=== PATIENT | male | born 1955 | race Caucasian/White ===

== ENCOUNTER 2017-12-14 16:43 | Emergency (ER) | payer MEDICARE, OTHER ==
[2017-12-14] MEDS ORDERED: traMADol TAB* 50 MG PO ONE (20:03)
[2017-12-14 21:14] VITALS: BP 145/85
--- NOTE | 2017-12-15 14:32 | ED ---
Uche Julien Sixian, scribed for Elkin Vogt MD on 12/14/17 at 1940 . Skin Complaint - HPI Summary HPI Summary: This patient is a 62 year old M presenting to ED with a chief complaint of open sores on buttocks since 1 week ago. The patient rates the pain 4/10 in severity. . Patient reports spending a moderate amount of time sitting in a chair. Pt found to have sores on his buttock by his PCP. Pt sent to the ED by his PCP for possible I&D. Pt denies ant F/C. - History of Current Complaint Chief Complaint: EDRashSkinAbscess Time Seen by Provider: 12/14/17 19:18 Stated Complaint: INFECTION ON BUTTOCKS Hx Obtained From: Patient Onset/Duration: Started Days Ago, Still Present Timing: Constant, Lasting Days Current Severity: Moderate Pain Intensity: 4 Pain Scale Used: 0-10 Numeric Skin Location: Other: - Buttocks Aggravating Symptom(s): Nothing Alleviating Symptom(s): Nothing - Additional Pertinent History Primary Care Physician: PUNEET - Allergy/Home Medications Allergies/Adverse Reactions: Allergies Allergy/AdvReac Type Severity Reaction Status Date / Time amlodipine Allergy Swelling Verified 12/14/17 16:49 blue dye Allergy Unknown Verified 12/14/17 16:49 Reaction Details meperidine Allergy GI Upset Verified 12/14/17 16:49 pregabalin [From Lyrica] Allergy Swelling Verified 12/14/17 16:49 spironolactone Allergy Swelling Verified 12/14/17 16:49 [From Aldactone] PMH/Surg Hx/FS Hx/Imm Hx Endocrine/Hematology History: Reports: Hx Anticoagulant Therapy - coumadin, Hx Anemia Denies: Hx Diabetes, Hx Thyroid Disease Cardiovascular History: Reports: Hx Auto Implanted Cardiovert Defib, Hx Cardiac Arrest - 01/24/14, Hx Congenital Heart Disease, Hx Congestive Heart Failure, Hx Coronary Artery Disease - HISTORY OF STENTS AND BYPASS SURGERY, Hx Hypercholesterolemia, Hx Hypertension - ON MEDICATION FOR, Hx Pacemaker/ICD - [employer]- DR. HUDSON FOLLOWS, Hx Peripheral Vascular Disease, Hx Valvular Heart Disease - AORTIC VALVE REPLACEMENT/AORTIC DISSECTION-SINCE SURGERY 2003, Other Cardiovascular Problems/Disorders - ATRIAL FIBRILLATION Respiratory History: Reports: Hx Pulmonary Embolism, Hx Seasonal Allergies, Hx Sleep Apnea, Other Respiratory Problems/Disorders - S/P TOBACCO USE Denies: Hx Asthma, Hx Chronic Obstructive Pulmonary Disease (COPD) GI History: Reports: Hx Gastroesophageal Reflux Disease - PER DR. REYNA'S NOTE - ON MEDICATION FOR, Other GI Disorders - ISCHEMIC COLITIS Denies: Hx Ulcer History: Reports: Other Problems/Disorders - ACUTE KIDNEY INJURY-2015 R/T MEDICATION Denies: Hx Renal Disease Musculoskeletal History: Reports: Hx Arthritis - NECK, UPPER BACK, Hx Back Problems - Degenerative disk disease Sensory History: Reports: Hx Contacts or Glasses - GLASSES AT TIMES Denies: Hx Hearing Aid Opthamlomology History: Reports: Hx Contacts or Glasses - GLASSES AT TIMES Neurological History: Reports: Other Neuro Impairments/Disorders - PERIPHERAL NEUROPATHY-EXTREMITIES Denies: Hx Dementia, Hx Seizures Psychiatric History: Denies: Hx Substance Abuse - Surgical History Surgery Procedure, Year, and Place: aortic dissection, right wrist surgery, tonsillectomy, cardiac stents CABG three vessel-[place] Coarctation of the aortaaortic valve replacement 2003 -[place] TOE AMPUTATED ON BOTH RIGHT & LEFT 2013 [facility] Hx Anesthesia Reactions: No - Immunization History Date of Influenza Vaccine: 07/2017 Infectious Disease History: Yes Infectious Disease History: Denies: Hx Hepatitis, Hx Human Immunodeficiency Virus (HIV), Traveled Outside the [place] in Last 30 Days - Family History Known Family History: Negative: Hypertension, Diabetes - Social History Alcohol Use: Occasionally Alcohol Amount: 1 BEER DAILY Substance Use Type: Reports: None Smoking Status (MU): Former Smoker Type: Cigarettes Amount Used/How Often: 2 PACKS A WEEK SINCE AGE 15 Length of Time of Smoking/Using Tobacco: 30 YRS Have You Smoked in the Last Year: No Review of Systems Negative: Fever Positive: Other - Sores on buttocks All Other Systems Reviewed And Are Negative: Yes Physical Exam - Summary Physical Exam Summary: Appearance: Well-appearing, no distress, Well-nourished Skin: Warm, color reflects adequate perfusion. Right buttocks 5x2 cm area of erythema, stage 1 ulcer. Nontender. No warmth. No drainage. Left buttocks 1.5x1 cm area of erythema. Superficial. Skin breakdown. Nontender. No warmth. No drainage. Head: Normal Head/Face inspection Eyes: Conjunctiva clear ENT: Normal inspection Neck: Supple, no nodes, no JVD. Respiratory: Lungs clear, Normal breath sounds, no respiratory distress Cardio: RRR, No murmur, pulses normal, brisk capillary refill Abdomen: soft, nontender, no guarding, no rebound Bowel sounds: present Musculoskeletal: Strength Intact/ ROM intact. No calf tenderness. No edema. Neuro: Alert, muscle tone normal, facial symmetry, speech normal, sensory/motor intact Psychological: Normal Triage Information Reviewed: Yes Vital Signs On Initial Exam: Initial Vitals Temp Pulse Resp BP Pulse Ox 96.9 F 70 14 127/53 98 12/14/17 16:49 18 16:49 12/14/17 16:49 12/14/17 16:49 12/14/17 16:49 Vital Signs Reviewed: Yes Diagnostics - Vital Signs Vital Signs Temp Pulse Resp BP Pulse Ox 12/14/17 16:49 96.9 F 70 14 127/53 98 - Laboratory Lab Statement: Any lab studies that have been ordered have been reviewed, and results considered in the medical decision making process. Course/Dx - Course Course Of Treatment: pt with stage 1 decubitus buttock ulcers. Plan for pain control with placement of wound dressing. Pt will f/u with his PCP for further monitoring - Differential Diagnoses - Skin Complaint Differential Diagnoses: Abscess, Cellulitis, Contact Dermatitis, Erythema Multiforme, Urticaria - Diagnoses Provider Diagnoses: Decubitus ulcer of buttock, stage 1 Discharge - Discharge Plan Condition: Improved Disposition: HOME Prescriptions: traMADol TAB* [Ultram*] 50 mg PO Q6HR PRN 3 Days #10 tab MDD 200mg PRN Reason: Pain Referrals: Bruce Reyna MD [Primary Care Provider] - Additional Instructions: RETURN TO THE EMERGENCY DEPARTMENT FOR CHANGING OR WORSENING SYMPTOMS. The documentation as recorded by the Uche dumont Sixian accurately reflects the service I personally performed and the decisions made by , Elkin Vogt MD.
== END 2017-12-14 21:10 | disposition home or self-care (01) ==
LOC: ED 16:43
DX: L89.311 Pressure ulcer of right buttock, stage 1 (principal); Z79.01 Long term (current) use of anticoagulants; I48.91 Unspecified atrial fibrillation; Z95.2 Presence of prosthetic heart valve; I50.9 Heart failure, unspecified; I25.10 Atherosclerotic heart disease of native coronary artery without angina pectoris; Z87.891 Personal history of nicotine dependence
CPT/HCPCS: 99282; A9270-GY

== ENCOUNTER 2018-01-23 16:46 | Emergency (ER) | payer MEDICARE, OTHER ==
--- NOTE | 2018-01-23 19:02 | ED ---
Adult Trauma - HPI Summary HPI Summary: Patient advised by PCP to come to the ED today S/P mechanical fall yesterday. Patient states he slipped out of a chair yesterday. Patient states he does not know why he is here, has no complaints. Denies head injury, LOC, vision change, [place], N/V, fever, cough, sore throat, CP, SOB, abdomen pain, musculoskeletal pain , change in urine or BM. Medical history of CAD, HLD, HTN, anemia, anoxic brain injury, CABG, ND, cardiac stents, A. fib. Positive anti-coag. M - History of Current Complaint Chief Complaint: EDGeneral Stated Complaint: GENERAL ILLNESS Time Seen by Provider: 01/23/18 17:59 Hx Obtained From: Patient Mechanism of Injury: Fall Ambulatory at the Scene: Yes Loss of Consciousness: no loss of consciousness Current Severity: None Pain Intensity: 0 Pain Scale Used: 0-10 Numeric Associated Signs & Symptoms: Positive: Negative - Additional Pertinent History Primary Care Physician: PUNEET - Allergy/Home Medications Allergies/Adverse Reactions: Allergies Allergy/AdvReac Type Severity Reaction Status Date / Time amlodipine Allergy Swelling Verified 12/14/17 16:49 blue dye Allergy Unknown Verified 12/14/17 16:49 Reaction Details meperidine Allergy GI Upset Verified 12/14/17 16:49 pregabalin [From Lyrica] Allergy Swelling Verified 12/14/17 16:49 spironolactone Allergy Swelling Verified 12/14/17 16:49 [From Aldactone] PMH/Surg Hx/FS Hx/Imm Hx Endocrine/Hematology History: Reports: Hx Anticoagulant Therapy - coumadin, Hx Anemia Denies: Hx Diabetes, Hx Thyroid Disease Cardiovascular History: Reports: Hx Auto Implanted Cardiovert Defib, Hx Cardiac Arrest - 01/24/14, Hx Congenital Heart Disease, Hx Congestive Heart Failure, Hx Coronary Artery Disease - HISTORY OF STENTS AND BYPASS SURGERY, Hx Hypercholesterolemia, Hx Hypertension - ON MEDICATION FOR, Hx Pacemaker/ICD - [employer]- DR. HUDSON FOLLOWS, Hx Peripheral Vascular Disease, Hx Valvular Heart Disease - AORTIC VALVE REPLACEMENT/AORTIC DISSECTION-SINCE SURGERY 2003, Other Cardiovascular Problems/Disorders - ATRIAL FIBRILLATION Respiratory History: Reports: Hx Pulmonary Embolism, Hx Seasonal Allergies, Hx Sleep Apnea, Other Respiratory Problems/Disorders - S/P TOBACCO USE Denies: Hx Asthma, Hx Chronic Obstructive Pulmonary Disease (COPD) GI History: Reports: Hx Gastroesophageal Reflux Disease - PER DR. REYNA'S NOTE - ON MEDICATION FOR, Other GI Disorders - ISCHEMIC COLITIS Denies: Hx Ulcer History: Reports: Other Problems/Disorders - ACUTE KIDNEY INJURY-2014 R/T MEDICATION Denies: Hx Renal Disease Musculoskeletal History: Reports: Hx Arthritis - NECK, UPPER BACK, Hx Back Problems - Degenerative disk disease Sensory History: Reports: Hx Contacts or Glasses - GLASSES AT TIMES Denies: Hx Hearing Aid Opthamlomology History: Reports: Hx Contacts or Glasses - GLASSES AT TIMES Neurological History: Reports: Other Neuro Impairments/Disorders - PERIPHERAL NEUROPATHY-EXTREMITIES Denies: Hx Dementia, Hx Seizures Psychiatric History: Denies: Hx Substance Abuse - Surgical History Surgery Procedure, Year, and Place: aortic dissection, right wrist surgery, tonsillectomy, cardiac stents CABG three vessel-[place] Coarctation of the aortaaortic valve replacement 2003 -[place] TOE AMPUTATED ON BOTH RIGHT & LEFT 2013 [facility] Hx Anesthesia Reactions: No - Immunization History Date of Influenza Vaccine: 07/2017 Infectious Disease History: No Infectious Disease History: Denies: Hx Hepatitis, Hx Human Immunodeficiency Virus (HIV), Traveled Outside the in Last 30 Days - Family History Known Family History: Negative: Hypertension, Diabetes - Social History Alcohol Use: Occasionally Alcohol Amount: 1 BEER DAILY Substance Use Type: Reports: None Smoking Status (MU): Former Smoker Type: Cigarettes Amount Used/How Often: 2 PACKS A WEEK SINCE AGE 15 Length of Time of Smoking/Using Tobacco: 30 YRS Have You Smoked in the Last Year: No Review of Systems Constitutional: Negative Eyes: Negative ENT: Negative Cardiovascular: Negative Respiratory: Negative Gastrointestinal: Negative Genitourinary: Negative Musculoskeletal: Negative Skin: Negative Neurological: Negative Psychological: Normal All Other Systems Reviewed And Are Negative: Yes Physical Exam - Summary Physical Exam Summary: Patient flexes and extends all joints of bilateral upper extremities and lower extremities without any indication of pain. No indication of pain with palpation of head, face, neck, back, chest wall, abdomen, hips. Patient ambulatory. Neuro exam normal. Vital signs stable. Lung sounds CTAB. Triage Information Reviewed: Yes Vital Signs On Initial Exam: Initial Vitals Temp Pulse Resp BP Pulse Ox 97.9 F 60 17 137/68 100 01/23/18 16:49 01/23/18 16:49 01/23/18 16:49 01/23/18 16:49 01/23/18 16:49 Vital Signs Reviewed: Yes Appearance: Positive: Well-Appearing Skin: Positive: Warm Head/Face: Positive: Normal Head/Face Inspection Eyes: Positive: Normal ENT: Positive: Normal ENT inspection Neck: Positive: Supple Respiratory/Lung Sounds: Positive: Clear to Auscultation Cardiovascular: Positive: Normal Abdomen Description: Positive: Nontender Musculoskeletal: Positive: Normal Neurological: Positive: Normal Psychiatric: Positive: Normal AVPU Assessment: Alert - [place] Coma Scale Best Eye Response: 4 - Spontaneous Best Motor Response: 6 - Obeys Commands Best Verbal Response: 5 - Oriented Coma Scale Total: 15 Diagnostics - Vital Signs Vital Signs Temp Pulse Resp BP Pulse Ox 01/23/18 16:49 97.9 F 60 17 137/68 100 - Laboratory Lab Statement: Any lab studies that have been ordered have been reviewed, and results considered in the medical decision making process. Adult Trauma Course/Dx - Diagnoses Provider Diagnoses: Fall Discharge - Sign-Out/Discharge Documenting (check all that apply): Discharge/Admit/Transfer - Discharge Plan Condition: Stable Disposition: HOME Patient Education Materials: Fall Prevention (ED) Referrals: Bruce Reyna MD [Primary Care Provider] - - Billing Disposition and Condition Condition: STABLE Disposition: HOME
[2018-01-23 20:04] VITALS: BP 154/96
== END 2018-01-23 20:03 | disposition home or self-care (01) ==
LOC: ED 16:46
DX: Z04.3 Encounter for examination and observation following other accident (principal); Z87.891 Personal history of nicotine dependence; Z88.8 Allergy status to other drugs, medicaments and biological substances
CPT/HCPCS: 99281

== ENCOUNTER 2019-05-10 21:04 | Inpatient (IN) | payer MEDICARE, OTHER ==
--- NOTE | 2019-05-10 21:56 | ED ---
GI/ HPI - HPI Summary HPI Summary: 63 year old male present with diarrhea today. per the alf he had diarrhea. He denies abdominal pain. He admits to some shortness breath. He states that he feels very swollen and his abdomen feels distended. He denies any bowel pain. No nausea and vomiting. denies any fever. Never been this before. Is on warfarin. Denies any chest pain. No urinary symptoms. No recent antibiotics. - History of Current Complaint Chief Complaint: EDNauseaVomitDiarrh Time Seen by Provider: 05/10/19 21:26 Stated Complaint: DIARRHEA PER EMS Pain Intensity: 0 - Additional Pertinent History Primary Care Physician: [id number] - Allergy/Home Medications Allergies/Adverse Reactions: Allergies Allergy/AdvReac Type Severity Reaction Status Date / Time amlodipine Allergy Swelling Verified 12/14/17 16:49 blue dye Allergy Unknown Verified 12/14/17 16:49 Reaction Details meperidine Allergy GI Upset Verified 12/14/17 16:49 pregabalin [From Lyrica] Allergy Swelling Verified 12/14/17 16:49 spironolactone Allergy Swelling Verified 12/14/17 16:49 [From Aldactone] Home Medications: Home Medications Entresto 24 mg-26 mg Tablet 1 tab PO BID 05/10/19 [History Confirmed 05/10/19] Myrbetriq 25 mg PO DAILY 05/10/19 [History Confirmed 05/10/19] PMH/Surg Hx/FS Hx/Imm Hx Endocrine/Hematology History: Reports: Hx Anticoagulant Therapy - coumadin, Hx Anemia Denies: Hx Diabetes, Hx Thyroid Disease Cardiovascular History: Reports: Hx Auto Implanted Cardiovert Defib, Hx Cardiac Arrest - 01/24/14, Hx Congenital Heart Disease, Hx Congestive Heart Failure, Hx Coronary Artery Disease - HISTORY OF STENTS AND BYPASS SURGERY, Hx Hypercholesterolemia, Hx Hypertension - ON MEDICATION FOR, Hx Pacemaker/ICD - [employer]- DR. HUDSON FOLLOWS, Hx Peripheral Vascular Disease, Hx Valvular Heart Disease - AORTIC VALVE REPLACEMENT/AORTIC DISSECTION-SINCE SURGERY 2003, Other Cardiovascular Problems/Disorders - ATRIAL FIBRILLATION Respiratory History: Reports: Hx Pulmonary Embolism, Hx Seasonal Allergies, Hx Sleep Apnea, Other Respiratory Problems/Disorders - S/P TOBACCO USE Denies: Hx Asthma, Hx Chronic Obstructive Pulmonary Disease (COPD) GI History: Reports: Hx Gastroesophageal Reflux Disease - PER DR. REYNA'S NOTE - ON MEDICATION FOR, Other GI Disorders - ISCHEMIC COLITIS Denies: Hx Ulcer History: Reports: Other Problems/Disorders - ACUTE KIDNEY INJURY-2015 R/T MEDICATION Denies: Hx Renal Disease Musculoskeletal History: Reports: Hx Arthritis - NECK, UPPER BACK, Hx Back Problems - Degenerative disk disease Sensory History: Reports: Hx Contacts or Glasses - GLASSES AT TIMES Denies: Hx Hearing Aid Opthamlomology History: Reports: Hx Contacts or Glasses - GLASSES AT TIMES Neurological History: Reports: Other Neuro Impairments/Disorders - PERIPHERAL NEUROPATHY-EXTREMITIES Denies: Hx Dementia, Hx Seizures Psychiatric History: Denies: Hx Substance Abuse - Surgical History Surgery Procedure, Year, and Place: aortic dissection, right wrist surgery, tonsillectomy, cardiac stents CABG three vessel-[place] Coarctation of the aortaaortic valve replacement 2003 -[place] TOE AMPUTATED ON BOTH RIGHT & LEFT 2013 [facility] Hx Anesthesia Reactions: No - Immunization History Date of Influenza Vaccine: 07/2017 Infectious Disease History: No Infectious Disease History: Denies: Hx Hepatitis, Hx Human Immunodeficiency Virus (HIV), Traveled Outside the in Last 30 Days - Family History Known Family History: Negative: Hypertension, Diabetes - Social History Alcohol Use: None Alcohol Amount: 1 BEER DAILY Substance Use Type: Reports: None Smoking Status (MU): Former Smoker Type: Cigarettes Amount Used/How Often: 2 PACKS A WEEK SINCE AGE 15 Length of Time of Smoking/Using Tobacco: 30 YRS Have You Smoked in the Last Year: No Review of Systems Negative: Fever Negative: Chest Pain Positive: Shortness Of Breath Positive: Diarrhea. Negative: Abdominal Pain, Vomiting, Nausea All Other Systems Reviewed And Are Negative: Yes Physical Exam Triage Information Reviewed: Yes Vital Signs On Initial Exam: Initial Vitals Temp Pulse Resp BP Pulse Ox 97.6 F 70 20 149/62 94 05/10/19 21:05 05/10/19 21:05 05/10/19 21:05 05/10/19 21:05 05/10/19 21:05 Vital Signs Reviewed: Yes Appearance: Positive: Well-Appearing Skin: Positive: Warm, Dry Head/Face: Positive: Normal Head/Face Inspection Eyes: Positive: Normal, Conjunctiva Clear ENT: Positive: Pharynx normal Respiratory/Lung Sounds: Positive: Clear to Auscultation, Breath Sounds Present Cardiovascular: Positive: Normal, RRR Abdomen Description: Positive: Nontender, Soft Bowel Sounds: Positive: Present Neurological: Positive: Normal Psychiatric: Positive: Normal Diagnostics - Vital Signs Vital Signs Temp Pulse Resp BP Pulse Ox 05/10/19 21:05 97.6 F 70 20 149/62 94 - Laboratory Result Diagrams: 05/10/19 21:53 05/10/19 21:53 Lab Statement: Any lab studies that have been ordered have been reviewed, and results considered in the medical decision making process. - Radiology chest Radiology Interpretation Completed By: ED Physician Summary of Radiographic Findings: chf - CT abd CT Interpretation Completed By: Radiologist Summary of CT Findings: 1. Findings of acute cholecystitis. No further imaging necessary. 2. Tiny pleural effusions. 3. Left adrenal myelolipoma. - EKG No standard instances Cardiac Rate: NL EKG Rhythm: Sinus Rhythm EKG Comparison: No Significant Change Summary of EKG Findings: sinus rhythm Re-Evaluation - Re-Evaluation First Eval Comment: still nontender abd Second Eval Re-Evaluation Time: 01:36 Comment: reexam states no abd tenderness. on exam nontender abd GIGU Course/Dx - Course Course Of Treatment: 63 year old male present with diarrhea today. per the alf he had diarrhea. He denies abdominal pain. He admits to some shortness breath. He states that he feels very swollen and his abdomen feels distended. He denies any bowel pain. No nausea and vomiting. denies any fever. Never been this before. Is on warfarin. Denies any chest pain. No urinary symptoms. No recent antibiotics. On exam nontender abdomen. Lungs clear auscultation. Rectal shows brown stool that was negative for occult blood. White blood count normal. hemoglobin is 11 which is lower than previous two months ago. chest xray shows chf. bnp elevated. gave lasix and feeling better. with elevated crp will get CT. CT shows cholecystitis. discussed with dr hilliard and said to give dose of zosyn as does not have pain in RUQ, no wbc and lfts normal so unclear if this is true cholecystitis at this time. discussed case with dr mckee who agrees to admit for potential GI bleed, chf and further work up for gallbladder. - Diagnoses Differential Diagnoses - Male: Colitis, Diverticulosis, Other - gi bleed Provider Diagnoses: Anemia, CHF (congestive heart failure), Diarrhea, Cholelithiasis Discharge - Sign-Out/Discharge Documenting (check all that apply): Patient Departure - Discharge Plan Condition: Stable Disposition: ADMITTED TO [facility] Referrals: Bruce Reyna MD [Primary Care Provider] - - Billing Disposition and Condition Condition: STABLE Disposition: Admitted to [facility]
[2019-05-10 22:01] LABS: ABS Basophils 0.1 10^3/ul (0-0.2); ABS Lymphocytes 0.4 10^3/ul (1.0-4.8); ABS Monocytes 0.6 10^3/ul (0-0.8); Eosinophil % 0.5 %; Hematocrit 34 % (42-52); Hemoglobin 11.3 g/dL (14.0-18.0); Lymphocyte % 5.5 %; Mean Corpuscular HGB Conc 34 g/dL (31-36); Mean Corpuscular Hemoglobin 29 pg (27-31); Mean Corpuscular Volume 86 fL (80-94); Platelet Count 229 10^3/uL (150-450); Red Blood Count 3.89 10^6 /uL (4.18-5.48); Red Cell Distribution Width 14 % (10-15); White Blood Count 8.1 10^3/uL (3.5-10.8)
[2019-05-10 22:09] LABS: Activated Partial Thrombo Time 46.1 seconds (26.0-38.0); INR 2.63 (0.82-1.09)
[2019-05-10 22:19] LABS: Albumin 3.8 g/dL (3.2-5.2); Albumin/Globulin Ratio 1.4 (1-3); BUN/Creatinine Ratio 18.8 (8-20); C Reactive Protein 196.7 mg/L (<8.01); Calcium 8.7 mg/dL (8.6-10.3); EGFR African American 52.8 (>60); EGFR Non-African American 43.6 (>60); Globulin 2.8 g/dL (2-4); Potassium 4.4 mmol/L (3.5-5.0); Total Bilirubin 0.8 mg/dL (0.2-1.0); Total Protein 6.6 g/dL (6.4-8.9)
[2019-05-10 22:21] LABS: Troponin I 0.03 ng/mL (<0.04)
[2019-05-10] MEDS ORDERED: Furosemide IV* 10 MG/ML 2 ML VIAL (20 MG) IV SLOW PU ONE (22:51)
[2019-05-10] MEDS ORDERED: Iodixanol* (CONTRAST) 320 MG/ML 100 ML SDV IV ONE (23:13)
[2019-05-11] MEDS ORDERED: Piperacillin/Tazobac ADVAN(*) 3.375 GM in NS 0.9% 100 ML* 100 ML IVPB ONE ×2 (01:37→12:01)
[2019-05-11 02:17] LABS: Urine Appearance Clear; Urine Bilirubin Negative (Negative); Urine Blood Negative (Negative); Urine Color Straw; Urine Glucose Negative (Negative); Urine Ketones Negative (Negative); Urine Nitrite Negative (Negative); Urine Protein Negative (Negative); Urine Urobilinogen Negative (Negative)
[2019-05-11 04:23] LABS: ABS Basophils 0.1 10^3/ul (0-0.2); ABS Eosinophils 0.1 10^3/ul (0-0.6); ABS Lymphocytes 0.6 10^3/ul (1.0-4.8); ABS Monocytes 0.4 10^3/ul (0-0.8); ABS Neutrophils 5.2 10^3/ul (1.5-7.7); Hematocrit 31 % (42-52); Hemoglobin 10.5 g/dL (14.0-18.0); Lymphocyte % 10.3 %; Mean Corpuscular HGB Conc 34 g/dL (31-36); Mean Corpuscular Hemoglobin 29 pg (27-31); Mean Corpuscular Volume 86 fL (80-94); Mean Platelet Volume 7.1 fL (7.4-10.4); Platelet Count 211 10^3/uL (150-450); Red Blood Count 3.59 10^6 /uL (4.18-5.48); Red Cell Distribution Width 14 % (10-15); White Blood Count 6.3 10^3/uL (3.5-10.8)
[2019-05-11] MEDS ORDERED: Phytonadione SUBCUT/IM Adult* 10 MG/ML AMP (IM or SQ not preferred route) IM ONE (04:53)
--- NOTE | 2019-05-11 07:12 | HP ---
CC: Dr. Bruce Reyna * ADMISSION HISTORY AND PHYSICAL: DATE OF ADMISSION: 05/11/19 PRIMARY CARE PHYSICIAN: Bruce Reyna MD CHIEF COMPLAINT: Black tarry stools and diarrhea. HISTORY OF PRESENT ILLNESS: This is a 63-year-old male with past medical history of aortic valve replacement; AFib, on Coumadin; coronary disease, status post coronary artery bypass graft; descending thoracic aortic dissection with medical management, here after the staff and the snf noticed that the patient was having some diarrhea and there was some concern that the diarrhea looked a little bloody. The patient otherwise offers no nausea, vomiting. No abdominal pain, no fever, or chills. However, the hemoglobin had dropped 2 g when compared to his old labs from two months ago. The patient is being admitted for monitoring of his hemoglobin. The patient otherwise denies any chest pain. He does have some chronic shortness of breath. 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 Ever's valve; history of degenerative disk disease; history of ischemic colitis; history of stable adrenal mass, consistent with an adenoma; history of acoustic neuroma, the patient unclear of which side; history of disease, and history of anemia with previous history of GI bleed without any obvious source of the bleeding. The patient has some anoxic encephalopathy with loss of coordination of both his upper and lower extremities and loss of sensation in the lower extremity bilaterally and asymmetric loss of sensation mostly on the right upper extremity, but a bit to a smaller degree on the left upper extremity as well. PAST SURGICAL HISTORY: Repair of coarctation of aorta in 1970 and then stenting in July 2004; history of right wrist surgery for osteomyelitis; aortic valve replacement in [address] Ever's valve with complication of descending aortic dissection; history of coronary bypass grafting with triple vessel graft; status post right toe amputation; status post amputation of the left toe as well twice; and history of tracheostomy during the cardiac arrest with encephalopathy. HOME MEDICATIONS: The patient is on: 1. Myrbetriq 25 mg oral daily. 2. Entresto 1 tablet p.o. b.i.d. 3. Robitussin 5 mL p.o. b.i.d. p.r.n. cough. 4. Lasix 20 mg p.o. daily. 5. Ipratropium bromide 2 sprays both nares t.i.d. 6. Ferrous gluconate 324 mg p.o. q.a.m. 7. Coumadin 7.5 mg on Sunday, Sunday, , Sunday, and 5 mg on Sunday, Sunday, Sunday. 8. Coreg 25 mg p.o. b.i.d. 9. Sertraline 100 mg p.o. q.a.m. 10. Protonix 40 mg q.p.m. 11. Calmoseptine topical ointment daily. 12. Magnesium oxide 250 mg oral daily. 13. Eplerenone 25 mg q.a.m. 14. Plavix 75 mg oral daily. 15. Atorvastatin 40 mg oral daily. 16. Lac-Hydrin 12% topical q.a.m. ALLERGIES: The patient has allergies to AMLODIPINE, BLUE DYE, MEPERIDINE, LYRICA, and SPIRONOLACTONE. FAMILY HISTORY: No family history of any coronary artery disease or strokes. Mother had a history of breast cancer. SOCIAL HISTORY: He currently lives at [facility], usually uses a walker or sometimes a wheelchair to ambulation. The patient is a former smoker. Denies any alcohol use or any drug use. He is a full code and his son Heriberto Wilkins is his healthcare proxy, phone number is [phone] REVIEW OF SYSTEMS: A 14-point review of systems did not reveal any new information other than what is stated in the HPI. PHYSICAL EXAMINATION GENERAL: The patient is awake, alert, and oriented x3. He does not appear to be in any acute respiratory distress. VITAL SIGNS: In the ER, BP was noted to be 138/67, heart rate 54, respiration rate 20, temperature documented at 97.6, and O2 saturation of 96% on room air. HEAD AND NECK: Atraumatic, normocephalic. Bilateral pupils are reactive. Oral mucosa was moist. Neck: Supple. No jugular venous distention. LUNGS: Clear to auscultation bilaterally. HEART: S1, S2. There was consistent clicking sound from his mechanical aortic valve. ABDOMEN: Obese, distended with positive bowel sounds. No real tenderness appreciated. EXTREMITIES: The patient had trace bipedal edema slightly worse on the right lower extremity. DIAGNOSTIC STUDIES/LAB DATA: CBC shows hemoglobin of 11.3, hematocrit 34, platelet count of 229, WBC of 8.1. Coagulation profile shows therapeutic INR of 2.6. Comprehensive metabolic panel shows elevated BUN at 30 and creatinine elevated at 1.3. BNP was elevated at 130 and C-reactive protein was also elevated at 196. Portable chest x-ray shows pulmonary vascular congestion. CT abdomen and pelvis is read as acute cholecystitis, no further imaging necessary and tiny pleural effusion and left adrenal myelolipoma. IMPRESSION: This is a 63-year-old gentleman here with diarrhea, who noted to have possible gastrointestinal bleeding. Incidentally, also CT scan was suggestive of acute cholecystitis; however, the patient does not have an obvious symptom of cholecystitis. 1. Anemia with a drop in hemoglobin, consistent with possible gastrointestinal bleed. We will type and cross [address] on hold. Given his extensive cardiac history, we will consult GI to evaluate the patient and we will keep the patient n.p.o. in the meantime and start the patient on IV Protonix b.i.d. as well and monitor him closely on the telemetry unit. 2. Elevated BUN and creatinine possibility due to upper gastrointestinal bleed. We will monitor for now as the patient does have a history of congestive heart failure. We will not give any IV fluids at this point. 3. History of atrial fibrillation, on Coumadin. We will hold Coumadin due to gastrointestinal bleed. Reversal would be based on GI recommendation. We will give supplementation of 10 mg of IM vitamin and consider FFP if the hemoglobin drops further. 4. History of coronary artery disease, status post coronary artery bypass grafting. We will hold the Plavix that the patient was on and restart rest of his BP medication. 5. Possible cholecystitis. We will get right upper quadrant ultrasound and get input from GI and can consider a surgical evaluation if it is present. 6. History of aortic valve replacement. 7. History of hypertension. 8. History of anoxic brain injury. 9. History of peripheral neuropathy. 10. History of chronic aortic distention. 11. DVT prophylaxis. We will hold any DVT prophylaxis at this point due to the patient's possible GI bleed. 12. Code status. The patient is currently full code. [id number]/[facility] #: [id number] MTDD
[2019-05-11 07:53] LABS: BUN/Creatinine Ratio 19.4 (8-20); Calcium 8.6 mg/dL (8.6-10.3); EGFR African American 62.1 (>60); EGFR Non-African American 51.3 (>60); Potassium 3.9 mmol/L (3.5-5.0)
[2019-05-11] MEDS ORDERED: Epleronone (NF) 25 MG TAB PO SCH (09:00)
[2019-05-11 09:10] LABS: Albumin 3.5 g/dL (3.2-5.2); Albumin/Globulin Ratio 1.4 (1-3); Globulin 2.5 g/dL (2-4); Indirect Bilirubin 0.4 mg/dL (0.3-1.0); Total Bilirubin 0.7 mg/dL (0.2-1.0)
--- NOTE | 2019-05-11 10:05 | PN ---
Subjective Date of Service: 05/11/19 Interval History: Pt c/o feeling tired, denies diarrhea, abd pain. NPO for testing Objective Active Medications: Ammonium Lactate (Lac-Hydrin 12 %) 1 applic TOPICAL QAM [facility] Atorvastatin Calcium (Lipitor*) 40 mg PO DAILY [facility] Carvedilol (Coreg Tab*) 25 mg PO BID [facility] Eplerenone (Inspra (Nf)) 25 mg PO QAM [facility]; Protocol Ipratropium Tie Siding (Ipratropium Tie Siding) 2 spray BOTH NARES TID [facility] Entresto 24 Mg-26 Mg (Tablet) 1 tab PO BID [facility] Pantoprazole Sodium (Protonix Iv*) 40 mg IV Q12HR [facility] Sertraline HCl (Zoloft*) 100 mg PO QAM [facility] Vital Signs - 8 hr 05/11/19 05/11/19 05/11/19 02:06 02:08 02:38 Temperature Pulse Rate 64 63 64 Respiratory Rate Blood Pressure 150/69 152/60 (mmHg) O2 Sat by Pulse 93 93 94 Oximetry 05/11/19 05/11/19 05/11/19 03:00 03:08 03:38 Temperature Pulse Rate 69 64 Respiratory Rate Blood Pressure 150/60 138/67 (mmHg) O2 Sat by Pulse 96 93 Oximetry 05/11/19 05/11/19 05/11/19 04:48 05:10 07:15 Temperature 98.1 F 97.6 F 99.1 F Pulse Rate 61 65 64 Respiratory 16 17 16 Rate Blood Pressure 133/54 148/52 128/51 (mmHg) O2 Sat by Pulse 99 95 98 Oximetry Oxygen Devices in Use Now: None Appearance: 63 yo m in nAD, AAOx3 Eyes: No Scleral Icterus, PERRLA Ears/Nose/Mouth/Throat: NL Teeth, Lips, Gums, Mucous Membranes Moist Neck: NL Appearance and Movements; NL JVP, Trachea Midline Respiratory: Symmetrical Chest Expansion and Respiratory Effort, Clear to Auscultation Cardiovascular: RRR, - - sharp metallic click of prosthetic valve heard Abdominal: NL Sounds; No Tenderness; No Distention Lymphatic: No Cervical Adenopathy Extremities: No Edema, No Clubbing, Cyanosis Skin: No Rash or Ulcers, No Nodules or Sclerosis Neurological: Alert and Oriented x 3, NL Muscle Strength and Tone Result Diagrams: 05/11/19 09:57 05/11/19 04:14 Microbiology and Other Data: Microbiology 05/11/19 05:25 Nasal Screen MRSA (PCR) - Final Nasal Mrsa Not Detected 05/10/19 21:31 Stool Occult Blood (DINESH) - Final Stool Assess/Plan/Problems-Billing Assessment: 63 year old man with h/o: HTN, HLD, CAD/OH/CABG, mechanical AVR, AICD placement, cardiac arrest with anoxic brain injury 2013, aortic coarctation s/p repair (1970), chronic aortic dissection s/p stent, recurrent ischemic colitis, osteomyelitis (s/p toe amputation), osteoarthritis, peripheral neuropathy, CORNELIUS on CPAP, & adrenal myolipoma presented with tarry black diarrhea - Patient Problems (1) Diarrhea Comment: no resolved So far no evidence of GI blee: stool heme -, Hb relatively stable will not reverse coumadin tx, recheck INR and Hb Awaiting GI consult (2) Gallbladder anomaly Comment: noted as :cholecystitis and stone at GB neck Pt's abd is nontender, LFT's : mild elevation of Alk phos-now back to norm will get confirmatory US, maybe the stone has migrated. Got zosyn in ED, so far no indication for antibiotic tx clinically, will monitor (3) TREMAINE (acute kidney injury) Comment: prerenal-resolving (4) CAD (coronary artery disease) Comment: holding Plavix due to eval for GI bleed (5) Hypertension Comment: controlled on Entresto, Coreg, Inspra. Lasix on hold (6) CORNELIUS on CPAP (7) DVT prophylaxis Comment: Coumadin Status and Disposition: OBV
[2019-05-11 10:09] LABS: ABS Eosinophils 0.1 10^3/ul (0-0.6); ABS Lymphocytes 0.5 10^3/ul (1.0-4.8); ABS Monocytes 0.4 10^3/ul (0-0.8); ABS Neutrophils 4.4 10^3/ul (1.5-7.7); Eosinophil % 1.5 %; Hematocrit 31 % (42-52); Hemoglobin 10.5 g/dL (14.0-18.0); Lymphocyte % 8.7 %; Mean Corpuscular HGB Conc 34 g/dL (31-36); Mean Corpuscular Hemoglobin 29 pg (27-31); Mean Corpuscular Volume 85 fL (80-94); Nucleated Red Blood Cells % 0.1; Platelet Count 199 10^3/uL (150-450); Red Blood Count 3.58 10^6 /uL (4.18-5.48); Red Cell Distribution Width 14 % (10-15); White Blood Count 5.5 10^3/uL (3.5-10.8)
[2019-05-11 10:10] LABS: Hematocrit 31 % (42-52); Hemoglobin 10.5 g/dL (14.0-18.0)
[2019-05-11] MEDS ORDERED: Acetaminophen SUPP* 650 MG SUPP PR PRN (10:47)
[2019-05-11] MEDS ORDERED: Midazolam* 1 MG/ML 10 ML VIAL (10 MG) ONE (10:56)
[2019-05-11] MEDS ORDERED: fentaNYL* 50 MCG/ML 2 ML VIAL (100 MCG VIAL) ONE (10:56)
[2019-05-11] MEDS ORDERED: Piperacillin/Tazobactam VIAL*) 3.375 GM VIAL (COMPD & OVERRIDE) IVPB ONE (12:28)
[2019-05-11] MEDS: IPRATROPIUM BR (NF)0.03% NASAL 1 SPRAY BTL BOTH NARES SCH ×2 (12:39→12:45)
[2019-05-11] MEDS ORDERED: Zosyn per Pharmacy* NOTE FOLLOW UP SCH (13:00)
[2019-05-11 13:51] LABS: ABS Eosinophils 0.1 10^3/ul (0-0.6); ABS Lymphocytes 0.5 10^3/ul (1.0-4.8); ABS Monocytes 0.4 10^3/ul (0-0.8); ABS Neutrophils 4.2 10^3/ul (1.5-7.7); Hematocrit 31 % (42-52); Hemoglobin 10.7 g/dL (14.0-18.0); Lymphocyte % 8.9 %; Mean Corpuscular HGB Conc 34 g/dL (31-36); Mean Corpuscular Hemoglobin 29 pg (27-31); Mean Corpuscular Volume 86 fL (80-94); Mean Platelet Volume 7.1 fL (7.4-10.4); Platelet Count 202 10^3/uL (150-450); Red Blood Count 3.64 10^6 /uL (4.18-5.48); Red Cell Distribution Width 15 % (10-15); White Blood Count 5.2 10^3/uL (3.5-10.8)
--- NOTE | 2019-05-11 14:02 | PRO ---
DATE: 05/11/19 - ROOM #[id number] REFERRING PHYSICIAN: Bruce Reyna* PROCEDURE: Upper gastrointestinal endoscopy through distal duodenum. INDICATION: This 63-year-old man, disabled from anoxic encephalopathy after a cardiac arrest with a 2014 [place], was admitted with anemia after being seen in the emergency room concerned about diarrhea that was dark. The onset and volume of the diarrhea is not clear. There was concern as his hemoglobin had dropped somewhat. He takes iron everyday (though is not aware of that from his encephalopathy) and a PPI listed as being in the evening. He had a gastroscopy by Dr. Zuñiga in March 2014 that was normal with a little bit of retained food. He had had black stool at that time, was concerned about anemia. He was heme positive then, though was heme negative through the emergency room yesterday with this admission. He was on multiple antiplatelet agents in 2013, also with Coumadin and remained with that treatment now. He has a prosthetic aortic valve, therefore has been on Zosyn. It is also of note that his gallbladder is abnormal on CT scan with a large stone. He also had a gastroscopy to place a PEG tube presumably during a long rehab stay in [place] after his cardiac arrest. Informed consent was obtained from the patient - that has been his usual custom. ENDOSCOPIST: Dr. Valdez. MEDICATION: Midazolam 3, fentanyl 12.5. FINDINGS: He is a chronically ill-appearing man answering slowly and with somewhat of a spacey orientation and voice. He was positioned left side down and moderate sedation induced with sequential doses of medication. ESOPHAGOGASTRODUODENOSCOPY: Larynx - symmetric, limited views. Esophagus - easily entered. The mucosa is normal in the upper, mid, and lower esophagus with the EG junction a little bit loose and with a somewhat irregular contour to the Z-line, though no mass or erosions whatsoever. There was no hiatal hernia. Stomach - a moderate amount of granular debris. It is not truly suggestive of a phytobezoar but just a great deal of granular debris, some of which may be pill debris. In general, the cardia, fundus, body, and antrum appear normal and the rugal folds appear normal. The antrum has quite vigorous peristalsis noted. Stomach capacity does appear large as the pylorus is reached with just 10 cm of scope external. Entering the bulb is a little bit difficult. Duodenum - the pylorus, bulb, and second through fourth portions appear normal. No blood was seen and no AVMs. IMPRESSION: 1. Gastric retention - mild with no history of recurring vomiting. 2. Anemia - no source seen. 3. Gallbladder abnormality on CT - the patient was nontender and soft preprocedure and will be placed back on a diet, and his symptoms and CRP can be monitored. [id number]/[facility] #: [id number] MTDD
[2019-05-11] MEDS: Sertraline* 100 MG TAB PO SCH (14:03)
[2019-05-11] MEDS: Ammonium Lactate 12% 1 APPLIC TUBE TOPICAL SCH (14:03)
[2019-05-11] MEDS: Atorvastatin* 40 MG TAB PO SCH (14:04)
[2019-05-11] MEDS: Pantoprazole IV* 40 MG IV SCH ×2 (14:04→21:01)
[2019-05-11] MEDS: Carvedilol TAB* 25 MG PO SCH ×2 (14:04→21:01)
--- NOTE | 2019-05-11 16:12 | CONS ---
GASTROENTEROLOGY CONSULT: DATE OF CONSULT: 05/11/19 CONSULTING PHYSICIANS: Dr. Scarlett Nayak, Dr. Bruce Reyna, Dr. Kevin Goodman. REASON FOR CONSULTATION: Dark stool perceived as diarrhea at his assisted living facility and on ER investigation, hemoglobin down to 11.3 from his baseline in a low 13s and then settling out at 10.5 on serial determinations. Stool, however, heme negative and he is on chronic oral iron of uncertain duration. HISTORY: This 63-year-old man, long-term resident of an assisted living facility after he had anoxic encephalopathy following a cardiac arrest from an NH in 2013, has been maintained on chronic warfarin for at least 20 years. Review of the record shows a remarkably tight control of his INR over the last 6 years, generally between 2 and 3.5 with an excursion to 3.98 in June 2013 , 4.08 in August 2015, and 5.14 in October 2015. Nonetheless, no episodes of bleeding attributed to warfarin revealed by a moderate chart review. The stools were said to be looser than usual yesterday and dark and he was sent in for evaluation. There was a question of blood being seen, though his stool is heme negative in the ER. He was admitted with a drop in hemoglobin. Upper endoscopy was requested. His BUN was slightly higher than normal at 30 but with baseline in a low 20s. Incidentally in the ER, a CT scan showed a 3.7 cm calcified gallstone with some stranding around the gallbladder and an ultrasound today corroborated that with thickening of the gallbladder wall. Nonetheless, the patient has been afebrile and denies any abdominal pain. He told me preprocedure that he could eat, although he was not necessarily hungry. PAST MEDICAL HISTORY: 1. Repair of coarctation of the aorta at age 15. 2. Repair of aortic thoracic aneurysm and coronary bypass x2 vessels along with prosthetic St. Ever's aortic valve and on warfarin ever since. 3. History of myocardial infarction in 2014 cared for at [facility] with prolonged rehabilitation course including gastrostomy tube. 4. Chronic anemia, he is on oral iron. Decision making not apparent. The MCV was in the high 70s, reflecting probable iron deficiency in fall 2013 and fall 2014. Platelet count has always been normal under 250, generally above 150. Creatinine has been edging into the mid 1 range at 1.5. Erythropoietin 34 in May 2014 and 69 in October 2014. Iron panels generally showing deficiency right up through November 2017 and then most recently on 03/20/19 at 19%. Ferritin has been in the low normal range generally, 82, 75 and 127, the last 3 determinations of May 2016 and August 2017. B12 last normal in November 2014 at 1160. LDH was normal at 162 in May 2014. 5. Recurrent ischemic colitis, diagnosis for an inflammatory process of the right colon, seen by Dr. Taylor and Dr. Zuñiga in 2008 or 2009. 6. Chronic pain, felt to be neuropathic. 7. Sleep apnea. 8. Cardiac output dysfunction and ventricular arrhythmias - followed by Dr. Goodman. To note, his BNP has been grossly elevated from 450 to 1300 on 5 determinations in 2012 and 2013 and then yesterday. 9. Gastroparesis - upper endoscopy in [address] Zuñiga showed some gastric retention, but no other abnormality. There was no blood. It was part of an anemia workup. At that time, he was on Plavix, aspirin and warfarin. He was heme positive at that time, though had been heme negative in June 2013, 10 months before. MEDICATIONS: Outpatient medications include: 1. Myrbetriq. 2. Pantoprazole 40 in the evening. 3. Magnesium oxide 250. 4. Plavix 75. 5. Warfarin, dose varies. 6. Ferrous gluconate 324. 7. Other cardiac meds. ALLERGIES: AMLODIPINE, SPIRONOLACTONE, PREGABALIN, and BLUE DYE (type not specified). 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 He was listed as . Today, he told me he had no relatives in the area, though the accuracy of that statement is unknown. Demographics show Yue Wilkins, his daughter registered at the hospital. REVIEW OF SYSTEMS: He denies any pain at this time. There is no history listed of recent syncope, seizure, cough, hemoptysis, jaundice, hepatitis. Ultrasound of right upper quadrant at this admission is the only one listed in a detailed review of radiology reports going back to 1999. There were no hepatobiliary abnormalities listed in January 2013 CT. He had bilateral inguinal hernias and a left adrenal adenoma. PHYSICAL EXAM: He is a chronically ill-appearing man, speaking slowly and with some uncertainty, though answering all questions. He has greasy skin and somewhat unkempt hair. He moves slowly. His hands show spasticity. HEENT exam is otherwise unremarkable. There is no obvious adenopathy. His lungs are clear. Heart sounds are regular and with prosthetic click. The abdomen is obese moderately so with an umbilical hernia. There is a left upper quadrant small wound consistent with a gastrostomy tube. There is no tenderness anywhere. The upper quadrants are particularly benign. Rectal is normal with average tone and gummy dark olive stools submitted for Hemoccult. Extremities show some surgical deformities on the toes. DIAGNOSTIC STUDIES/LAB DATA: Hemoglobin 10.5, hematocrit 31, MCV 85. INR 3.00 (vitamin K was administered). Creatinine 1.39, BUN 27. Electrolytes normal. Albumin 3.5, bilirubin 0.7, lipase 45. Last TSH in July 2014 at 2.94. IMPRESSION: This 63-year-old man disabled from intermediate sequelae of anoxic encephalopathy has been on warfarin for many years because of the prosthetic aortic valve and multiple thoracic vascular abnormalities that have been surgically repaired. He apparently has some degree of chronic aortic dissection. He did have a couple of episodes about 10 years ago what was felt to be right colonic ischemia, that apparently has settled down and he has never had surgery on that and this has not recurred in at least 6 to 7 years. He has had an anemia that has been somewhat puzzling as most of his stool Hemoccults have been negative. One was positive in 2013. Upper endoscopy then was unremarkable. It seems to have been difficult to get his iron level up. He is now prescribed a full dose oral replacement. The duration of that is unclear. It does not appear, as though he has ever had parenteral iron that might be indicated. None of that is directly related to the perception of loose stool. He has not had that in the last few hours here in the hospital. Not knowing the details of his diet or his usual bowel pattern makes things difficult to determine. On top of this, he has radiographic signs of gallbladder disease that one would not expect have been linked to anemia or loose stool. Given the difficulties in contemplating fully working him up and clearing him cardiac kwon for potential surgery, it actually seems reasonable right now to give him a trial of feeding. Given the anemia and the hemoglobin drop even though he is heme negative, upper endoscopy is planned. [id number]/[facility] #: [id number] [facility]
[2019-05-11 16:18] LABS: ABS Eosinophils 0.1 10^3/ul (0-0.6); ABS Lymphocytes 0.6 10^3/ul (1.0-4.8); ABS Monocytes 0.4 10^3/ul (0-0.8); ABS Neutrophils 4.1 10^3/ul (1.5-7.7); Hematocrit 31 % (42-52); Hemoglobin 10.4 g/dL (14.0-18.0); Lymphocyte % 10.8 %; Mean Corpuscular HGB Conc 34 g/dL (31-36); Mean Corpuscular Hemoglobin 29 pg (27-31); Mean Corpuscular Volume 86 fL (80-94); Nucleated Red Blood Cells % 0.1; Platelet Count 205 10^3/uL (150-450); Red Blood Count 3.56 10^6 /uL (4.18-5.48); Red Cell Distribution Width 14 % (10-15); White Blood Count 5.2 10^3/uL (3.5-10.8)
[2019-05-11] MEDS: ZOSYN 3.375 GM Q8H per EXTENDED INFUSION IVPB SCH ×2 (17:15)
[2019-05-11] MEDS ORDERED: Warfarin TAB(*) 7.5 MG PO SCH (18:00)
[2019-05-11 20:10] LABS: ABS Eosinophils 0.1 10^3/ul (0-0.6); ABS Lymphocytes 0.5 10^3/ul (1.0-4.8); ABS Monocytes 0.4 10^3/ul (0-0.8); ABS Neutrophils 4.3 10^3/ul (1.5-7.7); Eosinophil % 2.3 %; Hematocrit 30 % (42-52); Hemoglobin 10.5 g/dL (14.0-18.0); Lymphocyte % 9.6 %; Mean Corpuscular HGB Conc 35 g/dL (31-36); Mean Corpuscular Hemoglobin 30 pg (27-31); Mean Corpuscular Volume 85 fL (80-94); Mean Platelet Volume 7.1 fL (7.4-10.4); Platelet Count 220 10^3/uL (150-450); Red Blood Count 3.54 10^6 /uL (4.18-5.48); Red Cell Distribution Width 14 % (10-15); White Blood Count 5.3 10^3/uL (3.5-10.8)
[2019-05-12] MEDS: ZOSYN 3.375 GM Q8H per EXTENDED INFUSION IVPB SCH ×6 (01:45→17:27)
[2019-05-12 05:18] LABS: Hematocrit 30 % (42-52); Hemoglobin 10.3 g/dL (14.0-18.0); Mean Corpuscular HGB Conc 34 g/dL (31-36); Mean Corpuscular Hemoglobin 29 pg (27-31); Mean Corpuscular Volume 86 fL (80-94); Mean Platelet Volume 6.9 fL (7.4-10.4); Platelet Count 219 10^3/uL (150-450); Red Blood Count 3.51 10^6 /uL (4.18-5.48); Red Cell Distribution Width 14 % (10-15); White Blood Count 4.6 10^3/uL (3.5-10.8)
[2019-05-12 05:24] LABS: INR 2.69 (0.82-1.09)
[2019-05-12 05:31] LABS: Albumin 3.1 g/dL (3.2-5.2); Albumin/Globulin Ratio 1.1 (1-3); BUN/Creatinine Ratio 19.5 (8-20); C Reactive Protein 136.32 mg/L (<8.01); Calcium 8.4 mg/dL (8.6-10.3); EGFR African American 65.3 (>60); Globulin 2.7 g/dL (2-4); Potassium 3.9 mmol/L (3.5-5.0); Total Bilirubin 0.5 mg/dL (0.2-1.0); Total Protein 5.8 g/dL (6.4-8.9)
[2019-05-12 07:18] LABS: BUN/Creatinine Ratio 18.9 (8-20); Calcium 8.4 mg/dL (8.6-10.3); EGFR African American 65.9 (>60); EGFR Non-African American 54.4 (>60); Potassium 3.9 mmol/L (3.5-5.0)
[2019-05-12] MEDS: IPRATROPIUM BR (NF)0.03% NASAL 1 SPRAY BTL BOTH NARES SCH ×4 (08:06→19:57)
[2019-05-12] MEDS: Ammonium Lactate 12% 1 APPLIC TUBE TOPICAL SCH (09:14)
[2019-05-12] MEDS: Pantoprazole IV* 40 MG IV SCH ×2 (09:15→19:57)
[2019-05-12] MEDS: Carvedilol TAB* 25 MG PO SCH ×2 (09:29→19:57)
--- NOTE | 2019-05-12 10:48 | ECHO ---
*[facility]* [place] [address] Fax #: [phone] Transthoracic Echocardiogram Patient: Gabe Wilkins : 1955 Study Date: 05/12/2019 Age: 63 Gender: M HR: 55 bpm Height: 72 in /182.9 cm BSA: 2.18 m^2 Weight: 211.6 lb /96.2 kg BMI: 28.8 kg/m^2 *Multifocal Button Grinder: Soo Ramirez [facility] *Referring Physician: * Scarlett Nayak *Reading Physician: * Clinton Salazar MD Indications: Cardiomyopathy. History: Atrial fibrillation. Coronary artery disease. Aortic stenosis. Aortic aneurysm. PMH: Cardiomyopathy. Myocardial infarction. Risk factors: Hypertension. Labs, prior tests, procedures, and surgery: Permanent pacemaker system implantation. Coronary artery bypass grafting. Aortic valve replacement with a [employer] mechanical valve. Conclusions Summary: - Left ventricle: Systolic function is moderately reduced. The estimated ejection fraction is 30-35%. Moderate diffuse hypokinesis with regional variations. - Right ventricle: Systolic function is normal. - Mitral valve: Mild focal calcification, with involvement of chords. The findings are consistent with mild stenosis. There is mild regurgitation. - Aortic valve: There is a mechanical prosthetic valve. Normal function There is no evidence of stenosis. The mean systolic gradient is 6.0 mm Hg. The valve area by the peak velocity method is 1.40 cm^2. - Tricuspid valve: There is mild regurgitation. - Pericardium, extracardiac: There is no significant pericardial effusion. - Pulmonary arteries: Systolic pressure is moderately to severely increased. The peak pressure during systole by Doppler is 53.0 mm Hg. - Compared to study of 03/2019, there is little change. Study data: Transthoracic echocardiogram. Procedure: Transthoracic echocardiography was performed. Image quality was fair. Complete 2D, spectral Doppler, and color flow Doppler. Location: Bedside. Patient status: Inpatient. Patient room number: 440. Rhythm: Bradycardia. Findings Left ventricle: The cavity size is mildly to moderately dilated. Wall thickness is mildly to moderately increased. Systolic function is moderately reduced. The estimated ejection fraction is 30-35%. Moderate diffuse hypokinesis with regional variations. Features are consistent with a pseudonormal left ventricular filling pattern, with concomitant abnormal relaxation and increased filling pressure (grade 2 diastolic dysfunction). Right ventricle: The cavity size is normal. Pacer wire noted in the right ventricle. Systolic function is normal. Left atrium: The atrium is moderately to severely dilated. Right atrium: The atrium is mildly dilated. Pacer wire noted in right atrium. Mitral valve: The Mitral valve annulus appears mildly calcified. The leaflets are mildly calcified. Mild focal calcification, with involvement of chords. The findings are consistent with mild stenosis. There is mild regurgitation. Aortic valve: There is a mechanical prosthetic valve. There is no evidence of stenosis. There is no significant regurgitation. Tricuspid valve: The leaflets are normal thickness. There is no evidence of stenosis. There is mild regurgitation. Pulmonic valve: The leaflets are normal thickness. There is no evidence of stenosis. There is trace regurgitation. Aorta: Aortic arch: The aortic arch is poorly visualized. The aortic root appears normal. Pericardium: There is no significant pericardial effusion. Pulmonary arteries: The main pulmonary artery is mildly dilated. Systolic pressure is moederately to severely increased. Systemic veins: Inferior vena cava: The vessel is dilated. There is (< 50%) respiratory change in the IVC dimension. Measurements Left ventricle Value Ref Aortic valve continued Value Ref HERNANDEZ, LAX (H) 6.0 cm 4.2 - 5.8 VTI, S 38.0 cm ----- ESD, LAX (H) 4.3 cm 2.5 - 4.0 Mean grad, S 6.0 mm Hg ----- FS, LAX 28 % 25 - 43 Peak grad, S 10.0 mm Hg ----- PW, ED, LAX (H) 1.7 cm 0.6 - 1.0 LVOT/AV, VTI ratio 0.4 ----- EF 53 % 52 - 72 JOE, VTI 1.40 cm^2 ----- E', lat josé miguel, TDI (L) 7.6 cm/sec >=10.0 JOE, Vmax 1.40 cm^2 - ---- E/e', lat josé miguel, 23 TDI Mitral valve Value Ref E', med josé miguel, TDI (L) 5.6 cm/sec >=7.0 Peak E 1.75 m/sec - ---- E/e', med josé miguel, 31 Peak A 0.69 m/sec ---- - TDI Decel time 243 ms ----- E', avg, TDI 6.6 cm/sec PHT 97 ms ---- - E/e', avg, TDI (H) 27 <=14 Mean grad, D 3.0 mm Hg - ---- Peak grad, D 12.0 mm Hg ----- LVOT Value Ref Peak E/A ratio 2.5 ----- Diam, S 2.00 cm MVA, PHT 2.3 cm^2 ----- Area 3.1 cm^2 Peak saji, S 0.7 m/sec Pulmonic valve Value Ref VTI, S 17.0 cm Peak v, S 1.34 m/sec ----- Peak grad, S 2 mm Hg Peak grad, S 7.0 mm Hg ----- Mean grad, S 1 mm Hg Tricuspid valve Value Ref Ventricular septum Value Ref TR peak v (H) 3.6 m/sec <=2.8 IVS, ED (H) 1.3 cm 0.6 - 1.0 Peak RV-RA grad, S 52 mm Hg ----- Right ventricle Value Ref Aortic root Value Ref HERNANDEZ, LAX 2.6 cm Root diam 2.9 cm <4.3 HERNANDEZ minor ax, A4C 3.2 cm 1.9 - 3.5 mid Ascending aorta Value Ref Pressure, S 60 mm Hg AAo AP diam, S 3.3 cm ----- Left atrium Value Ref Aortic arch Value Ref AP dim, ES (H) 4.70 cm 3.00 - Arch diam 2.7 cm ----- 4.00 ML dim, A4C 4.6 cm Decending aorta Value Ref SI dim, A4C 6.0 cm Kinsey peak saji 0.99 m/sec ----- Vol/bsa, ES, A/L (H) 48 ml/m^2 16 - 34 Pulmonary artery Value Ref Right atrium Value Ref Pressure, S 53.0 mm Hg ----- SI dim, ES 5.1 cm 3.4 - 5.3 ML dim, ES, A4C (H) 4.9 cm 2.6 - 4.4 Inferior vena cava Value Ref SI dim, ES, A4C 5.1 cm 3.4 - 5.3 Diam 2.4 cm ----- Aortic valve Value Ref José Miguel diam, ED 1.9 cm Peak v, S 1.6 m/sec Legend: (L) and (H) colten values outside specified reference range. Prepared and electronically signed by Clinton Salazar MD 05/12/2019 10:48
--- NOTE | 2019-05-12 12:05 | CONS ---
CC: Dr. Bruce Reyna * CONSULTATION REPORT: DATE OF CONSULT: 05/12/19 REFERRING PROVIDER: Dr. Scarlett Nayak. PRIMARY CARE PROVIDER: Dr. Bruce Reyna. REASON FOR CONSULTATION: Abnormal appearing gallbladder on both CT scan and ultrasound. HISTORY OF PRESENT ILLNESS: Mr. Gabe Wilkins is a 63-year-old gentleman with a significant past medical history of aortic valve replacement; AFib, on Coumadin; coronary artery disease, status post coronary artery bypass grafting; history of ascending thoracic aortic dissection with medical management, who lives at the [facility], who was admitted after his nursing staff noted some diarrhea with concern with some black stool and/or blood. He offered no complaints of nausea, vomiting, abdominal pain, fever, chills. He had been apparently eating well. He denied any chest pain. He had no back discomfort. He has a history of ischemic cardiomyopathy with ejection fraction of about 40% , sleep apnea, as well as an apparent heart attack and with cardiac arrest in 2013 complicated by anoxic encephalopathy. He is awake, alert, and able to answer simple questions and offers no complaints of abdominal discomfort, nausea, or vomiting. When here in the hospital, it is noted his hemoglobin has been noted to essentially be stable without evidence of lower GI bleeding. He has been hemodynamically stable. His laboratory workup includes a normal white blood cell count with a stable hemoglobin. Electrolytes were within normal limits. He had normal bilirubin as well as liver transaminases. He was noted to have an elevated C-reactive protein on admission of 196. He underwent a CT scan of the abdomen and pelvis. I did review these images. This does show a large gallstone in the neck of the gallbladder with a thickened gallbladder wall with some mild pericholecystic inflammation. There were several other incidental findings. These were felt consistent with cholecystitis. An ultrasound was then performed, which showed similar findings. There was no ductal dilation. He was seen by Dr. Valdez for evaluation of the possible GI bleeding, underwent an upper endoscopy yesterday. This showed a distended stomach with no evidence of findings to suggest a source of his anemia. PAST MEDICAL HISTORY: 1. Coarctation of the aorta. 2. Coronary artery disease with a history of ME and stenting. 3. Aortic valve replacement, [employer] valve. 4. Aortic dissection. 5. Coronary bypass grafting. 6. Amputation of the left toe. 7. History of tracheostomy. MEDICATIONS: Include: 1. Entresto. 2. Coumadin. 3. Robitussin. 4. Lasix. 5. Ipratropium. 6. Iron supplementation. 7. Coreg. 8. Sertraline. 9. Protonix. 10. Plavix. 11. Atorvastatin. ALLERGIES: AMLODIPINE, BLUE DYE, MEPERIDINE, LYRICA, and SPIRONOLACTONE. SOCIAL HISTORY: Currently lives at [facility]. He uses a walker or sometimes a wheelchair to move around. He is a former smoker. He has a son who is his healthcare proxy. He denies alcohol or drug use. REVIEW OF SYSTEMS: Difficult to obtain from the patient. The chart shows no other significant findings. PHYSICAL EXAM: Temperature 97.6, pulse 57, blood pressure 131/51. In general, he is a well-developed, elderly male, appears to be in no apparent distress. He is awake, alert, conversive, and actually quite pleasant. He answers questions appropriately, although there was a slight delay. His lungs were clear to auscultation with normal respiratory effort. Heart was regular rate and rhythm. His abdomen was soft and slightly distended. He was somewhat tympanitic throughout. There are no prior surgical incisions. He has a small reducible umbilical hernia. There is no tenderness in the upper abdomen on deeper palpation in the epigastric and right upper quadrant. I appreciate no organomegaly. IMPRESSION: 1. Large gallstone in the neck of the gallbladder with some thickening of the gallbladder wall on both CT scan and ultrasound. He was admitted with concern for lower GI bleeding and has no complaints of abdominal discomfort and has been eating well with a good appetite. He had a normal white blood cell count. He has had no fever. His liver transaminases and bilirubin are normal. Concern was an elevated CRP. He has been started on Zosyn on admission and the CRP is down slightly. Once again, he has no further abdominal pain. He underwent an upper endoscopy yesterday for evaluation of mild anemia. It should be noted that his MCV has been normal. This was unremarkable for any acute findings. 2. Multiple medical problems as outlined above. The patient is scheduled for a HIDA scan today. I discussed his care with Dr. Nayak. He has no symptoms of abdominal discomfort, and I would suspect that this significant thickening of the gallbladder wall is not particularly acute. It may be more of a chronic appearance especially secondary to having a very large gallstone in the gallbladder neck. I suspect that the HIDA scan will show non-filling of the gallbladder, and I think at this point, clinically a decision needs to made as to whether a cholecystectomy would be entertained. At this point, with his multiple medical issues and the fact he is on Coumadin as well as Plavix and is having no symptoms, no fever, normal white blood cell count, that if the HIDA scan does show findings consistent with acute cholecystitis that a course of antibiotic such as 7 to 10 days would be appropriate. Another option would be no antibiotics at all with careful observation. For now, we will await the HIDA scan results and will discuss with the primary service. Thank you very much for this consultation. [id number]/[facility] #: [id number] TAMY
[2019-05-12] MEDS: CMC:Epleronone (NF) 25 MG TAB PO SCH (15:14)
[2019-05-12] MEDS: Atorvastatin* 40 MG TAB PO SCH (15:14)
[2019-05-12] MEDS: Sertraline* 100 MG TAB PO SCH (15:15)
--- NOTE | 2019-05-12 16:22 | PN ---
Subjective Date of Service: 05/12/19 Interval History: Pt feels "fine". Remembers that he has gotten weaker recently but doesn't remember if and when he was walking Objective Active Medications: Acetaminophen (Tylenol Supp*) 650 mg ND Q6H PRN PRN Reason: pain mild Ammonium Lactate (Lac-Hydrin 12 %) 1 applic TOPICAL QAM [facility] Last Admin: 05/12/19 09:14 Dose: 1 applic Amoxicillin/Clavulanate Potassium (Augmentin Tab*) 500 mg PO BID [facility] Atorvastatin Calcium (Lipitor*) 40 mg PO DAILY [facility] Last Admin: 05/12/19 15:14 Dose: 40 mg Carvedilol (Coreg Tab*) 25 mg PO BID [facility] Last Admin: 05/12/19 09:29 Dose: Not Given Epleren[facility] ([facility]ra (Nf)) [facility] [place] [facility] Protocol Last Admin: 05/12/19 15:14 Dose: 25 mg Piperacillin Sod/Tazobactam (Sod 3.375 gm/ Sodium Chloride) 100 mls @ 25 mls/ hr IVPB Q8H [facility] Last Admin: 05/12/19 09:15 Dose: 25 mls/hr Ipratropium Carolina (Ipratropium Carolina) 2 spray BOTH NARES TID [facility] Last Admin: 05/12/19 13:10 Dose: Not Given Pantoprazole Sodium (Protonix Iv*) 40 mg IV Q12HR [facility] Last Admin: 05/12/19 09:15 Dose: 40 mg Sacubitril/Valsartan (Entresto /(Nf)) 1 tab PO BID [facility] Last Admin: 05/12/19 12:49 Dose: Not Given Sertraline HCl (Zoloft*) 100 mg PO [facility] Last Admin: 05/12/19 15:15 Dose: 100 mg Warfarin Sodium (Coumadin Tab(*)) 5 mg PO MoWeFr@1700 [facility]; Protocol Warfarin Sodium (Coumadin Tab(*)) 7.5 mg PO SuTuThSa@1700 [facility]; Protocol Last Admin: 05/11/19 18:11 Dose: 7.5 mg Oxygen Devices in Use Now: None Appearance: 63 yo F in nAD, aAOx3, poor historian Eyes: No Scleral Icterus, PERRLA Ears/Nose/Mouth/Throat: NL Teeth, Lips, Gums, Mucous Membranes Moist Neck: NL Appearance and Movements; NL JVP Respiratory: Symmetrical Chest Expansion and Respiratory Effort, Clear to Auscultation Cardiovascular: NL Sounds; No Murmurs; No JVD Abdominal: NL Sounds; No Tenderness; No Distention Lymphatic: No Cervical Adenopathy Extremities: No Clubbing, Cyanosis Skin: No Rash or Ulcers, No Nodules or Sclerosis Neurological: Alert and Oriented x 3, - - slow to respond, poor historian, CN2- 12 grossly intact, b/l UE weakness distally-chronic, b/l LE's at 4+/5 Result Diagrams: 05/12/19 05:00 05/12/19 06:40 Microbiology and Other Data: Microbiology 05/11/19 05:25 Nasal Screen MRSA (PCR) - Final Nasal Mrsa Not Detected 05/10/19 21:31 Stool Occult Blood (DINESH) - Final Stool Assess/Plan/Problems-Billing Assessment: 63 year old man with h/o: HTN, HLD, CAD/AK/CABG, mechanical AVR, AICD placement, cardiac arrest with anoxic brain injury 2013, aortic coarctation s/p repair (1970), chronic aortic dissection s/p stent, recurrent ischemic colitis, osteomyelitis (s/p toe amputation), osteoarthritis, peripheral neuropathy, CORNELIUS on CPAP, & adrenal myolipoma presented with tarry black diarrhea - Patient Problems (1) Diarrhea Comment: resolved So far no evidence of GI bleed: stool heme -, Hb relatively stable resumed coumadin tx appreciate GI consult: EGD unremarkable apart for gastric retention (2) Gallbladder anomaly Comment: noted as :cholecystitis and stone at GB neckon CT/US and HIDA. Pt's abd is nontender, LFT's : mild elevation of Alk phos-now back to norm Appreciate both GI and surgery consult-pt is entirely asymptomatic. will cont tx with augmentin x 10 days. (3) TREMAINE (acute kidney injury) Comment: prerenal-resolving (4) CAD (coronary artery disease) Comment: holding Plavix due to eval for GI bleed (5) Hypertension Comment: controlled on Entresto, Coreg, Inspra. Lasix on hold (6) CORNELIUS on CPAP (7) DVT prophylaxis Comment: Coumadin Status and Disposition: OBV, but pt's assisted living facility refuses to take pt back before PT/OT evaluation. will place on full admit and ask PT/.OT to see pt
[2019-05-12] MEDS ORDERED: Warfarin TAB(*) 5 MG PO SCH (17:00)
[2019-05-12] MEDS: Amoxicillin/Clavulanate TAB* 500 MG PO SCH (19:57)
[2019-05-13] MEDS: ZOSYN 3.375 GM Q8H per EXTENDED INFUSION IVPB SCH ×4 (01:05→08:50)
[2019-05-13] MEDS: Pantoprazole IV* 40 MG IV SCH (08:50)
[2019-05-13] MEDS: Ammonium Lactate 12% 1 APPLIC TUBE TOPICAL SCH (08:50)
[2019-05-13] MEDS: Sertraline* 100 MG TAB PO SCH (08:51)
[2019-05-13] MEDS: Amoxicillin/Clavulanate TAB* 500 MG PO SCH (08:51)
[2019-05-13] MEDS: Atorvastatin* 40 MG TAB PO SCH (08:51)
[2019-05-13] MEDS: IPRATROPIUM BR (NF)0.03% NASAL 1 SPRAY BTL BOTH NARES SCH ×3 (08:52→13:22)
[2019-05-13] MEDS: Carvedilol TAB* 25 MG PO SCH (08:52)
[2019-05-13] MEDS: CMC:Epleronone (NF) 25 MG TAB PO SCH (09:21)
[2019-05-13 12:12] VITALS: BP 131/50
--- NOTE | 2019-05-13 15:59 | DS ---
CC: Dr. Reyna; Dr. Valdez; Dr. Kunz * DISCHARGE SUMMARY: DATE OF ADMISSION: 05/11/19 DATE OF DISCHARGE: 05/13/19 The patient is being discharged back to assisted living facility at [facility]. PRIMARY CARE PROVIDER: Dr. Reyna. CONDITION ON DISCHARGE: Stable. DISPOSITION AT DISCHARGE: As mentioned above, to assisted facility. DISCHARGE DIAGNOSES: 1. Possibility of tarry diarrhea, which was reported by assisted living facility, but not documented during the patient's hospital stay with GI bleed ruled out. 2. Incidentally found large gallbladder stone with possibility of cholecystitis in a patient who is otherwise asymptomatic with no complaints of abdominal pain and tolerating a full diet without any problems. 3. Anemia, which is chronic. MEDICATIONS AT DISCHARGE: Include: 1. Lac-Hydrin 12% topical on an as needed basis. 2. Lipitor 40 mg daily. 3. Coreg 25 mg b.i.d. 4. Plavix 75 mg daily. 5. Entresto one tablet b.i.d. 6. Inspra 25 mg daily. 7. Ferrous gluconate 324 mg daily. 8. Lasix 20 mg daily. 9. Guaifenesin 600 mg b.i.d. p.r.n. 10. Atrovent nasal spray 2 sprays both nostrils daily. 11. Magnesium 250 mg daily. 12. Calmoseptine ointment topically daily. 13. Protonix 40 mg daily. 14. Sertraline 100 mg daily. 15. Coumadin 5 mg Mondays, Wednesdays, and Fridays and 7.5 mg on Sundays, Saturdays, and Tuesdays. 16. Augmentin 500 mg b.i.d. for a total of 10 days, then stop. LABORATORY DATA AND STUDIES PERFORMED DURING THE HOSPITAL STAY: Included: On , white blood cell count of 4.6, hemoglobin of 10.3, hematocrit of 30, and platelets of 219. INR last obtained on 05/12/19 was 2.69. On 05/12/19, sodium of 140, potassium 3.9, chloride 108, carbon dioxide 26, BUN 25, creatinine 1.32. Liver function test last obtained on 05/12/19 showed AST of 13, ALT of 13, alkaline phosphatase of 83. C-reactive protein was 136. Bilirubin was noted to be 0.5. Microbiology test showed negative MRSA nasal swab. Stool occult blood was negative x2. CONSULTATIONS DURING THE HOSPITAL STAY: Included Dr. Valdez from Gastroenterology. PROCEDURES PERFORMED: EGD obtained on 05/11/19, impression: "Gastric retention , mild with no history of recurrent vomiting. Anemia, no source seen. Gallbladder abnormality on CT. The patient was nontender and soft preprocedure and will be placed back on diet and his symptoms and CRP can be monitored." The patient also was consulted by Dr. Kunz from General Surgery. IMAGING STUDIES: On 05/10/19, chest x-ray, impression: "Low lung volumes with subsequent atelectasis. Cardiomegaly. Pulmonary vascular congestion and mild interstitial edema favored, although with low lung volumes for this patient limit assessment." Abdomen and pelvis CT obtained on 05/10/19, impression: "Findings of acute cholecystitis. No further imaging necessary. Tiny pleural effusions. Left adrenal myelolipoma." Gallbladder ultrasound obtained on 05/11/19, impression: "The constellation of findings are consistent with acute cholecystitis. A 3.7 cm stone at the gallbladder neck is nonmobile, unchanged from supine to decubitus positioning during ultrasound exam." HIDA exam obtained on 05/12/19, impression: "Cystic duct obstruction consistent with acute calculous cholecystitis based on correlation with prior CT and ultrasound exam." HOSPITALIZATION COURSE: Gabe Wilkins is a 63-year-old male with history of mechanical aortic valve and multiple other comorbid conditions to which please I refer you to the patient's history and physical. The patient was directed from [facility] with report of tarry black stools and diarrhea. When he presented to the emergency department, he was mildly anemic, which is slightly worse from prior. His stool was heme negative. He was also complaining of no abdominal pain, but despite that, a CT was obtained which showed possibility of acute cholecystitis. The patient was placed on antibiotics. He was seen by Dr. Valdez in consultation, who performed another stool guaiac which was also negative. Upper endoscopy failed to show any source of possibility of bleeding, which also was not documented with stool Hemoccult. The patient afterwards tolerated regular diet without any problems. The confounding factor was that incidentally the patient was found to have "acute cholecystitis" with large 3.7 cm stone at the gallbladder neck without any symptoms. The patient has no nausea or vomiting, tolerated regular diet without any problems. Due to that, subsequent ultrasound of the gallbladder as well as HIDA scan was obtained with unchanged results of acute cholecystitis. I obtained a consultation from Dr. Kunz, who recommended for the patient to be treated as outpatient with oral antibiotics. The patient is not a good candidate for elective surgery for gallbladder removal. Clinically, he does not meet criteria for acute cholecystitis with normal LFTs and no leukocytosis, no fever and no abdominal pain. He did have elevated C-reactive protein. At this point, we are unsure of the acuity of the problem noted on the CT of the gallbladder. Once again, the patient is not a good surgical candidate. At the end of the patient's admission, [facility] requested for the patient to be evaluated by Physical Therapy. Due to that, the patient had been with decreasing mobility in the past several days. Physical Therapy evaluated the patient and [facility] accepted the patient back. He is recommended to follow up with his primary care provider in approximately 4 to 7 days. PHYSICAL EXAMINATION AT THE TIME OF DISCHARGE: Blood pressure of 131/50, heart rate of 62 and regular, respiratory rate 16, oxygen saturation 99% on room air, temperature 97.3. General: The patient is a very pleasant 63-year-old male who is in no acute distress. The patient is alert, awake, and oriented x3, but rather poor historian and forgetful. HEENT: Head: Atraumatic, normocephalic. Eyes: Pupils are equal, reactive to light and accommodation. Oropharynx is clear. Mucosa moist. Neck: Supple. No JVD. No bruits bilaterally. Cardiovascular: Regular rate and rhythm. No murmur. Respiratory: Clear to auscultation bilaterally. Abdomen: Soft, nontender. Bowel sounds are present in all 4 quadrants. Extremities: There is no edema. Pulses are +2 bilaterally. No clubbing or cyanosis. On neuro evaluation, the patient has somewhat generalized weakness with problems with making a fist in bilateral upper extremities due to some distal contractions that are chronic. The patient also has bilateral lower extremity weakness at 4+/5 also chronic. Speech is clear. Cranial nerves II through XII grossly intact. Please note that this is a short summary of the patient's hospitalization. Please refer to further medical records for details. TIME SPENT: Approximately 45 minutes was spent on discharge of this patient. [id number]/[facility] #: [id number] TAMY
== END 2019-05-13 14:02 | DRG 445 ==
LOC: ED 21:04 → INTOOBSV 05-11 03:45 → MEDTELE 05-11 03:45 → OBSVTOIN 05-11 16:41
PROVIDERS: ADMIT Internal Medicine; ATTEND Internal Medicine
PROC: 0DJ08ZZ Inspection of Upper Intestinal Tract, Via Natural or Artificial Opening Endoscopic (ICD-10-PCS; principal; 2019-05-11)
PROC: 5A09357 Assistance with Respiratory Ventilation, Less than 24 Consecutive Hours, Continuous Positive Airway Pressure (ICD-10-PCS; 2019-05-12)
DX: K80.00 Calculus of gallbladder with acute cholecystitis without obstruction (principal); N17.9 Acute kidney failure, unspecified; I48.91 Unspecified atrial fibrillation; D64.9 Anemia, unspecified; I25.10 Atherosclerotic heart disease of native coronary artery without angina pectoris; I25.5 Ischemic cardiomyopathy; G47.33 Obstructive sleep apnea (adult) (pediatric); I25.2 Old myocardial infarction; E78.5 Hyperlipidemia, unspecified; I73.9 Peripheral vascular disease, unspecified; K21.9 Gastro-esophageal reflux disease without esophagitis; G62.9 Polyneuropathy, unspecified; I50.9 Heart failure, unspecified; E78.00 Pure hypercholesterolemia, unspecified; I11.0 Hypertensive heart disease with heart failure; M19.90 Unspecified osteoarthritis, unspecified site; D17.79 Benign lipomatous neoplasm of other sites; R19.7 Diarrhea, unspecified; G89.29 Other chronic pain; K31.89 Other diseases of stomach and duodenum; Z95.2 Presence of prosthetic heart valve; Z95.1 Presence of aortocoronary bypass graft; Z95.5 Presence of coronary angioplasty implant and graft; Z89.422 Acquired absence of other left toe(s); Z89.421 Acquired absence of other right toe(s); Z88.8 Allergy status to other drugs, medicaments and biological substances; Z88.5 Allergy status to narcotic agent; Z91.041 Radiographic dye allergy status; Z80.3 Family history of malignant neoplasm of breast; Z87.891 Personal history of nicotine dependence; Z95.810 Presence of automatic (implantable) cardiac defibrillator; Z86.711 Personal history of pulmonary embolism; Z79.02 Long term (current) use of antithrombotics/antiplatelets; Z79.01 Long term (current) use of anticoagulants
CPT/HCPCS: 36415; 71045; 74177; 76705; 78226; 80048; 80053; 80076; 81003; 82270; 82272; 83605; 83690; 83880; 84484; 85014; 85018; 85025; 85027; 85610; 85730; 86140; 86850; 86900; 86901; 86922; 87641; 93005; 93306; 94660; 99156; 99157; 99284; A9270-GY; A9537; G8978-GP-CK; G8979-GP-CI; G8987-GO-CK; G8988-GO-CI; J1940; J2250; J2543; J3010; J3430; Q9967

== ENCOUNTER 2019-08-20 15:24 | Emergency (ER) | payer MEDICARE, OTHER ==
--- NOTE | 2019-08-20 15:56 | ED ---
Complex/Multi-Sys Presentation - HPI Summary HPI Summary: Patient is a 63 y/o M presenting to the ED for a chief complaint of falling asleep while eating lunch at [facility] on 08/20/19. Patient is a resident at [facility] and was sent to the ED by his PCP. Patient denies nausea, vomiting, weakness, headache, vision changes, or myalgia. He is currently asymptomatic. Patients PCP is concerned for sepsis and stroke due to the patients increasing fatigue, falling asleep for the last several day, and inability to walk on his own. Patient states he is able to ambulate at baseline and typically uses a walker. PMHx is significant for hypertension. PSHx is significant for open heart surgery in 1970. Patient denies tobacco, alcohol, or drug use. Allergies noted. Medications reviewed. - History Of Current Complaint Chief Complaint: EDWeakness Time Seen by Provider: 08/20/19 15:53 Hx Obtained From: Patient Onset/Duration: Sudden Onset, Resolved Timing: Intermittent, Lasting: Severity Currently: Moderate Severity Initially: Moderate Associated Signs And Symptoms: Positive: Other - Positive fatigue; negative myalgia or vision changes. Negative: Weakness, Headache, Nausea, Vomiting - Allergies/Home Medications Allergies/Adverse Reactions: Allergies Allergy/AdvReac Type Severity Reaction Status Date / Time amlodipine Allergy Swelling Verified 12/14/17 16:49 blue dye Allergy Unknown Verified 12/14/17 16:49 Reaction Details meperidine Allergy GI Upset Verified 12/14/17 16:49 pregabalin [From Lyrica] Allergy Swelling Verified 12/14/17 16:49 spironolactone Allergy Swelling Verified 12/14/17 16:49 [From Aldactone] Home Medications: Home Medications Amoxicillin PO (*) [Amoxicillin 500 MG CAP*] 2,000 mg PO ONCE PRN 08/20/19 [ History Confirmed 08/20/19] Bismuth Subsalicylate [Kermit Bismuth] 30 ml PO Q4HR PRN 08/20/19 [History Confirmed 08/20/19] Dextromethorphan Polistirex [Delsym] 10 ml PO Q12HR PRN 08/20/19 [History Confirmed 08/20/19] Furosemide TAB* [Lasix TAB*] 40 mg PO TU 08/20/19 [History Confirmed 08/20/19] Menthol/Zinc Oxide [Calmoseptine] 1 oin TOPICAL DAILY 08/20/19 [History Confirmed 08/20/19] Mirabegron (NF) [Myrbetriq (NF)] 25 mg PO DAILY 08/20/19 [History Confirmed ] Sacubitril/Valsartan /(NF) [Entresto (NF)] 1 tab PO BID 08/20/19 [ History Confirmed 08/20/19] PMH/Surg Hx/FS Hx/Imm Hx Previously Healthy: Yes Endocrine/Hematology History: Reports: Hx Anticoagulant Therapy - coumadin, Hx Thyroid Disease, Hx Anemia Denies: Hx Blood Disorders, Hx Blood Transfusions, Hx Bone Marrow Disease, Hx Diabetes, Hx Systemic Lupus Erythematosus, Hx Sickle Cell Disease, Hx Unexplained Bleeding, Other Endocrine/Hematological Disorders Cardiovascular History: Reports: Hx Auto Implanted Cardiovert Defib, Hx Cardiac Arrest - 01/24/14, Hx Congenital Heart Disease, Hx Congestive Heart Failure, Hx Coronary Artery Disease - HISTORY OF STENTS AND BYPASS SURGERY, Hx Hypercholesterolemia, Hx Hypertension - ON MEDICATION FOR, Hx Pacemaker/ICD - [employer]- DR. HUDSON FOLLOWS, Hx Peripheral Vascular Disease, Hx Valvular Heart Disease - AORTIC VALVE REPLACEMENT/AORTIC DISSECTION-SINCE SURGERY 2003, Other Cardiovascular Problems/Disorders - ATRIAL FIBRILLATION Denies: Hx Aneurysm, Hx Angina, Hx Angioplasty, Hx Cardiomegaly, Hx Deep Vein Thrombosis, Hx Embolism, Hx Hypotension, Hx Rheumatic Fever, Hx Syncope Respiratory History: Reports: Hx Pulmonary Embolism, Hx Seasonal Allergies, Hx Sleep Apnea, Other Respiratory Problems/Disorders - S/P TOBACCO USE Denies: Hx Asthma, Hx Bronchopulmonary Dysplasia, Hx Chronic Bronchitis, Hx Chronic Obstructive Pulmonary Disease (COPD), Hx Cystic Fibrosis, Hx Lung Cancer , Hx Pleural Effusion GI History: Reports: Hx Gall Bladder Disease, Hx Gastroesophageal Reflux Disease - PER DR. REYNA'S NOTE- ON MEDICATION FOR, Hx Gastrointestinal Bleed, Other GI Disorders - ISCHEMIC COLITIS Denies: Hx Cirrhosis, Hx Crohn's Disease, Hx Diverticulosis, Hx Hiatal Hernia , Hx Irritable Bowel, Hx Jaundice, Hx Obstructive Bowel, Hx Ileostomy, Hx Pyloric Stenosis, Hx Ulcer History: Reports: Other Problems/Disorders - ACUTE KIDNEY INJURY-2014 R/T MEDICATION Denies: Hx Renal Disease Musculoskeletal History: Reports: Hx Arthritis - NECK, UPPER BACK, Hx Back Problems - Degenerative disk disease Denies: Hx Bursitis, Hx Congenital Bone Abnormalities, Hx Fibromyalgia, Hx Gout, Hx Orthopedic Injury, Hx Osteoporosis, Hx Scoliosis, Hx Tendonitis, Other Musculoskeletal History Sensory History: Reports: Hx Contacts or Glasses Denies: Hx Cataracts, Hx Eye Injury, Hx Eye Prosthesis, Hx Glaucoma, Hx Legally Blind, Hx Macular Degeneration, Hx Vision Problem, Hx Deafness, Hx Hearing Aid, Hx Hearing Problem, Other Sensory Impairments Opthamlomology History: Reports: Hx Contacts or Glasses Denies: Hx Cataracts, Hx Eye Injury, Hx Eye Prosthesis, Hx Glaucoma, Hx Legally Blind, Hx Macular Degeneration, Hx Vision Problem, Other Sensory Impairments Neurological History: Reports: Other Neuro Impairments/Disorders - 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 bra Denies: Hx Dementia, Hx Developmental Delay, Hx Headaches, Hx Migraine, Hx Nerve Disease, Hx Seizures, Hx Spinal Cord Injury, Hx Transient Ischemic Attacks (TIA) Psychiatric History: Denies: Hx Anxiety, Hx Attention Deficit Hyperactivity Disorder, Hx Autism, Hx Eating Disorder, Hx Oppositional [place] Disorder, Hx Depression, Hx Panic Disorder, Hx Post Traumatic Stress Disorder, Hx Inpatient Treatment, Hx Community Mental Health Tx, Hx Schizophrenia, Hx Bipolar Disorder, Hx Suicide Attempt, Hx of Violent Episodes Against Others, Hx Substance Abuse Comment Only: Other Psychiatric Issues/Disorders - anoxic brain injury - Cancer History Hx Hematologic Symptoms: No Hx Chemotherapy: No Hx Radiation Therapy: No Hx Palliative Cancer Treatment: No - Surgical History Surgical History: Yes Surgery Procedure, Year, and Place: aortic dissection, right wrist surgery, tonsillectomy, cardiac stents CABG three vessel-[facility] Coarctation of the aortaaortic valve replacement 2003 -[facility] TOE AMPUTATED ON BOTH RIGHT & LEFT 2013 [facility] Hx Anesthesia Reactions: No - Immunization History Date of Influenza Vaccine: 07/2017 Infectious Disease History: No Infectious Disease History: Denies: Hx Clostridium Difficile, Hx Hepatitis, Hx Human Immunodeficiency Virus (HIV), Hx of Known/Suspected MRSA, Hx Shingles, Hx Tuberculosis, History Other Infectious Disease, Traveled Outside the [place] in Last 30 Days - Family History Known Family History: Negative: Hypertension, Diabetes - Social History Occupation: Unemployed Lives: Assisted Living Alcohol Use: Daily Alcohol Amount: 1 BEER DAILY Hx Substance Use: No Substance Use Type: Reports: None Hx Tobacco Use: Yes Smoking Status (MU): Former Smoker Type: Cigarettes Amount Used/How Often: 2 PACKS A WEEK SINCE AGE 15 Length of Time of Smoking/Using Tobacco: 30 YRS Have You Smoked in the Last Year: No Review of Systems Positive: Fatigue Positive: Other - Negative vision changes Negative: Vomiting, Nausea Negative: Myalgia Negative: Headache, Weakness All Other Systems Reviewed And Are Negative: Yes Physical Exam - Summary Physical Exam Summary: Constitutional: Well-developed, Well-nourished, Alert. (-) Distressed Skin: Warm, Dry HENT: Normocephalic; Atraumatic Eyes: Conjunctiva normal Neck: Musculoskeletal ROM normal neck. (-) JVD, (-) Stridor, (-) Tracheal deviation Cardio: Rhythm regular, rate normal, Heart sounds normal; Intact distal pulses; Radial pulses are 2+ and symmetric. (-) Murmur Pulmonary/Chest wall: Effort normal. (-) Respiratory distress, (-) Wheezes, (-) Rales Abd: Soft, (-) tenderness, (-) Distension, (-) Guarding, (-) Rebound Musculoskeletal: (-) Edema. Walks with his typical gait. Lymph: (-) Cervical adenopathy Neuro: Alert, Oriented x3 Psych: Mood and affect Normal Triage Information Reviewed: Yes Vital Signs On Initial Exam: Initial Vitals Temp Pulse Resp BP Pulse Ox 98.1 F 66 18 147/86 98 08/20/19 15:30 08/20/19 15:30 08/20/19 15:30 08/20/19 15:30 08/20/19 15:30 Vital Signs Reviewed: Yes Procedures - Sedation Patient Received Moderate/Deep Sedation with Procedure: No Diagnostics - Vital Signs Vital Signs Temp Pulse Resp BP Pulse Ox 08/20/19 15:30 98.1 F 66 18 147/86 98 - Laboratory Result Diagrams: 08/20/19 16:16 08/20/19 16:16 Lab Statement: Any lab studies that have been ordered have been reviewed, and results considered in the medical decision making process. - EKG 16:11 Cardiac Rate: Bradycardia - 59 BPM EKG Rhythm: Sinus Rhythm ST Segment: Normal Ectopy: None Summary of EKG Findings: EKG at 16:11 shows 59 BPM with sinus bradycardia, PVC in lead I, first degree heart block, normal QTc, no STEMI. Reviewed and interpreted by Dr. Avery. Re-Evaluation - Re-Evaluation First Eval Re-Evaluation Time: 18:01 Change: Unchanged Comment: At 18:01, patient still feels asymptomatic and has been unable to provide a urine sample. Complex Multi-Symp Course/Dx Course Of Treatment: Patient is here with frequent falling asleep over the past couple of days per intermediate staff. Patient has a history of anoxic brain injury but does answer all questions appropriately. Patient has no complaints upon arrival here. Patient blood performed which is grossly unremarkable. Given patient's vague symptoms and no complaints, he was discharged. - Diagnoses Provider Diagnoses: Fatigue Discharge ED - Sign-Out/Discharge Documenting (check all that apply): Patient Departure - Discharge - Discharge Plan Condition: Stable Disposition: HOME Patient Education Materials: Fatigue (ED) Referrals: Bruce Reyna MD [Primary Care Provider] - Additional Instructions: FOLLOW UP WITH YOUR PRIMARY CARE PROVIDER IN 1-3 DAYS. RETURN TO THE EMERGENCY DEPARTMENT IF YOU HAVE WORSENING OR ANY OTHER CONCERNING SYMPTOMS. - Billing Disposition and Condition Condition: STABLE Disposition: Home - Attestation Statements Document Initiated by Serg: Yes Documenting Scribe: Soo Zepeda Provider For Whom Serg is Documenting (Include Credential): Mike Avery MD Scribe Attestation: ISoo, scribed for Mike Avery MD on 08/20/19 at 1826. Scribe Documentation Reviewed: Yes Provider Attestation: The documentation as recorded by the Soo dumont accurately reflects the service I personally performed and the decisions made by me, Mike Avery MD Status of Scribe Document: Viewed
[2019-08-20 16:28] LABS: ABS Eosinophils 0.1 10^3/ul (0-0.6); ABS Lymphocytes 0.9 10^3/ul (1.0-4.8); ABS Monocytes 0.3 10^3/ul (0-0.8); Eosinophil % 3.3 %; Hematocrit 39 % (42-52); Hemoglobin 13.5 g/dL (14.0-18.0); Lymphocyte % 25.4 %; Mean Corpuscular HGB Conc 35 g/dL (31-36); Mean Corpuscular Hemoglobin 29 pg (27-31); Mean Corpuscular Volume 84 fL (80-94); Platelet Count 245 10^3/uL (150-450); Red Blood Count 4.63 10^6 /uL (4.18-5.48); Red Cell Distribution Width 14 % (10-15); White Blood Count 3.4 10^3/uL (3.5-10.8)
[2019-08-20 17:05] LABS: Albumin 3.9 g/dL (3.2-5.2); Albumin/Globulin Ratio 1.5 (1-3); BUN/Creatinine Ratio 17.3 (8-20); Calcium 8.8 mg/dL (8.6-10.3); EGFR African American 81.3 (>60); EGFR Non-African American 67.2 (>60); Globulin 2.6 g/dL (2-4); Potassium 4.3 mmol/L (3.5-5.0); Total Bilirubin 0.6 mg/dL (0.2-1.0); Total Protein 6.5 g/dL (6.4-8.9); Troponin I 0.01 ng/mL (<0.03)
[2019-08-20 18:22] VITALS: BP 149/50
== END 2019-08-20 19:26 | disposition home or self-care (01) ==
LOC: ED 15:24
DX: R53.83 Other fatigue (principal); R00.1 Bradycardia, unspecified; I44.0 Atrioventricular block, first degree; Z79.01 Long term (current) use of anticoagulants; Z95.2 Presence of prosthetic heart valve; Z95.810 Presence of automatic (implantable) cardiac defibrillator; K21.9 Gastro-esophageal reflux disease without esophagitis; Z95.1 Presence of aortocoronary bypass graft; Z89.422 Acquired absence of other left toe(s); Z89.421 Acquired absence of other right toe(s); Z88.8 Allergy status to other drugs, medicaments and biological substances; Z87.891 Personal history of nicotine dependence
CPT/HCPCS: 36415; 80053; 83880; 84484; 85025; 93005; 99282

== ENCOUNTER 2020-03-12 09:23 | Inpatient (IN) ==
[2020-03-12] MEDS ORDERED: NS 0.9% 1000 ml BAG 1,000 ML IV ONE (09:31)
[2020-03-12 10:28] LABS: ABS Lymphocytes 0.4 10^3/ul (1.0-4.8); ABS Monocytes 0.4 10^3/ul (0-0.8); Hematocrit 32 % (42-52); Lymphocyte % 7.7 %; Mean Corpuscular HGB Conc 34 g/dL (31-36); Mean Corpuscular Hemoglobin 30 pg (27-31); Mean Corpuscular Volume 87 fL (80-94); Mean Platelet Volume 7.7 fL (7.4-10.4); Platelet Count 163 10^3/uL (150-450); Red Blood Count 3.69 10^6 /uL (4.18-5.48); Red Cell Distribution Width 15 % (10-15); White Blood Count 5.4 10^3/uL (3.5-10.8)
[2020-03-12 10:42] LABS: Albumin 3.9 g/dL (3.2-5.2); Albumin/Globulin Ratio 1.7 (1-3); BUN/Creatinine Ratio 24.2 (8-20); C Reactive Protein 146.64 mg/L (<8.01); Calcium 8.8 mg/dL (8.6-10.3); EGFR African American 52.2 (>60); EGFR Non-African American 43.2 (>60); Globulin 2.3 g/dL (2-4); Potassium 4.5 mmol/L (3.5-5.0); Total Bilirubin 1.1 mg/dL (0.2-1.0); Total Protein 6.2 g/dL (6.4-8.9)
[2020-03-12] MEDS ORDERED: Piperacillin/Tazobac ADVAN(*) 3.375 GM in NS 0.9% 100 ml BAG 100 ML IVPB ONE ×2 (10:52→14:05)
[2020-03-12] MEDS ORDERED: Vancomycin(*) 1,500 MG in NS 0.9% 250 ml 250 ML IVPB ONE (10:52)
[2020-03-12] MEDS ORDERED: Piperacillin/Tazobac (*) 3.375 GM BAG ONE (11:45)
[2020-03-12] MEDS ORDERED: Iodixanol (CONTRAST) 320 MG/ML 100 ML SDV IV ONE (12:30)
[2020-03-12] MEDS ORDERED: NS 0.9% 250 ml 250 ML ONE (12:41)
[2020-03-12] MEDS ORDERED: Bismuth Subsalicylate 30 ML/527 MG ML PO PRN (13:58)
[2020-03-12] MEDS ORDERED: Vancomycin(*) 1,000 MG in NS 0.9% 250 ml 250 ML IVPB ONE (14:04)
[2020-03-12] MEDS ORDERED: Al Hydrox/Mg Hydrox/Simet LIQ 30 ML UDC PO PRN (14:21)
[2020-03-12] MEDS ORDERED: Vancomycin per Pharmacy 1 EA NOTE FOLLOW UP SCH (15:00)
[2020-03-12] MEDS ORDERED: Zosyn per Pharmacy NOTE FOLLOW UP SCH (15:00)
[2020-03-12 15:42] LABS: INR 2.98 (0.82-1.09)
[2020-03-12] MEDS: IPRATROPIUM BR (NF)0.03% NASAL 1 SPRAY BTL BOTH NARES SCH ×2 (16:36→21:59)
[2020-03-12] MEDS: ZOSYN 3.375 GM Q8H per EXTENDED INFUSION IV SCH (18:04)
[2020-03-12] MEDS: SACUBITRIL PO SCH (20:16)
[2020-03-12] MEDS: VALSARTAN PO SCH (20:16)
[2020-03-13] MEDS: ZOSYN 3.375 GM Q8H per EXTENDED INFUSION IV SCH ×3 (01:00→16:13)
[2020-03-13] MEDS: Vancomycin(*) 1,000 MG in NS 0.9% 250 ml 250 ML IV SCH ×2 (04:28→13:03)
[2020-03-13 05:30] LABS: ABS Lymphocytes 0.6 10^3/ul (1.0-4.8); ABS Monocytes 0.4 10^3/ul (0-0.8); Eosinophil % 0.3 %; Hematocrit 27 % (42-52); Hemoglobin 9.4 g/dL (14.0-18.0); Lymphocyte % 19.7 %; Mean Corpuscular HGB Conc 35 g/dL (31-36); Mean Corpuscular Hemoglobin 30 pg (27-31); Mean Corpuscular Volume 87 fL (80-94); Nucleated Red Blood Cells % 0.1; Platelet Count 129 10^3/uL (150-450); Red Blood Count 3.17 10^6 /uL (4.18-5.48); Red Cell Distribution Width 15 % (10-15); White Blood Count 3.1 10^3/uL (3.5-10.8)
[2020-03-13 05:46] LABS: INR 3.4 (0.82-1.09)
[2020-03-13 05:49] LABS: BUN/Creatinine Ratio 28.1 (8-20); EGFR African American 58.5 (>60); EGFR Non-African American 48.3 (>60); Potassium 3.9 mmol/L (3.5-5.0)
[2020-03-13] MEDS: SACUBITRIL PO SCH ×2 (09:46→20:25)
[2020-03-13] MEDS: VALSARTAN PO SCH ×2 (09:46→20:25)
[2020-03-13] MEDS: MIRABEGRON 25 MG PO SCH (09:48)
[2020-03-13] MEDS: CMCS - Epleronone 25 mg TAB (NF) PO SCH (09:48)
[2020-03-13] MEDS: IPRATROPIUM BR (NF)0.03% NASAL 1 SPRAY BTL BOTH NARES SCH ×3 (09:48→21:01)
[2020-03-13] MEDS: Cefepime 1 GM in Dextrose(*) 1 GM/50 ML BAG IV SCH ×2 (11:31→20:25)
[2020-03-13] MEDS: WARFARIN 1 MG PO SCH (16:13)
[2020-03-14] MEDS: ZOSYN 3.375 GM Q8H per EXTENDED INFUSION IV SCH ×2 (00:56→09:23)
[2020-03-14] MEDS: Vancomycin(*) 1,000 MG in NS 0.9% 250 ml 250 ML IV SCH ×2 (02:13→15:44)
[2020-03-14 06:54] LABS: INR 3.44 (0.82-1.09)
[2020-03-14 07:05] LABS: EGFR African American 62.9 (>60)
[2020-03-14] MEDS: Cefepime 1 GM in Dextrose(*) 1 GM/50 ML BAG IV SCH (08:48)
[2020-03-14] MEDS: CMCS - Epleronone 25 mg TAB (NF) PO SCH (08:48)
[2020-03-14] MEDS: MIRABEGRON 25 MG PO SCH (08:48)
[2020-03-14] MEDS: SACUBITRIL PO SCH ×2 (08:49→20:17)
[2020-03-14] MEDS: VALSARTAN PO SCH ×2 (08:49→20:17)
[2020-03-14] MEDS: IPRATROPIUM BR (NF)0.03% NASAL 1 SPRAY BTL BOTH NARES SCH ×3 (09:04→20:18)
[2020-03-14] MEDS ORDERED: Vancomycin Trough Check NOTE FOLLOW UP ONE (13:30)
[2020-03-14] MEDS: WARFARIN 1 MG PO SCH (16:23)
[2020-03-15] MEDS: Vancomycin(*) 1,000 MG in NS 0.9% 250 ml 250 ML IV SCH ×2 (02:46→14:29)
[2020-03-15] MEDS: VALSARTAN PO SCH ×2 (08:29→20:06)
[2020-03-15] MEDS: SACUBITRIL PO SCH ×2 (08:29→20:06)
[2020-03-15] MEDS: CMCS - Epleronone 25 mg TAB (NF) PO SCH (08:29)
[2020-03-15 10:09] LABS: ABS Eosinophils 0.1 10^3/ul (0-0.6); ABS Lymphocytes 0.5 10^3/ul (1.0-4.8); ABS Monocytes 0.3 10^3/ul (0-0.8); Eosinophil % 1.6 %; Hematocrit 33 % (42-52); Hemoglobin 11.2 g/dL (14.0-18.0); Lymphocyte % 11.3 %; Mean Corpuscular HGB Conc 34 g/dL (31-36); Mean Corpuscular Hemoglobin 29 pg (27-31); Mean Corpuscular Volume 87 fL (80-94); Mean Platelet Volume 7.4 fL (7.4-10.4); Nucleated Red Blood Cells % 0.1; Platelet Count 191 10^3/uL (150-450); Red Blood Count 3.81 10^6 /uL (4.18-5.48); Red Cell Distribution Width 15 % (10-15); White Blood Count 4.5 10^3/uL (3.5-10.8)
[2020-03-15 10:20] LABS: INR 2.48 (0.82-1.09)
[2020-03-15 10:24] LABS: BUN/Creatinine Ratio 21.8 (8-20); C Reactive Protein 85.11 mg/L (<8.01); Calcium 8.6 mg/dL (8.6-10.3); Potassium 3.9 mmol/L (3.5-5.0)
[2020-03-15] MEDS: IPRATROPIUM BR (NF)0.03% NASAL 1 SPRAY BTL BOTH NARES SCH ×2 (12:55→17:18)
[2020-03-15] MEDS: MIRABEGRON 25 MG PO SCH (12:55)
[2020-03-15] MEDS ORDERED: Warfarin 5 mg TAB (*) PO SCH (17:00)
[2020-03-15] MEDS: PTO:IPRATROPIUM BR (NF)0.06% NASAL 1 SPRAY BTL BOTH NARES SCH ×2 (18:10→20:07)
[2020-03-16] MEDS: Vancomycin(*) 1,000 MG in NS 0.9% 250 ml 250 ML IV SCH ×2 (02:45→14:29)
[2020-03-16 06:51] LABS: INR 2.35 (0.82-1.09)
[2020-03-16] MEDS: SACUBITRIL PO SCH ×2 (08:19→22:03)
[2020-03-16] MEDS: VALSARTAN PO SCH ×2 (08:19→22:03)
[2020-03-16] MEDS: MIRABEGRON 25 MG PO SCH (08:22)
[2020-03-16] MEDS: PTO:IPRATROPIUM BR (NF)0.06% NASAL 1 SPRAY BTL BOTH NARES SCH ×3 (08:24→22:05)
[2020-03-16] MEDS: CMCS - Epleronone 25 mg TAB (NF) PO SCH (08:24)
[2020-03-16] MEDS ORDERED: Midazolam 5 mg/5 ml VIAL 1 mg/ml 5 ml VIAL (5 mg) ONE (12:35)
[2020-03-16] MEDS ORDERED: fentaNYL 100 mcg/2 ml 50 MCG/ML VIAL ONE (12:35)
[2020-03-16] MEDS ORDERED: Naloxone 0.4 mg VIAL 0.4 mg/ml 1 ml VIAL ONE (12:35)
[2020-03-16] MEDS ORDERED: Flumazenil 0.5 mg/5 ml 0.1 MG/ML 5 ml VIAL ONE (12:35)
[2020-03-16] MEDS ORDERED: Warfarin 5 mg TAB (*) PO ONE (17:00)
[2020-03-16] MEDS ORDERED: WARFARIN 2 MG PO ONE (17:00)
[2020-03-17] MEDS: Vancomycin(*) 1,000 MG in NS 0.9% 250 ml 250 ML IV SCH (02:05)
[2020-03-17] MEDS: SACUBITRIL PO SCH ×2 (08:36→21:55)
[2020-03-17] MEDS: CMCS - Epleronone 25 mg TAB (NF) PO SCH (08:36)
[2020-03-17] MEDS: PTO:IPRATROPIUM BR (NF)0.06% NASAL 1 SPRAY BTL BOTH NARES SCH ×3 (08:36→21:56)
[2020-03-17] MEDS: VALSARTAN PO SCH ×2 (08:36→21:55)
[2020-03-17] MEDS: MIRABEGRON 25 MG PO SCH (08:37)
[2020-03-17] MEDS: Enoxaparin 100 MG/ML SYR(*) SUBCUT SCH ×2 (08:50→21:57)
[2020-03-17] MEDS: NS 0.9% IVPB SCH ×4 (10:11→21:51)
[2020-03-17] MEDS: AMPICILLIN ADVAN IVPB SCH ×4 (10:11→21:51)
[2020-03-17] MEDS: WARFARIN 6 MG PO SCH (16:20)
[2020-03-17] MEDS: cefTRIAXone(*) 2 GM ADDV.VIAL 2 GM in NS 0.9% 100 ml BAG 100 ML IV SCH (17:20)
[2020-03-18] MEDS: AMPICILLIN ADVAN IVPB SCH ×6 (01:09→21:23)
[2020-03-18] MEDS: NS 0.9% IVPB SCH ×6 (01:09→21:23)
[2020-03-18] MEDS: cefTRIAXone(*) 2 GM ADDV.VIAL 2 GM in NS 0.9% 100 ml BAG 100 ML IV SCH ×2 (03:59→17:51)
[2020-03-18 04:25] LABS: Urine Appearance Cloudy; Urine Bilirubin Negative (Negative); Urine Blood Negative (Negative); Urine Color Yellow; Urine Glucose Negative (Negative); Urine Ketones Negative (Negative); Urine Nitrite Negative (Negative); Urine Protein Negative (Negative); Urine Specific Gravity 1.018 (1.010-1.030); Urine Urobilinogen Negative (Negative)
[2020-03-18 08:07] LABS: INR 2.81 (0.82-1.09)
[2020-03-18] MEDS: PTO:IPRATROPIUM BR (NF)0.06% NASAL 1 SPRAY BTL BOTH NARES SCH ×2 (09:17→12:33)
[2020-03-18] MEDS: CMCS - Epleronone 25 mg TAB (NF) PO SCH (09:18)
[2020-03-18] MEDS: VALSARTAN PO SCH ×2 (09:18→21:26)
[2020-03-18] MEDS: SACUBITRIL PO SCH ×2 (09:18→21:26)
[2020-03-18] MEDS: MIRABEGRON 25 MG PO SCH (09:27)
[2020-03-18] MEDS: WARFARIN 6 MG PO SCH (16:55)
[2020-03-18] MEDS: Nystatin TOP POWDER 15 GM BTL TOPICAL SCH (21:31)
[2020-03-19] MEDS: NS 0.9% IVPB SCH ×6 (00:56→21:11)
[2020-03-19] MEDS: AMPICILLIN ADVAN IVPB SCH ×6 (00:56→21:11)
[2020-03-19] MEDS: PTO:IPRATROPIUM BR (NF)0.06% NASAL 1 SPRAY BTL BOTH NARES SCH ×4 (01:08→21:06)
[2020-03-19] MEDS: cefTRIAXone(*) 2 GM ADDV.VIAL 2 GM in NS 0.9% 100 ml BAG 100 ML IV SCH ×2 (04:56→16:25)
[2020-03-19 07:25] LABS: INR 3.08 (0.82-1.09)
[2020-03-19] MEDS: VALSARTAN PO SCH ×2 (09:50→21:06)
[2020-03-19] MEDS: SACUBITRIL PO SCH ×2 (09:50→21:06)
[2020-03-19] MEDS: CMCS - Epleronone 25 mg TAB (NF) PO SCH (09:51)
[2020-03-19] MEDS: MIRABEGRON 25 MG PO SCH (09:53)
[2020-03-19] MEDS: Nystatin TOP POWDER 15 GM BTL TOPICAL SCH ×2 (09:54→21:07)
[2020-03-19] MEDS: WARFARIN 6 MG PO SCH (17:22)
[2020-03-20] MEDS: NS 0.9% IVPB SCH ×6 (00:12→20:46)
[2020-03-20] MEDS: AMPICILLIN ADVAN IVPB SCH ×6 (00:12→20:46)
[2020-03-20] MEDS: cefTRIAXone(*) 2 GM ADDV.VIAL 2 GM in NS 0.9% 100 ml BAG 100 ML IV SCH ×2 (03:52→15:58)
[2020-03-20] MEDS: Nystatin TOP POWDER 15 GM BTL TOPICAL SCH ×2 (08:09→20:45)
[2020-03-20] MEDS: CMCS - Epleronone 25 mg TAB (NF) PO SCH (08:21)
[2020-03-20] MEDS: PTO:IPRATROPIUM BR (NF)0.06% NASAL 1 SPRAY BTL BOTH NARES SCH ×3 (08:23→20:46)
[2020-03-20] MEDS: SACUBITRIL PO SCH ×2 (08:23→20:45)
[2020-03-20] MEDS: VALSARTAN PO SCH ×2 (08:23→20:45)
[2020-03-20] MEDS: MIRABEGRON 25 MG PO SCH (10:53)
[2020-03-21] MEDS: AMPICILLIN ADVAN IVPB SCH ×6 (00:44→21:40)
[2020-03-21] MEDS: NS 0.9% IVPB SCH ×6 (00:44→21:40)
[2020-03-21] MEDS: cefTRIAXone(*) 2 GM ADDV.VIAL 2 GM in NS 0.9% 100 ml BAG 100 ML IV SCH ×2 (03:41→15:31)
[2020-03-21 05:37] LABS: INR 4.18 (0.82-1.09)
[2020-03-21] MEDS: SACUBITRIL PO SCH ×2 (09:17→21:42)
[2020-03-21] MEDS: PTO:IPRATROPIUM BR (NF)0.06% NASAL 1 SPRAY BTL BOTH NARES SCH ×3 (09:17→21:41)
[2020-03-21] MEDS: VALSARTAN PO SCH ×2 (09:17→21:42)
[2020-03-21] MEDS: Nystatin TOP POWDER 15 GM BTL TOPICAL SCH ×2 (09:19→21:44)
[2020-03-21] MEDS: Mirabegron 25 mg TAB (NF) PO SCH (10:32)
[2020-03-21] MEDS: CMCS - Epleronone 25 mg TAB (NF) PO SCH (10:46)
[2020-03-22] MEDS: NS 0.9% IVPB SCH ×4 (01:37→12:54)
[2020-03-22] MEDS: AMPICILLIN ADVAN IVPB SCH ×4 (01:37→12:54)
[2020-03-22] MEDS: cefTRIAXone(*) 2 GM ADDV.VIAL 2 GM in NS 0.9% 100 ml BAG 100 ML IV SCH (04:21)
[2020-03-22 04:27] LABS: ABS Eosinophils 0.1 10^3/ul (0-0.6); ABS Lymphocytes 0.7 10^3/ul (1.0-4.8); ABS Monocytes 0.4 10^3/ul (0-0.8); Eosinophil % 1.9 %; Hematocrit 32 % (42-52); Hemoglobin 10.7 g/dL (14.0-18.0); Lymphocyte % 14.8 %; Mean Corpuscular HGB Conc 34 g/dL (31-36); Mean Corpuscular Hemoglobin 30 pg (27-31); Mean Corpuscular Volume 87 fL (80-94); Mean Platelet Volume 6.9 fL (7.4-10.4); Platelet Count 237 10^3/uL (150-450); Red Blood Count 3.63 10^6 /uL (4.18-5.48); Red Cell Distribution Width 15 % (10-15); White Blood Count 4.6 10^3/uL (3.5-10.8)
[2020-03-22 04:33] LABS: INR 3.04 (0.82-1.09)
[2020-03-22 04:42] LABS: Albumin 3.7 g/dL (3.2-5.2); Albumin/Globulin Ratio 1.5 (1-3); BUN/Creatinine Ratio 15.3 (8-20); C Reactive Protein 26.73 mg/L (<8.01); Calcium 8.8 mg/dL (8.6-10.3); EGFR African American 74.7 (>60); EGFR Non-African American 61.8 (>60); Globulin 2.4 g/dL (2-4); Potassium 3.9 mmol/L (3.5-5.0); Total Bilirubin 0.8 mg/dL (0.2-1.0); Total Protein 6.1 g/dL (6.4-8.9)
[2020-03-22 08:55] VITALS: BP 162/80
[2020-03-22] MEDS: Mirabegron 25 mg TAB (NF) PO SCH (08:55)
[2020-03-22] MEDS: CMCS - Epleronone 25 mg TAB (NF) PO SCH (08:55)
[2020-03-22] MEDS: SACUBITRIL PO SCH (08:56)
[2020-03-22] MEDS: VALSARTAN PO SCH (08:56)
[2020-03-22] MEDS: PTO:IPRATROPIUM BR (NF)0.06% NASAL 1 SPRAY BTL BOTH NARES SCH (08:57)
[2020-03-22] MEDS: Nystatin TOP POWDER 15 GM BTL TOPICAL SCH (09:14)
[2020-03-22] MEDS ORDERED: WARFARIN 4 MG PO SCH (17:00)
== END 2020-03-22 13:36 | DRG 862 ==
LOC: ED 09:23 → MED 09:23 → SSU 03-21 15:16
PROVIDERS: ADMIT Internal Medicine; ATTEND Internal Medicine

== ENCOUNTER 2022-01-05 12:35 | Inpatient (IN) ==
[2022-01-05 14:01] LABS: ABS Lymphocytes 0.5 10^3/ul (1.0-4.8); ABS Monocytes 0.8 10^3/ul (0-0.8); Hematocrit 31 % (42-52); Hemoglobin 10.7 g/dL (14.0-18.0); Lymphocyte % 2.8 %; Mean Corpuscular HGB Conc 34 g/dL (31-36); Mean Corpuscular Hemoglobin 30 pg (27-31); Mean Corpuscular Volume 88 fL (80-94); Mean Platelet Volume 7.5 fL (7.4-10.4); Platelet Count 171 10^3/uL (150-450); Red Blood Count 3.54 10^6 /uL (4.18-5.48); Red Cell Distribution Width 14 % (10-15); White Blood Count 16.3 10^3/uL (3.5-10.8)
[2022-01-05 14:07] LABS: Activated Partial Thrombo Time 34.7 seconds (26.0-38.0); INR 2.61 (0.86-1.15)
[2022-01-05 14:39] LABS: TSH Ultra Thyroid Stim Horm 1.31 mcIU/mL (0.34-5.60)
[2022-01-05 14:55] LABS: ALT 12 U/L (7-52); Albumin 3.7 g/dL (3.2-5.2); Albumin/Globulin Ratio 1.9 (1-3); Alkaline Phosphatase 63 U/L (35-149); Blood Urea Nitrogen 58 mg/dL (6-24); CO2 Carbon Dioxide 26 mmol/L (22-32); Chloride 102 mmol/L (101-111); Globulin 1.9 g/dL (2-4); Glucose 124 mg/dL (70-100); Magnesium 2.2 mg/dL (1.9-2.7); Sodium 137 mmol/L (135-145); Total Protein 5.6 g/dL (6.4-8.9); eGFR CKD-EPI 14.2 (>60)
[2022-01-05 15:07] LABS: Anion Gap 9 mmol/L (2-11)
[2022-01-05] MEDS ORDERED: NS 0.9% 1000 ml BAG 1,000 ML IV ONE (15:47)
[2022-01-05 16:20] LABS: Potassium Redraw 4.6 mmol/L (3.5-5.0)
[2022-01-05 17:49] LABS: Urine Appearance Turbid; Urine Bilirubin Negative (Negative); Urine Blood 3+ (Negative); Urine Color Amber; Urine Glucose 1+(50 mg/dL) (Negative); Urine Ketones Negative (Negative); Urine Nitrite Negative (Negative); Urine Protein 2+(100 mg/dL) (Negative); Urine Specific Gravity 1.017 (1.002-1.030); Urine Urobilinogen Negative (Negative)
[2022-01-05 18:00] LABS: Urine Bacteria 1+ (Absent); Urine Red Blood Cell 3+(>10/hpf) (Absent); Urine Squamous Epithelial Cell Present (Absent); Urine White Blood Cell 3+(>20/hpf) (Absent)
[2022-01-05] MEDS ORDERED: cefTRIAXone 1 gm/50 mL D5W 1 GM/50 ML BAG IV ONE (18:22)
[2022-01-05 19:47] LABS: Phosphorus 2.7 mg/dL (2.5-5.0)
[2022-01-05] MEDS ORDERED: NS 0.9% 1000 ml BAG 1,000 ML IV SCH (20:00)
[2022-01-05] MEDS: IPRATROPIUM BR (NF)0.06% NASAL 1 SPRAY BTL BOTH NARES SCH (21:00)
[2022-01-05] MEDS ORDERED: Warfarin per PHARMACY **NOTE FOLLOW UP SCH (21:00)
[2022-01-05 21:46] LABS: C Reactive Protein 226.09 mg/L (<8.01)
[2022-01-05 23:23] LABS: Albumin 3.4 g/dL (3.2-5.2); Albumin/Globulin Ratio 1.9 (1-3); Calcium 7.7 mg/dL (8.6-10.3); Globulin 1.8 g/dL (2-4); Potassium 4.2 mmol/L (3.5-5.0); Total Bilirubin 0.7 mg/dL (0.2-1.0); Total Protein 5.2 g/dL (6.4-8.9); eGFR CKD-EPI 11.6 (>60)
[2022-01-06 05:53] LABS: ABS Lymphocytes 0.6 10^3/ul (1.0-4.8); ABS Monocytes 0.5 10^3/ul (0-0.8); ABS Neutrophils 8.7 10^3/ul (1.5-7.7); Eosinophil % 0.4 %; Hematocrit 31 % (42-52); Hemoglobin 10.3 g/dL (14.0-18.0); Lymphocyte % 5.6 %; Mean Corpuscular HGB Conc 34 g/dL (31-36); Mean Corpuscular Hemoglobin 30 pg (27-31); Mean Corpuscular Volume 89 fL (80-94); Mean Platelet Volume 7.6 fL (7.4-10.4); Platelet Count 154 10^3/uL (150-450); Red Blood Count 3.42 10^6 /uL (4.18-5.48); Red Cell Distribution Width 15 % (10-15); White Blood Count 9.8 10^3/uL (3.5-10.8)
[2022-01-06 06:03] LABS: INR 2.35 (0.86-1.15)
[2022-01-06 06:21] LABS: Magnesium 2.2 mg/dL (1.9-2.7)
[2022-01-06 07:03] LABS: Albumin 3.3 g/dL (3.2-5.2); Albumin/Globulin Ratio 1.7 (1-3); Calcium 7.9 mg/dL (8.6-10.3); Globulin 1.9 g/dL (2-4); Potassium 3.9 mmol/L (3.5-5.0); Total Bilirubin 0.6 mg/dL (0.2-1.0); Total Protein 5.2 g/dL (6.4-8.9); eGFR CKD-EPI 11.2 (>60)
[2022-01-06] MEDS ORDERED: Perflutren Lipid Microsphere 3 ML VIAL ONE (13:36)
[2022-01-06] MEDS: Warfarin DAILY REMINDER **NOTE FOLLOW UP SCH (17:38)
[2022-01-06] MEDS: cefTRIAXone 1 gm/50 mL D5W 1 GM/50 ML BAG IV SCH (20:44)
[2022-01-06] MEDS: IPRATROPIUM BR (NF)0.06% NASAL 1 SPRAY BTL BOTH NARES SCH (20:46)
[2022-01-07 07:44] LABS: ABS Eosinophils 0.1 10^3/ul (0-0.6); ABS Lymphocytes 0.4 10^3/ul (1.0-4.8); ABS Monocytes 0.3 10^3/ul (0-0.8); ABS Neutrophils 2.7 10^3/ul (1.5-7.7); Eosinophil % 2.4 %; Hematocrit 31 % (42-52); Hemoglobin 10.7 g/dL (14.0-18.0); Lymphocyte % 11.9 %; Mean Corpuscular HGB Conc 34 g/dL (31-36); Mean Corpuscular Hemoglobin 30 pg (27-31); Mean Corpuscular Volume 89 fL (80-94); Mean Platelet Volume 7.3 fL (7.4-10.4); Platelet Count 177 10^3/uL (150-450); Red Blood Count 3.54 10^6 /uL (4.18-5.48); Red Cell Distribution Width 15 % (10-15); White Blood Count 3.5 10^3/uL (3.5-10.8)
[2022-01-07 08:01] LABS: INR 2.14 (0.86-1.15)
[2022-01-07 09:08] LABS: Albumin 3.5 g/dL (3.2-5.2); Magnesium 2.4 mg/dL (1.9-2.7)
[2022-01-07 09:14] LABS: Albumin/Globulin Ratio 1.7 (1-3); Calcium 8.5 mg/dL (8.6-10.3); Globulin 2.1 g/dL (2-4); Potassium 4.1 mmol/L (3.5-5.0); Total Bilirubin 0.5 mg/dL (0.2-1.0); Total Protein 5.6 g/dL (6.4-8.9); eGFR CKD-EPI 17.6 (>60)
[2022-01-07] MEDS: IPRATROPIUM BR (NF)0.06% NASAL 1 SPRAY BTL BOTH NARES SCH ×4 (09:44→20:32)
[2022-01-07] MEDS: Warfarin DAILY REMINDER **NOTE FOLLOW UP SCH (17:01)
[2022-01-07] MEDS: cefTRIAXone 1 gm/50 mL D5W 1 GM/50 ML BAG IV SCH (20:32)
[2022-01-08 06:11] LABS: ABS Lymphocytes 0.3 10^3/ul (1.0-4.8); ABS Monocytes 0.4 10^3/ul (0-0.8); Hematocrit 32 % (42-52); Hemoglobin 10.9 g/dL (14.0-18.0); Lymphocyte % 5.9 %; Mean Corpuscular HGB Conc 35 g/dL (31-36); Mean Corpuscular Hemoglobin 30 pg (27-31); Mean Corpuscular Volume 88 fL (80-94); Mean Platelet Volume 7.4 fL (7.4-10.4); Platelet Count 196 10^3/uL (150-450); Red Blood Count 3.58 10^6 /uL (4.18-5.48); Red Cell Distribution Width 15 % (10-15); White Blood Count 4.8 10^3/uL (3.5-10.8)
[2022-01-08 06:19] LABS: INR 2.25 (0.86-1.15)
[2022-01-08 06:36] LABS: Calcium 8.7 mg/dL (8.6-10.3); Potassium 4.2 mmol/L (3.5-5.0); eGFR CKD-EPI 32.5 (>60)
[2022-01-08] MEDS: IPRATROPIUM BR (NF)0.06% NASAL 1 SPRAY BTL BOTH NARES SCH ×3 (09:40→20:46)
[2022-01-08] MEDS: Warfarin DAILY REMINDER **NOTE FOLLOW UP SCH (16:31)
[2022-01-08] MEDS: cefTRIAXone 1 gm/50 mL D5W 1 GM/50 ML BAG IV SCH (20:36)
[2022-01-09 05:49] LABS: INR 2.24 (0.86-1.15)
[2022-01-09 06:27] LABS: Calcium 8.6 mg/dL (8.6-10.3); eGFR CKD-EPI 43.1 (>60)
[2022-01-09] MEDS: Warfarin DAILY REMINDER **NOTE FOLLOW UP SCH (17:34)
[2022-01-09] MEDS: IPRATROPIUM BR (NF)0.06% NASAL 1 SPRAY BTL BOTH NARES SCH (21:59)
[2022-01-09] MEDS: cefTRIAXone 1 gm/50 mL D5W 1 GM/50 ML BAG IV SCH (22:15)
[2022-01-10 07:11] LABS: Hematocrit 29 % (42-52); Hemoglobin 9.9 g/dL (14.0-18.0); Mean Platelet Volume 7.6 fL (7.4-10.4); Platelet Count 179 10^3/uL (150-450)
[2022-01-10 07:14] LABS: INR 2.29 (0.86-1.15)
[2022-01-10] MEDS: Warfarin DAILY REMINDER **NOTE FOLLOW UP SCH (17:23)
[2022-01-10] MEDS: cefTRIAXone 1 gm/50 mL D5W 1 GM/50 ML BAG IV SCH (20:32)
[2022-01-10] MEDS: IPRATROPIUM BR (NF)0.06% NASAL 1 SPRAY BTL BOTH NARES SCH ×2 (21:31→21:32)
[2022-01-11 06:25] LABS: Hematocrit 30 % (42-52); Hemoglobin 10.4 g/dL (14.0-18.0); Mean Platelet Volume 7.1 fL (7.4-10.4); Platelet Count 229 10^3/uL (150-450)
[2022-01-11 06:33] LABS: INR 2.53 (0.86-1.15)
[2022-01-11] MEDS ORDERED: CMC:Epleronone 25 mg TAB (NF) PO SCH (09:00)
[2022-01-11] MEDS ORDERED: SPIRIVA Respimat (tiotropium) 2.5 mcg/inh Inhaler INH ONE (09:38)
[2022-01-11] MEDS: IPRATROPIUM BR (NF)0.06% NASAL 1 SPRAY BTL BOTH NARES SCH (09:55)
[2022-01-11 10:54] VITALS: BP 172/58
[2022-01-11 12:10] LABS: Rapid COVID-19 Molecular Undetected (Undetected)
== END 2022-01-11 15:25 | DRG 689 ==
LOC: ED 12:35 → EDHOLD 21:20 → SUATTDRO 21:20 → MED 21:30
PROVIDERS: ADMIT Student in an Organized Health Care Education/Training Program; ATTEND Internal Medicine

== ENCOUNTER 2023-08-01 13:15 | Inpatient (IN) ==
[2023-08-01] MEDS ORDERED: Iodixanol (CONTRAST) 320 MG/ML 100 ML SDV IV ONE (13:28)
[2023-08-01 13:36] LABS: ABS Basophils 0.1 10^3/uL (0.0-0.1); ABS Lymphocytes 0.5 10^3/uL (1.0-4.8); ABS Neutrophils 10.5 10^3/uL (1.5-7.6); Eosinophil % 0.3 %; Hematocrit 25.8 % (38-53); Hemoglobin 8.9 g/dL (13.2-16.3); Lymphocyte % 4.3 %; Mean Corpuscular Hemoglobin 32.2 pg (27-33); Mean Corpuscular Hgb Conc 34.3 g/dL (31-36); Mean Corpuscular Volume 93.9 fL (80-97); Mean Platelet Volume 6.9 fL (7.5-11.2); Platelet Count 241 10^3/uL (150-450); Red Blood Count 2.75 10^6/uL (4.06-5.63); Red Cell Distribution Width 14.6 % (12-17); White Blood Count 12.1 10^3/uL (3.6-10.2)
[2023-08-01] MEDS ORDERED: Lactated Ringers 1000 ml BAG 1,000 ML IV ONE (13:39)
[2023-08-01 13:43] LABS: Activated Partial Thrombo Time 32.6 seconds (26.0-38.0); INR 1.76 (0.83-1.13)
[2023-08-01 13:49] LABS: Albumin 3.9 g/dL (3.2-5.2); Calcium 8.9 mg/dL (8.6-10.3); Direct Bilirubin 0.2 mg/dL (0.03-0.18); Indirect Bilirubin 0.8 mg/dL (0.3-1.0); Potassium 5.7 mmol/L (3.5-5.0)
[2023-08-01 13:55] LABS: Albumin/Globulin Ratio 1.2 (1-3); Creatinine, Serum 5.85 mg/dL (0.67-1.17); Globulin 3.2 g/dL (2-4); HDL Cholesterol 29.6 mg/dL; Total Protein 7.1 g/dL (6.4-8.9); eGFR CKD-EPI 9.8 (>60)
[2023-08-01] MEDS ORDERED: CALCIUM GLUCONATE 1GM/50ML NS 1 GM/50 ML BAG IV ONE (14:49)
[2023-08-01] MEDS ORDERED: Dextrose 50% Syringe 50 ml 25 GM/50 ML SYRINGE IV PUSH ONE (14:51)
[2023-08-01 15:29] LABS: High Sensitivity Troponin 1 Hr 22 pg/mL (<20)
[2023-08-01 17:06] LABS: PCO2 Arterial 46 mmHg (35-45); PO2 Arterial 77 mmHg (80-100)
[2023-08-01 17:41] LABS: ABS Lymphocytes 0.5 10^3/uL (1.0-4.8); ABS Monocytes 0.8 10^3/uL (0.0-1.1); ABS Neutrophils 8.2 10^3/uL (1.5-7.6); Eosinophil % 0.5 %; Hematocrit 23.4 % (38-53); Hemoglobin 8.1 g/dL (13.2-16.3); Lymphocyte % 5.4 %; Mean Corpuscular Hemoglobin 32.4 pg (27-33); Mean Corpuscular Hgb Conc 34.4 g/dL (31-36); Mean Corpuscular Volume 94.3 fL (80-97); Mean Platelet Volume 6.9 fL (7.5-11.2); Platelet Count 220 10^3/uL (150-450); Red Blood Count 2.49 10^6/uL (4.06-5.63); Red Cell Distribution Width 14.6 % (12-17); White Blood Count 9.6 10^3/uL (3.6-10.2)
[2023-08-01 17:58] LABS: Urine Appearance Cloudy; Urine Bilirubin Negative (Negative); Urine Blood Negative (Negative); Urine Color Yellow; Urine Glucose 1+(50 mg/dL) (Negative); Urine Ketones Negative (Negative); Urine Nitrite Negative (Negative); Urine Protein Negative (Negative); Urine Specific Gravity 1.018 (1.002-1.030); Urine Urobilinogen Negative (Negative)
[2023-08-01 18:13] LABS: HDL Cholesterol 19.5 mg/dL
[2023-08-01] MEDS ORDERED: NS 0.9% 1000 ml BAG 1,000 ML IV SCH (21:00)
[2023-08-01 22:10] LABS: Calcium 8.7 mg/dL (8.6-10.3); Creatinine, Serum 5.87 mg/dL (0.67-1.17); Potassium 5.9 mmol/L (3.5-5.0); eGFR CKD-EPI 9.7 (>60)
[2023-08-02] MEDS ORDERED: SODIUM ZIRCONIUM CYCLOSILICATE 10 GM PACKET PO ONE (02:56)
[2023-08-02 07:10] LABS: ABS Eosinophils 0.1 10^3/uL (0.0-0.5); ABS Lymphocytes 0.3 10^3/uL (1.0-4.8); ABS Monocytes 0.6 10^3/uL (0.0-1.1); ABS Neutrophils 9.6 10^3/uL (1.5-7.6); Eosinophil % 0.6 %; Hematocrit 22.8 % (38-53); Hemoglobin 7.9 g/dL (13.2-16.3); Lymphocyte % 3.1 %; Mean Corpuscular Hemoglobin 32.5 pg (27-33); Mean Corpuscular Hgb Conc 34.7 g/dL (31-36); Mean Corpuscular Volume 93.8 fL (80-97); Mean Platelet Volume 6.7 fL (7.5-11.2); Platelet Count 216 10^3/uL (150-450); Red Blood Count 2.43 10^6/uL (4.06-5.63); Red Cell Distribution Width 14.7 % (12-17); White Blood Count 10.6 10^3/uL (3.6-10.2)
[2023-08-02 07:24] LABS: Calcium 8.2 mg/dL (8.6-10.3); Creatinine, Serum 5.88 mg/dL (0.67-1.17); Potassium 5.5 mmol/L (3.5-5.0); eGFR CKD-EPI 9.7 (>60)
[2023-08-02] MEDS ORDERED: NS 0.9% 1000 ml BAG 100 ML IV PRN (07:38)
[2023-08-02] MEDS ORDERED: NS 0.9% 1000 ml BAG 200 ML IV PRN (07:38)
[2023-08-02] MEDS ORDERED: Albumin Human 25% 25 GM/100 ML BTL IV PRN (07:38)
[2023-08-02] MEDS ORDERED: Sulfur Hexaflouride MICROSPHR 25 MG VIAL ONE (08:06)
[2023-08-02 12:08] LABS: Hepatitis B Surface Antigen Nonreactive (Nonreactive)
[2023-08-02 12:26] LABS: Hepatitis B Surface Ab Not Immune (Immune)
[2023-08-02] MEDS ORDERED: Heparin DRIP 25,000 UNITS BAG 25,000 UNITS/500 ML BAG IV SCH ×2 (13:15→14:30)
[2023-08-02 13:36] LABS: Activated Partial Thrombo Time 30.2 seconds (26.0-38.0); INR 1.83 (0.83-1.13)
[2023-08-02 13:44] LABS: ABS Lymphocytes 0.2 10^3/uL (1.0-4.8); ABS Monocytes 0.6 10^3/uL (0.0-1.1); ABS Neutrophils 10.6 10^3/uL (1.5-7.6); Eosinophil % 0.4 %; Hematocrit 21.9 % (38-53); Hemoglobin 7.5 g/dL (13.2-16.3); Lymphocyte % 1.6 %; Mean Corpuscular Hemoglobin 32.2 pg (27-33); Mean Corpuscular Hgb Conc 34.3 g/dL (31-36); Mean Corpuscular Volume 93.8 fL (80-97); Mean Platelet Volume 6.8 fL (7.5-11.2); Platelet Count 226 10^3/uL (150-450); Red Blood Count 2.34 10^6/uL (4.06-5.63); Red Cell Distribution Width 14.6 % (12-17); White Blood Count 11.5 10^3/uL (3.6-10.2)
[2023-08-02] MEDS ORDERED: Heparin 5000 UNITS/ML 1 mL VIAL IV SCH (14:00)
[2023-08-02 14:09] LABS: Creatinine, Serum 6.15 mg/dL (0.67-1.17); eGFR CKD-EPI 9.2 (>60)
[2023-08-02] MEDS: Heparin 1,000 UNIT/ML 10 ml (10,000 UNITS) CATHLAB/DIALYSIS DIALYSIS PRN ×3 (14:40→16:50)
[2023-08-02] MEDS ORDERED: Heparin 5000 UNITS/ML 1 mL VIAL IV PRN (15:00)
[2023-08-02 16:28] LABS: ABS Lymphocytes 0.3 10^3/uL (1.0-4.8); ABS Monocytes 0.7 10^3/uL (0.0-1.1); ABS Neutrophils 12.9 10^3/uL (1.5-7.6); Eosinophil % 0.3 %; Hematocrit 24.9 % (38-53); Hemoglobin 8.5 g/dL (13.2-16.3); Mean Corpuscular Hemoglobin 32.2 pg (27-33); Mean Corpuscular Hgb Conc 34.1 g/dL (31-36); Mean Corpuscular Volume 94.4 fL (80-97); Mean Platelet Volume 6.7 fL (7.5-11.2); Platelet Count 245 10^3/uL (150-450); Red Blood Count 2.64 10^6/uL (4.06-5.63); Red Cell Distribution Width 14.4 % (12-17)
[2023-08-02 16:51] LABS: Creatinine, Serum 1.05 mg/dL (0.67-1.17); eGFR CKD-EPI 76.8 (>60)
[2023-08-02] MEDS: Heparin DRIP 25,000 UNITS BAG 25,000 UNITS/500 ML BAG IV SCH (18:24)
[2023-08-03 06:56] LABS: ABS Basophils 0.1 10^3/uL (0.0-0.1); ABS Eosinophils 0.1 10^3/uL (0.0-0.5); ABS Lymphocytes 0.4 10^3/uL (1.0-4.8); ABS Monocytes 0.4 10^3/uL (0.0-1.1); ABS Neutrophils 5.2 10^3/uL (1.5-7.6); Eosinophil % 2.2 %; Hematocrit 20.7 % (38-53); Hemoglobin 7.2 g/dL (13.2-16.3); Lymphocyte % 6.2 %; Mean Corpuscular Hemoglobin 32.7 pg (27-33); Mean Corpuscular Hgb Conc 34.6 g/dL (31-36); Mean Corpuscular Volume 94.7 fL (80-97); Mean Platelet Volume 6.8 fL (7.5-11.2); Platelet Count 202 10^3/uL (150-450); Red Blood Count 2.19 10^6/uL (4.06-5.63); Red Cell Distribution Width 14.8 % (12-17); White Blood Count 6.2 10^3/uL (3.6-10.2)
[2023-08-03 07:58] LABS: Activated Partial Thrombo Time 44.4 seconds (26.0-38.0); INR 1.79 (0.83-1.13)
[2023-08-03] MEDS: Heparin 1,000 UNIT/ML 10 ml (10,000 UNITS) CATHLAB/DIALYSIS DIALYSIS PRN ×4 (09:15→12:44)
[2023-08-03] MEDS: Heparin DRIP 25,000 UNITS BAG 25,000 UNITS/500 ML BAG IV SCH ×2 (09:57→22:15)
[2023-08-03 10:11] LABS: Calcium 7.9 mg/dL (8.6-10.3); Creatinine, Serum 5.85 mg/dL (0.67-1.17); Potassium 4.7 mmol/L (3.5-5.0); eGFR CKD-EPI 9.8 (>60)
[2023-08-04] MEDS: Heparin 1,000 UNIT/ML 10 ml (10,000 UNITS) CATHLAB/DIALYSIS DIALYSIS PRN (09:48)
[2023-08-04] MEDS: Heparin DRIP 25,000 UNITS BAG 25,000 UNITS/500 ML BAG IV SCH ×2 (11:20→22:40)
[2023-08-04 12:32] LABS: INR 2.43 (0.83-1.13)
[2023-08-04 12:40] LABS: Calcium 8.3 mg/dL (8.6-10.3); Potassium 3.7 mmol/L (3.5-5.0)
[2023-08-04 12:46] LABS: Creatinine, Serum 2.23 mg/dL (0.67-1.17); eGFR CKD-EPI 31.1 (>60)
[2023-08-04 12:49] LABS: Urine Osmo 322 mOsm/kg (150-1150)
[2023-08-04 12:59] LABS: Osmolality Serum 290 mOsm/kg (275-295)
[2023-08-04 15:19] LABS: Hematocrit 26.6 % (38-53); Hemoglobin 9.3 g/dL (13.2-16.3); Mean Corpuscular Hemoglobin 32.3 pg (27-33); Mean Corpuscular Hgb Conc 35.1 g/dL (31-36); Mean Corpuscular Volume 91.9 fL (80-97); Mean Platelet Volume 6.4 fL (7.5-11.2); Platelet Count 247 10^3/uL (150-450); Red Blood Count 2.89 10^6/uL (4.06-5.63); White Blood Count 5.7 10^3/uL (3.6-10.2)
[2023-08-05 04:39] LABS: ABS Eosinophils 0.2 10^3/uL (0.0-0.5); ABS Lymphocytes 0.5 10^3/uL (1.0-4.8); ABS Monocytes 0.4 10^3/uL (0.0-1.1); Eosinophil % 3.7 %; Hematocrit 27.8 % (38-53); Hemoglobin 9.5 g/dL (13.2-16.3); Lymphocyte % 8.8 %; Mean Corpuscular Hemoglobin 31.5 pg (27-33); Mean Corpuscular Hgb Conc 34.3 g/dL (31-36); Mean Platelet Volume 6.4 fL (7.5-11.2); Platelet Count 250 10^3/uL (150-450); Red Blood Count 3.03 10^6/uL (4.06-5.63); Red Cell Distribution Width 14.8 % (12-17); White Blood Count 6.3 10^3/uL (3.6-10.2)
[2023-08-05 04:50] LABS: Activated Partial Thrombo Time 82.5 seconds (26.0-38.0); INR 2.44 (0.83-1.13)
[2023-08-05 05:05] LABS: Calcium 8.4 mg/dL (8.6-10.3); Creatinine, Serum 2.43 mg/dL (0.67-1.17); eGFR CKD-EPI 28.1 (>60)
[2023-08-05] MEDS: Bumetanide IV 0.25 MG/ML 4 ml VIAL (1 mg) IV SLOW PU SCH (20:43)
[2023-08-06 04:31] LABS: ABS Basophils 0.1 10^3/uL (0.0-0.1); ABS Eosinophils 0.2 10^3/uL (0.0-0.5); ABS Lymphocytes 0.4 10^3/uL (1.0-4.8); ABS Monocytes 0.5 10^3/uL (0.0-1.1); ABS Neutrophils 5.3 10^3/uL (1.5-7.6); Eosinophil % 2.8 %; Hemoglobin 10.2 g/dL (13.2-16.3); Lymphocyte % 6.9 %; Mean Corpuscular Volume 91.4 fL (80-97); Mean Platelet Volume 6.4 fL (7.5-11.2); Nucleated Red Blood Cells % 0.1 %/100WBC (0.0-0.8); Platelet Count 249 10^3/uL (150-450); Red Blood Count 3.17 10^6/uL (4.06-5.63); Red Cell Distribution Width 14.2 % (12-17); White Blood Count 6.4 10^3/uL (3.6-10.2)
[2023-08-06 04:37] LABS: INR 2.18 (0.83-1.13)
[2023-08-06 04:46] LABS: Calcium 8.7 mg/dL (8.6-10.3); Magnesium 1.7 mg/dL (1.9-2.7); Potassium 4.1 mmol/L (3.5-5.0)
[2023-08-06 04:52] LABS: Creatinine, Serum 2.45 mg/dL (0.67-1.17); Phosphorus 3.4 mg/dL (2.5-5.0); eGFR CKD-EPI 27.8 (>60)
[2023-08-06] MEDS ORDERED: Magnesium Sulfate 2 gm BAG 2 GM/50 ML BAG IVPB ONE (07:55)
[2023-08-06] MEDS ORDERED: Heparin DRIP 25,000 UNITS BAG 25,000 UNITS/500 ML BAG IV SCH (10:00)
[2023-08-06] MEDS: Bumetanide IV 0.25 MG/ML 4 ml VIAL (1 mg) IV SLOW PU SCH ×2 (10:15→19:48)
[2023-08-06 11:07] LABS: ABS Basophils 0.1 10^3/uL (0.0-0.1); ABS Eosinophils 0.2 10^3/uL (0.0-0.5); ABS Lymphocytes 0.4 10^3/uL (1.0-4.8); ABS Monocytes 0.4 10^3/uL (0.0-1.1); ABS Neutrophils 4.9 10^3/uL (1.5-7.6); ABS Nucleated RBC 0.01 10^3/ul; Eosinophil % 2.7 %; Hemoglobin 10.8 g/dL (13.2-16.3); Lymphocyte % 7.1 %; Mean Corpuscular Hgb Conc 34.8 g/dL (31-36); Mean Corpuscular Volume 91.9 fL (80-97); Mean Platelet Volume 6.1 fL (7.5-11.2); Nucleated Red Blood Cells % 0.1 %/100WBC (0.0-0.8); Platelet Count 263 10^3/uL (150-450); Red Blood Count 3.38 10^6/uL (4.06-5.63); Red Cell Distribution Width 14.6 % (12-17)
[2023-08-06 11:24] LABS: Creatinine, Serum 2.45 mg/dL (0.67-1.17); eGFR CKD-EPI 27.8 (>60)
[2023-08-06] MEDS: Heparin DRIP 25,000 UNITS BAG 25,000 UNITS/500 ML BAG IV SCH (13:23)
[2023-08-07] MEDS: Heparin DRIP 25,000 UNITS BAG 25,000 UNITS/500 ML BAG IV SCH ×2 (01:01→13:40)
[2023-08-07 04:18] LABS: ABS Basophils 0.1 10^3/uL (0.0-0.1); ABS Eosinophils 0.2 10^3/uL (0.0-0.5); ABS Lymphocytes 0.6 10^3/uL (1.0-4.8); ABS Monocytes 0.7 10^3/uL (0.0-1.1); ABS Neutrophils 7.5 10^3/uL (1.5-7.6); ABS Nucleated RBC 0.01 10^3/ul; Eosinophil % 2.6 %; Hematocrit 32.2 % (38-53); Hemoglobin 11.1 g/dL (13.2-16.3); Lymphocyte % 6.4 %; Mean Corpuscular Hemoglobin 31.6 pg (27-33); Mean Corpuscular Hgb Conc 34.5 g/dL (31-36); Mean Corpuscular Volume 91.7 fL (80-97); Mean Platelet Volume 6.4 fL (7.5-11.2); Nucleated Red Blood Cells % 0.1 %/100WBC (0.0-0.8); Platelet Count 261 10^3/uL (150-450); Red Blood Count 3.51 10^6/uL (4.06-5.63); Red Cell Distribution Width 14.3 % (12-17); White Blood Count 9.1 10^3/uL (3.6-10.2)
[2023-08-07 04:37] LABS: Albumin 3.8 g/dL (3.2-5.2); Albumin/Globulin Ratio 1.2 (1-3); Calcium 8.9 mg/dL (8.6-10.3); Creatinine, Serum 2.61 mg/dL (0.67-1.17); Globulin 3.2 g/dL (2-4); Magnesium 1.9 mg/dL (1.9-2.7); Phosphorus 4.1 mg/dL (2.5-5.0); Potassium 3.8 mmol/L (3.5-5.0); eGFR CKD-EPI 25.8 (>60)
[2023-08-07] MEDS: Bumetanide IV 0.25 MG/ML 4 ml VIAL (1 mg) IV SLOW PU SCH ×2 (09:47→19:54)
[2023-08-07] MEDS ORDERED: Clindamycin 600 MG/D5W BAG 600 MG/50 ML BAG IV ONE (11:00)
[2023-08-07] MEDS: Warfarin DAILY REMINDER **NOTE FOLLOW UP SCH (17:47)
[2023-08-08] MEDS: Heparin DRIP 25,000 UNITS BAG 25,000 UNITS/500 ML BAG IV SCH ×2 (02:36→15:34)
[2023-08-08 07:48] LABS: ABS Basophils 0.1 10^3/uL (0.0-0.1); ABS Eosinophils 0.2 10^3/uL (0.0-0.5); ABS Lymphocytes 0.6 10^3/uL (1.0-4.8); ABS Monocytes 0.6 10^3/uL (0.0-1.1); ABS Neutrophils 6.5 10^3/uL (1.5-7.6); Eosinophil % 2.9 %; Hematocrit 32.6 % (38-53); Hemoglobin 11.2 g/dL (13.2-16.3); Lymphocyte % 7.2 %; Mean Corpuscular Hgb Conc 34.4 g/dL (31-36); Mean Corpuscular Volume 90.1 fL (80-97); Mean Platelet Volume 6.5 fL (7.5-11.2); Nucleated Red Blood Cells % 0.1 %/100WBC (0.0-0.8); Platelet Count 258 10^3/uL (150-450); Red Blood Count 3.62 10^6/uL (4.06-5.63); Red Cell Distribution Width 14.3 % (12-17)
[2023-08-08 08:14] LABS: Calcium 8.9 mg/dL (8.6-10.3); Creatinine, Serum 2.96 mg/dL (0.67-1.17); Magnesium 1.9 mg/dL (1.9-2.7); Phosphorus 6.1 mg/dL (2.5-5.0); eGFR CKD-EPI 22.2 (>60)
[2023-08-08 08:22] LABS: INR 1.96 (0.83-1.13)
[2023-08-08 08:25] LABS: Activated Partial Thrombo Time 113.9 seconds (26.0-38.0)
[2023-08-08] MEDS ORDERED: Potassium Chloride LIQUID 20 MEQ/15 ML LIQUID PO ONE (08:53)
[2023-08-08] MEDS: Potassium Chloride LIQUID 20 MEQ/15 ML LIQUID PO SCH ×2 (10:44→22:04)
[2023-08-08] MEDS: Bumetanide IV 0.25 MG/ML 4 ml VIAL (1 mg) IV SLOW PU SCH (10:48)
[2023-08-08 11:22] LABS: Uric Acid 8.7 mg/dL (4.4-7.6)
[2023-08-08] MEDS: Warfarin DAILY REMINDER **NOTE FOLLOW UP SCH (18:05)
[2023-08-09] MEDS: Heparin DRIP 25,000 UNITS BAG 25,000 UNITS/500 ML BAG IV SCH ×2 (05:43→18:37)
[2023-08-09 06:27] LABS: ABS Basophils 0.1 10^3/uL (0.0-0.1); ABS Eosinophils 0.2 10^3/uL (0.0-0.5); ABS Lymphocytes 0.7 10^3/uL (1.0-4.8); ABS Monocytes 0.5 10^3/uL (0.0-1.1); ABS Neutrophils 6.6 10^3/uL (1.5-7.6); Eosinophil % 2.9 %; Hematocrit 29.7 % (38-53); Hemoglobin 10.6 g/dL (13.2-16.3); Lymphocyte % 8.7 %; Mean Corpuscular Hemoglobin 32.1 pg (27-33); Mean Corpuscular Hgb Conc 35.6 g/dL (31-36); Mean Corpuscular Volume 90.1 fL (80-97); Mean Platelet Volume 6.7 fL (7.5-11.2); Platelet Count 245 10^3/uL (150-450); Red Cell Distribution Width 14.3 % (12-17); White Blood Count 8.1 10^3/uL (3.6-10.2)
[2023-08-09 06:52] LABS: Calcium 8.7 mg/dL (8.6-10.3); Creatinine, Serum 2.5 mg/dL (0.67-1.17); Magnesium 1.7 mg/dL (1.9-2.7); Potassium 3.3 mmol/L (3.5-5.0); eGFR CKD-EPI 27.1 (>60)
[2023-08-09] MEDS ORDERED: Potassium Chlor 20 meq TAB.ER PO ONE (08:01)
[2023-08-09] MEDS ORDERED: Magnesium Sulfate 2 gm BAG 2 GM/50 ML BAG IVPB ONE (08:30)
[2023-08-09] MEDS ORDERED: Potassium Chloride LIQUID 20 MEQ/15 ML LIQUID PO ONE (08:45)
[2023-08-09] MEDS ORDERED: Potassium Chlor 10 meq TAB PO SCH (09:00)
[2023-08-09 10:28] LABS: INR 1.92 (0.83-1.13)
[2023-08-09] MEDS ORDERED: Potassium Chlor 10 meq TAB PO ONE (12:00)
[2023-08-09] MEDS: CMCS: Febuxostat 40 mg TAB (NF) PO SCH (13:55)
[2023-08-09] MEDS: Warfarin DAILY REMINDER **NOTE FOLLOW UP SCH (18:36)
[2023-08-09 21:57] LABS: C Reactive Protein 103.44 mg/L (<8.01)
[2023-08-10 06:19] LABS: ABS Basophils 0.1 10^3/uL (0.0-0.1); ABS Eosinophils 0.2 10^3/uL (0.0-0.5); ABS Lymphocytes 0.8 10^3/uL (1.0-4.8); ABS Monocytes 0.5 10^3/uL (0.0-1.1); ABS Neutrophils 6.3 10^3/uL (1.5-7.6); Eosinophil % 2.2 %; Hematocrit 32.3 % (38-53); Lymphocyte % 9.7 %; Mean Corpuscular Hemoglobin 30.9 pg (27-33); Mean Corpuscular Hgb Conc 34.2 g/dL (31-36); Mean Corpuscular Volume 90.4 fL (80-97); Mean Platelet Volume 6.6 fL (7.5-11.2); Nucleated Red Blood Cells % 0.1 %/100WBC (0.0-0.8); Platelet Count 263 10^3/uL (150-450); Red Blood Count 3.57 10^6/uL (4.06-5.63); Red Cell Distribution Width 14.3 % (12-17); White Blood Count 7.8 10^3/uL (3.6-10.2)
[2023-08-10 06:28] LABS: Activated Partial Thrombo Time 88.8 seconds (26.0-38.0); INR 1.83 (0.83-1.13)
[2023-08-10 06:45] LABS: Calcium 9.1 mg/dL (8.6-10.3); Creatinine, Serum 2.61 mg/dL (0.67-1.17); Magnesium 2.3 mg/dL (1.9-2.7); Phosphorus 5.4 mg/dL (2.5-5.0); Potassium 3.5 mmol/L (3.5-5.0); eGFR CKD-EPI 25.8 (>60)
[2023-08-10] MEDS: Heparin DRIP 25,000 UNITS BAG 25,000 UNITS/500 ML BAG IV SCH (10:25)
[2023-08-10] MEDS: CMCS: Febuxostat 40 mg TAB (NF) PO SCH (10:31)
[2023-08-10] MEDS ORDERED: Amoxicillin/Clavul 500/125 TAB (Augmentin 500 mg tab) PO SCH (11:00)
[2023-08-10] MEDS: Warfarin DAILY REMINDER **NOTE FOLLOW UP SCH (16:54)
[2023-08-10] MEDS: Amoxicillin/Clavul 500/125 TAB (Augmentin 500 mg tab) PO SCH (22:26)
[2023-08-11] MEDS: Heparin DRIP 25,000 UNITS BAG 25,000 UNITS/500 ML BAG IV SCH ×2 (01:13→16:26)
[2023-08-11 06:16] LABS: ABS Basophils 0.1 10^3/uL (0.0-0.1); ABS Eosinophils 0.2 10^3/uL (0.0-0.5); ABS Lymphocytes 0.8 10^3/uL (1.0-4.8); ABS Monocytes 0.5 10^3/uL (0.0-1.1); ABS Neutrophils 5.7 10^3/uL (1.5-7.6); ABS Nucleated RBC 0.01 10^3/ul; Eosinophil % 2.3 %; Hematocrit 31.2 % (38-53); Hemoglobin 10.9 g/dL (13.2-16.3); Lymphocyte % 11.3 %; Mean Corpuscular Hemoglobin 31.4 pg (27-33); Mean Corpuscular Hgb Conc 35.1 g/dL (31-36); Mean Corpuscular Volume 89.5 fL (80-97); Mean Platelet Volume 6.6 fL (7.5-11.2); Nucleated Red Blood Cells % 0.1 %/100WBC (0.0-0.8); Platelet Count 276 10^3/uL (150-450); Red Blood Count 3.48 10^6/uL (4.06-5.63); Red Cell Distribution Width 14.2 % (12-17); White Blood Count 7.3 10^3/uL (3.6-10.2)
[2023-08-11 06:20] LABS: Activated Partial Thrombo Time 98.7 seconds (26.0-38.0); INR 1.96 (0.83-1.13)
[2023-08-11 06:39] LABS: Calcium 8.8 mg/dL (8.6-10.3); Creatinine, Serum 2.5 mg/dL (0.67-1.17); Phosphorus 5.3 mg/dL (2.5-5.0); Potassium 3.6 mmol/L (3.5-5.0); eGFR CKD-EPI 27.1 (>60)
[2023-08-11] MEDS: Amoxicillin/Clavul 500/125 TAB (Augmentin 500 mg tab) PO SCH ×2 (09:06→21:28)
[2023-08-11] MEDS: CMCS: Febuxostat 40 mg TAB (NF) PO SCH (09:07)
[2023-08-11] MEDS: Warfarin DAILY REMINDER **NOTE FOLLOW UP SCH (16:21)
[2023-08-12 06:20] LABS: ABS Basophils 0.1 10^3/uL (0.0-0.1); ABS Eosinophils 0.1 10^3/uL (0.0-0.5); ABS Lymphocytes 0.7 10^3/uL (1.0-4.8); ABS Monocytes 0.5 10^3/uL (0.0-1.1); ABS Neutrophils 4.9 10^3/uL (1.5-7.6); Eosinophil % 1.8 %; Hematocrit 31.8 % (38-53); Hemoglobin 10.9 g/dL (13.2-16.3); Lymphocyte % 10.6 %; Mean Corpuscular Hemoglobin 31.2 pg (27-33); Mean Corpuscular Hgb Conc 34.5 g/dL (31-36); Mean Corpuscular Volume 90.6 fL (80-97); Mean Platelet Volume 6.7 fL (7.5-11.2); Nucleated Red Blood Cells % 0.1 %/100WBC (0.0-0.8); Platelet Count 255 10^3/uL (150-450); Red Cell Distribution Width 14.2 % (12-17); White Blood Count 6.3 10^3/uL (3.6-10.2)
[2023-08-12 06:23] LABS: INR 2.17 (0.83-1.13)
[2023-08-12 06:48] LABS: Calcium 8.9 mg/dL (8.6-10.3); Creatinine, Serum 2.67 mg/dL (0.67-1.17); Magnesium 1.8 mg/dL (1.9-2.7); Phosphorus 4.7 mg/dL (2.5-5.0); Potassium 3.2 mmol/L (3.5-5.0); eGFR CKD-EPI 25.1 (>60)
[2023-08-12] MEDS ORDERED: Potassium Chlor 20 meq TAB.ER PO ONE ×2 (08:13→10:50)
[2023-08-12] MEDS ORDERED: KCL 20 MEQ/100 ML IVPREMIX 20 MEQ/100 ML BAG IV SCH (09:00)
[2023-08-12] MEDS: Amoxicillin/Clavul 500/125 TAB (Augmentin 500 mg tab) PO SCH ×2 (09:57→20:53)
[2023-08-12] MEDS: CMCS: Febuxostat 40 mg TAB (NF) PO SCH (09:57)
[2023-08-12] MEDS: Heparin DRIP 25,000 UNITS BAG 25,000 UNITS/500 ML BAG IV SCH (10:09)
[2023-08-12] MEDS: Warfarin DAILY REMINDER **NOTE FOLLOW UP SCH (19:32)
[2023-08-13] MEDS: Heparin DRIP 25,000 UNITS BAG 25,000 UNITS/500 ML BAG IV SCH (04:25)
[2023-08-13] MEDS: CMCS: Febuxostat 40 mg TAB (NF) PO SCH (09:15)
[2023-08-13] MEDS: Amoxicillin/Clavul 500/125 TAB (Augmentin 500 mg tab) PO SCH ×2 (09:15→23:57)
[2023-08-13 09:56] LABS: ABS Basophils 0.1 10^3/uL (0.0-0.1); ABS Eosinophils 0.1 10^3/uL (0.0-0.5); ABS Lymphocytes 0.6 10^3/uL (1.0-4.8); ABS Monocytes 0.5 10^3/uL (0.0-1.1); ABS Neutrophils 4.5 10^3/uL (1.5-7.6); Hematocrit 32.5 % (38-53); Hemoglobin 11.1 g/dL (13.2-16.3); Lymphocyte % 10.5 %; Mean Corpuscular Hemoglobin 30.8 pg (27-33); Mean Corpuscular Hgb Conc 34.2 g/dL (31-36); Mean Corpuscular Volume 89.9 fL (80-97); Mean Platelet Volume 6.5 fL (7.5-11.2); Platelet Count 265 10^3/uL (150-450); Red Blood Count 3.61 10^6/uL (4.06-5.63); Red Cell Distribution Width 14.3 % (12-17); White Blood Count 5.7 10^3/uL (3.6-10.2)
[2023-08-13 10:05] LABS: INR 2.27 (0.83-1.13)
[2023-08-13 10:24] LABS: Calcium 9.1 mg/dL (8.6-10.3); Creatinine, Serum 2.82 mg/dL (0.67-1.17); Magnesium 1.8 mg/dL (1.9-2.7); Potassium 3.6 mmol/L (3.5-5.0); eGFR CKD-EPI 23.5 (>60)
[2023-08-13] MEDS ORDERED: Magnesium Sulfate 2 gm BAG 2 GM/50 ML BAG IVPB ONE (10:29)
[2023-08-14] MEDS: Heparin DRIP 25,000 UNITS BAG 25,000 UNITS/500 ML BAG IV SCH ×2 (00:17→18:25)
[2023-08-14 08:39] LABS: ABS Basophils 0.1 10^3/uL (0.0-0.1); ABS Eosinophils 0.1 10^3/uL (0.0-0.5); ABS Lymphocytes 0.7 10^3/uL (1.0-4.8); ABS Monocytes 0.6 10^3/uL (0.0-1.1); ABS Neutrophils 4.7 10^3/uL (1.5-7.6); Eosinophil % 1.2 %; Hematocrit 33.5 % (38-53); Hemoglobin 11.7 g/dL (13.2-16.3); Lymphocyte % 11.3 %; Mean Corpuscular Hemoglobin 31.1 pg (27-33); Mean Corpuscular Volume 88.9 fL (80-97); Mean Platelet Volume 6.3 fL (7.5-11.2); Platelet Count 285 10^3/uL (150-450); Red Blood Count 3.77 10^6/uL (4.06-5.63); Red Cell Distribution Width 14.1 % (12-17); White Blood Count 6.1 10^3/uL (3.6-10.2)
[2023-08-14 08:51] LABS: Activated Partial Thrombo Time 80.4 seconds (26.0-38.0); INR 2.44 (0.83-1.13)
[2023-08-14] MEDS: Warfarin DAILY REMINDER **NOTE FOLLOW UP SCH ×2 (09:00→16:46)
[2023-08-14 09:06] LABS: Calcium 9.7 mg/dL (8.6-10.3); Creatinine, Serum 2.77 mg/dL (0.67-1.17); Magnesium 2.3 mg/dL (1.9-2.7); Phosphorus 4.7 mg/dL (2.5-5.0); Potassium 3.7 mmol/L (3.5-5.0)
[2023-08-14] MEDS: CMCS: Febuxostat 40 mg TAB (NF) PO SCH (09:11)
[2023-08-14] MEDS: Amoxicillin/Clavul 500/125 TAB (Augmentin 500 mg tab) PO SCH ×2 (09:11→20:34)
[2023-08-15] MEDS: CMCS: Febuxostat 40 mg TAB (NF) PO SCH (08:52)
[2023-08-15] MEDS: Amoxicillin/Clavul 500/125 TAB (Augmentin 500 mg tab) PO SCH ×2 (08:52→21:26)
[2023-08-15 09:54] LABS: Rapid COVID-19 Molecular Undetected (Undetected)
[2023-08-15 11:20] LABS: ABS Basophils 0.1 10^3/uL (0.0-0.1); ABS Eosinophils 0.1 10^3/uL (0.0-0.5); ABS Lymphocytes 0.8 10^3/uL (1.0-4.8); ABS Monocytes 0.6 10^3/uL (0.0-1.1); ABS Neutrophils 6.1 10^3/uL (1.5-7.6); ABS Nucleated RBC 0.01 10^3/ul; Eosinophil % 1.1 %; Hematocrit 35.2 % (38-53); Mean Corpuscular Hemoglobin 30.6 pg (27-33); Mean Platelet Volume 6.5 fL (7.5-11.2); Nucleated Red Blood Cells % 0.1 %/100WBC (0.0-0.8); Platelet Count 288 10^3/uL (150-450); Red Blood Count 3.91 10^6/uL (4.06-5.63); Red Cell Distribution Width 14.5 % (12-17); White Blood Count 7.6 10^3/uL (3.6-10.2)
[2023-08-15 11:28] LABS: Activated Partial Thrombo Time 86.5 seconds (26.0-38.0); INR 2.33 (0.83-1.13)
[2023-08-15] MEDS ORDERED: Warfarin per PHARMACY **NOTE FOLLOW UP SCH (12:00)
[2023-08-15 12:39] LABS: Calcium 9.8 mg/dL (8.6-10.3); Creatinine, Serum 2.72 mg/dL (0.67-1.17); Magnesium 1.9 mg/dL (1.9-2.7); Phosphorus 4.9 mg/dL (2.5-5.0); Potassium 3.6 mmol/L (3.5-5.0); eGFR CKD-EPI 24.5 (>60)
[2023-08-15] MEDS: Warfarin DAILY REMINDER **NOTE FOLLOW UP SCH (16:51)
[2023-08-16 07:03] LABS: INR 2.52 (0.83-1.13)
[2023-08-16 07:14] LABS: Calcium 9.4 mg/dL (8.6-10.3); Creatinine, Serum 2.59 mg/dL (0.67-1.17); Magnesium 1.8 mg/dL (1.9-2.7); Phosphorus 4.4 mg/dL (2.5-5.0); Potassium 3.3 mmol/L (3.5-5.0)
[2023-08-16] MEDS ORDERED: Potassium Chlor 20 meq TAB.ER PO ONE ×2 (07:24)
[2023-08-16] MEDS ORDERED: Magnesium Sulfate 2 gm BAG 2 GM/50 ML BAG IVPB STA (07:25)
[2023-08-16 07:36] LABS: ABS Basophils 0.1 10^3/uL (0.0-0.1); ABS Eosinophils 0.1 10^3/uL (0.0-0.5); ABS Lymphocytes 1.1 10^3/uL (1.0-4.8); ABS Monocytes 0.6 10^3/uL (0.0-1.1); ABS Nucleated RBC 0.01 10^3/ul; Eosinophil % 1.4 %; Hematocrit 33.4 % (38-53); Hemoglobin 11.4 g/dL (13.2-16.3); Lymphocyte % 13.8 %; Mean Corpuscular Hemoglobin 30.5 pg (27-33); Mean Corpuscular Hgb Conc 34.2 g/dL (31-36); Mean Corpuscular Volume 89.2 fL (80-97); Mean Platelet Volume 6.6 fL (7.5-11.2); Nucleated Red Blood Cells % 0.1 %/100WBC (0.0-0.8); Platelet Count 302 10^3/uL (150-450); Red Blood Count 3.74 10^6/uL (4.06-5.63); Red Cell Distribution Width 14.5 % (12-17); White Blood Count 7.8 10^3/uL (3.6-10.2)
[2023-08-16] MEDS: CMCS: Febuxostat 40 mg TAB (NF) PO SCH (09:18)
[2023-08-16] MEDS: Amoxicillin/Clavul 500/125 TAB (Augmentin 500 mg tab) PO SCH (09:19)
[2023-08-16 10:02] LABS: Rapid COVID-19 Molecular Undetected (Undetected)
[2023-08-16 12:49] VITALS: BP 156/55
== END 2023-08-16 14:55 | DRG 64 ==
LOC: ED 13:15 → EDHOLD 13:15 → MEDTELE 19:38 → SUATTDRO 08-02 10:43
PROVIDERS: ADMIT Internal Medicine; ATTEND Internal Medicine

== ENCOUNTER 2023-08-30 11:52 | Inpatient (IN) ==
[2023-08-30 13:34] LABS: ABS Basophils 0.1 10^3/uL (0.0-0.1); ABS Lymphocytes 0.6 10^3/uL (1.0-4.8); ABS Monocytes 0.5 10^3/uL (0.0-1.1); ABS Nucleated RBC 0.01 10^3/ul; Eosinophil % 0.8 %; Hematocrit 26.3 % (38-53); Hemoglobin 8.9 g/dL (13.2-16.3); Lymphocyte % 10.3 %; Mean Corpuscular Hemoglobin 31.3 pg (27-33); Mean Corpuscular Hgb Conc 33.9 g/dL (31-36); Mean Corpuscular Volume 92.3 fL (80-97); Mean Platelet Volume 7.2 fL (7.5-11.2); Nucleated Red Blood Cells % 0.1 %/100WBC (0.0-0.8); Platelet Count 221 10^3/uL (150-450); Red Blood Count 2.86 10^6/uL (4.06-5.63); Red Cell Distribution Width 15.4 % (12-17); White Blood Count 6.2 10^3/uL (3.6-10.2)
[2023-08-30 13:54] LABS: Albumin 3.9 g/dL (3.2-5.2); Albumin/Globulin Ratio 1.3 (1-3); Calcium 9.5 mg/dL (8.6-10.3); Creatinine, Serum 2.55 mg/dL (0.67-1.17); Globulin 3.1 g/dL (2-4); Magnesium 2.4 mg/dL (1.9-2.7); Potassium 3.3 mmol/L (3.5-5.0); Total Bilirubin 1.2 mg/dL (0.2-1.0); eGFR CKD-EPI 26.5 (>60)
[2023-08-30 13:56] LABS: Activated Partial Thrombo Time 30.4 seconds (26.0-38.0)
[2023-08-30 13:57] LABS: INR 1.66 (0.83-1.13)
[2023-08-30] MEDS ORDERED: Furosemide 40 mg/4 ml IV VIAL IV SLOW PU ONE (14:32)
[2023-08-30 14:59] LABS: High Sensitivity Troponin 1 Hr 55 pg/mL (<20)
[2023-08-30 15:01] LABS: PCO2 Arterial 49 mmHg (35-45); PO2 Arterial 68 mmHg (80-100)
[2023-08-30] MEDS ORDERED: Potassium Chlor 20 meq TAB.ER PO ONE (17:19)
[2023-08-30] MEDS ORDERED: Enoxaparin 100 MG/ML SYR SUBCUT SCH (18:00)
[2023-08-30] MEDS ORDERED: Warfarin per PHARMACY **NOTE FOLLOW UP SCH (18:00)
[2023-08-30] MEDS: Bumetanide IV 0.25 MG/ML 4 ml VIAL (1 mg) IV SLOW PU SCH (20:36)
[2023-08-30] MEDS ORDERED: Amoxicillin/Clavul 500/125 TAB (Augmentin 500 mg tab) PO SCH (21:00)
[2023-08-30] MEDS ORDERED: cefTRIAXone 1 gm/50 mL D5W 1 GM/50 ML BAG IV SCH (22:00)
[2023-08-30] MEDS: Pantoprazole VIAL 40 MG VIAL IV SCH (23:00)
[2023-08-30] MEDS: Enoxaparin 100 MG/ML SYR SUBCUT SCH (23:00)
[2023-08-30] MEDS: KCL 20 MEQ/100 ML IVPREMIX 20 MEQ/100 ML BAG IV SCH (23:27)
[2023-08-31] MEDS: KCL 20 MEQ/100 ML IVPREMIX 20 MEQ/100 ML BAG IV SCH ×4 (00:48→10:19)
[2023-08-31] MEDS: Bacitracin OINTMENT TUBE TOPICAL SCH ×3 (02:21→22:44)
[2023-08-31 06:42] LABS: ABS Lymphocytes 0.5 10^3/uL (1.0-4.8); ABS Monocytes 0.3 10^3/uL (0.0-1.1); ABS Neutrophils 3.8 10^3/uL (1.5-7.6); Hematocrit 26.1 % (38-53); Lymphocyte % 10.1 %; Mean Corpuscular Hemoglobin 31.8 pg (27-33); Mean Corpuscular Hgb Conc 34.6 g/dL (31-36); Mean Corpuscular Volume 91.7 fL (80-97); Nucleated Red Blood Cells % 0.1 %/100WBC (0.0-0.8); Platelet Count 221 10^3/uL (150-450); Red Blood Count 2.85 10^6/uL (4.06-5.63); Red Cell Distribution Width 15.2 % (12-17); White Blood Count 4.6 10^3/uL (3.6-10.2)
[2023-08-31 07:03] LABS: INR 1.73 (0.83-1.13)
[2023-08-31 07:14] LABS: Calcium 8.7 mg/dL (8.6-10.3); Creatinine, Serum 2.57 mg/dL (0.67-1.17); Magnesium 2.2 mg/dL (1.9-2.7); Potassium 3.2 mmol/L (3.5-5.0); eGFR CKD-EPI 26.2 (>60)
[2023-08-31] MEDS ORDERED: Sulfur Hexaflouride MICROSPHR 25 MG VIAL ONE (09:44)
[2023-08-31] MEDS: Amoxicillin/Clavul 500/125 TAB (Augmentin 500 mg tab) PO SCH ×2 (10:16→22:39)
[2023-08-31] MEDS: Enoxaparin 100 MG/ML SYR SUBCUT SCH ×2 (10:17→22:43)
[2023-08-31] MEDS: Bumetanide IV 0.25 MG/ML 4 ml VIAL (1 mg) IV SLOW PU SCH ×2 (10:18→22:40)
[2023-08-31] MEDS: Lidocaine PATCH 5% PATCH TRANSDERM SCH (10:20)
[2023-08-31] MEDS: Nystatin TOP POWDER 15 GM BTL TOPICAL SCH ×3 (10:25→22:43)
[2023-08-31] MEDS: Warfarin DAILY REMINDER **NOTE FOLLOW UP SCH (17:38)
[2023-08-31] MEDS: Pantoprazole VIAL 40 MG VIAL IV SCH (22:40)
[2023-09-01 07:52] LABS: INR 1.71 (0.83-1.13)
[2023-09-01 08:00] LABS: Creatinine, Serum 2.33 mg/dL (0.67-1.17); Magnesium 2.1 mg/dL (1.9-2.7); Potassium 3.3 mmol/L (3.5-5.0); eGFR CKD-EPI 29.5 (>60)
[2023-09-01] MEDS: Amoxicillin/Clavul 500/125 TAB (Augmentin 500 mg tab) PO SCH ×2 (08:44→21:14)
[2023-09-01] MEDS: Enoxaparin 100 MG/ML SYR SUBCUT SCH ×2 (08:45→21:14)
[2023-09-01] MEDS: Lidocaine PATCH 5% PATCH TRANSDERM SCH (08:47)
[2023-09-01] MEDS: Nystatin TOP POWDER 15 GM BTL TOPICAL SCH ×3 (08:48→21:15)
[2023-09-01] MEDS: Bacitracin OINTMENT TUBE TOPICAL SCH ×2 (08:49→21:15)
[2023-09-01] MEDS: Bumetanide IV 0.25 MG/ML 4 ml VIAL (1 mg) IV SLOW PU SCH ×2 (10:05→21:13)
[2023-09-01] MEDS ORDERED: Polyethylene Glycol 3350 17 GM PACKET PO PRN (10:27)
[2023-09-01] MEDS ORDERED: Potassium Chloride LIQUID 20 MEQ/15 ML LIQUID PO ONE (10:30)
[2023-09-01] MEDS ORDERED: Magnesium Sulfate 2 gm BAG 2 GM/50 ML BAG IVPB ONE (10:31)
[2023-09-01] MEDS: KCL 20 MEQ/100 ML IVPREMIX 20 MEQ/100 ML BAG IV SCH ×2 (12:23→15:35)
[2023-09-01] MEDS: Warfarin DAILY REMINDER **NOTE FOLLOW UP SCH (18:15)
[2023-09-01] MEDS: Pantoprazole VIAL 40 MG VIAL IV SCH (21:13)
[2023-09-02] MEDS: Bumetanide IV 0.25 MG/ML 4 ml VIAL (1 mg) IV SLOW PU SCH ×2 (06:42→17:50)
[2023-09-02 07:11] LABS: INR 2.02 (0.83-1.13)
[2023-09-02 07:25] LABS: Calcium 8.6 mg/dL (8.6-10.3); Creatinine, Serum 2.14 mg/dL (0.67-1.17); Magnesium 2.3 mg/dL (1.9-2.7); Potassium 3.1 mmol/L (3.5-5.0); eGFR CKD-EPI 32.7 (>60)
[2023-09-02] MEDS ORDERED: Potassium Chloride LIQUID 20 MEQ/15 ML LIQUID PO ONE ×2 (09:29→14:00)
[2023-09-02] MEDS: Amoxicillin/Clavul 500/125 TAB (Augmentin 500 mg tab) PO SCH ×2 (10:18→22:52)
[2023-09-02] MEDS: KCL 20 MEQ/100 ML IVPREMIX 20 MEQ/100 ML BAG IV SCH ×2 (10:18→12:45)
[2023-09-02] MEDS: Enoxaparin 100 MG/ML SYR SUBCUT SCH ×2 (10:18→22:53)
[2023-09-02] MEDS: Lidocaine PATCH 5% PATCH TRANSDERM SCH (10:19)
[2023-09-02] MEDS: Bacitracin OINTMENT TUBE TOPICAL SCH ×2 (10:20→23:01)
[2023-09-02] MEDS: Nystatin TOP POWDER 15 GM BTL TOPICAL SCH ×3 (10:20→23:01)
[2023-09-02 17:52] LABS: Calcium 8.9 mg/dL (8.6-10.3); Creatinine, Serum 2.15 mg/dL (0.67-1.17); Potassium 4.5 mmol/L (3.5-5.0); eGFR CKD-EPI 32.5 (>60)
[2023-09-02] MEDS: Pantoprazole VIAL 40 MG VIAL IV SCH (22:52)
[2023-09-03] MEDS: Bumetanide IV 0.25 MG/ML 4 ml VIAL (1 mg) IV SLOW PU SCH ×2 (05:45→17:16)
[2023-09-03 07:18] LABS: INR 2.56 (0.83-1.13)
[2023-09-03 07:29] LABS: Creatinine, Serum 2.19 mg/dL (0.67-1.17); Magnesium 2.1 mg/dL (1.9-2.7); Potassium 3.4 mmol/L (3.5-5.0); eGFR CKD-EPI 31.8 (>60)
[2023-09-03] MEDS: Warfarin DAILY REMINDER **NOTE FOLLOW UP SCH ×2 (08:22→17:16)
[2023-09-03] MEDS: Amoxicillin/Clavul 500/125 TAB (Augmentin 500 mg tab) PO SCH ×2 (08:31→20:41)
[2023-09-03] MEDS: Enoxaparin 100 MG/ML SYR SUBCUT SCH ×2 (08:34→20:42)
[2023-09-03] MEDS: Lidocaine PATCH 5% PATCH TRANSDERM SCH (08:37)
[2023-09-03] MEDS: Bacitracin OINTMENT TUBE TOPICAL SCH ×2 (08:48→21:00)
[2023-09-03] MEDS: Nystatin TOP POWDER 15 GM BTL TOPICAL SCH ×3 (08:48→21:00)
[2023-09-03] MEDS ORDERED: Potassium Chlor 20 meq TAB.ER PO ONE (10:50)
[2023-09-03] MEDS: Pantoprazole VIAL 40 MG VIAL IV SCH (22:04)
[2023-09-04] MEDS: Bumetanide IV 0.25 MG/ML 4 ml VIAL (1 mg) IV SLOW PU SCH ×2 (05:38→17:30)
[2023-09-04] MEDS: Amoxicillin/Clavul 500/125 TAB (Augmentin 500 mg tab) PO SCH ×2 (09:38→20:09)
[2023-09-04] MEDS: Bacitracin OINTMENT TUBE TOPICAL SCH ×2 (09:39→20:11)
[2023-09-04] MEDS: Enoxaparin 100 MG/ML SYR SUBCUT SCH ×2 (09:39→20:10)
[2023-09-04] MEDS: Nystatin TOP POWDER 15 GM BTL TOPICAL SCH ×3 (09:49→20:12)
[2023-09-04] MEDS: Lidocaine PATCH 5% PATCH TRANSDERM SCH (09:49)
[2023-09-04 09:58] LABS: INR 2.31 (0.83-1.13)
[2023-09-04 10:14] LABS: Calcium 8.7 mg/dL (8.6-10.3); Creatinine, Serum 2.12 mg/dL (0.67-1.17); Magnesium 1.9 mg/dL (1.9-2.7); Potassium 3.5 mmol/L (3.5-5.0); eGFR CKD-EPI 33.1 (>60)
[2023-09-04 10:27] LABS: ABS Basophils 0.1 10^3/uL (0.0-0.1); ABS Eosinophils 0.1 10^3/uL (0.0-0.5); ABS Lymphocytes 0.6 10^3/uL (1.0-4.8); ABS Monocytes 0.3 10^3/uL (0.0-1.1); ABS Nucleated RBC 0.02 10^3/ul; Eosinophil % 2.4 %; Hematocrit 30.5 % (38-53); Hemoglobin 10.2 g/dL (13.2-16.3); Lymphocyte % 12.2 %; Mean Corpuscular Hemoglobin 31.2 pg (27-33); Mean Corpuscular Hgb Conc 33.5 g/dL (31-36); Mean Platelet Volume 7.2 fL (7.5-11.2); Nucleated Red Blood Cells % 0.3 %/100WBC (0.0-0.8); Platelet Count 233 10^3/uL (150-450); Red Blood Count 3.28 10^6/uL (4.06-5.63); Red Cell Distribution Width 16.1 % (12-17); White Blood Count 5.2 10^3/uL (3.6-10.2)
[2023-09-04] MEDS: Warfarin DAILY REMINDER **NOTE FOLLOW UP SCH (17:24)
[2023-09-04] MEDS ORDERED: Sacubitril/Valsartan 97/103(NF) PO SCH (21:00)
[2023-09-04] MEDS: Pantoprazole VIAL 40 MG VIAL IV SCH (22:46)
[2023-09-05] MEDS: Bumetanide IV 0.25 MG/ML 4 ml VIAL (1 mg) IV SLOW PU SCH ×2 (05:50→17:23)
[2023-09-05 06:07] LABS: INR 2.5 (0.83-1.13)
[2023-09-05 06:48] LABS: Creatinine, Serum 2.07 mg/dL (0.67-1.17); Potassium 3.2 mmol/L (3.5-5.0)
[2023-09-05] MEDS ORDERED: Potassium Chlor 20 meq TAB.ER PO ONE (07:03)
[2023-09-05] MEDS: Amoxicillin/Clavul 500/125 TAB (Augmentin 500 mg tab) PO SCH ×2 (08:01→21:02)
[2023-09-05] MEDS: Enoxaparin 100 MG/ML SYR SUBCUT SCH ×2 (08:02→21:02)
[2023-09-05] MEDS: Lidocaine PATCH 5% PATCH TRANSDERM SCH (08:03)
[2023-09-05] MEDS: Nystatin TOP POWDER 15 GM BTL TOPICAL SCH ×3 (08:04→21:02)
[2023-09-05] MEDS: Bacitracin OINTMENT TUBE TOPICAL SCH ×2 (08:05→21:02)
[2023-09-05] MEDS: Warfarin DAILY REMINDER **NOTE FOLLOW UP SCH (17:23)
[2023-09-05] MEDS: Pantoprazole VIAL 40 MG VIAL IV SCH (21:01)
[2023-09-06] MEDS: Amoxicillin/Clavul 500/125 TAB (Augmentin 500 mg tab) PO SCH ×2 (09:29→21:24)
[2023-09-06] MEDS: Enoxaparin 100 MG/ML SYR SUBCUT SCH (09:30)
[2023-09-06] MEDS: Nystatin TOP POWDER 15 GM BTL TOPICAL SCH ×3 (09:35→21:24)
[2023-09-06] MEDS: Lidocaine PATCH 5% PATCH TRANSDERM SCH (09:35)
[2023-09-06] MEDS: Bacitracin OINTMENT TUBE TOPICAL SCH ×2 (09:36→21:24)
[2023-09-06 10:50] LABS: ABS Eosinophils 0.1 10^3/uL (0.0-0.5); ABS Lymphocytes 0.6 10^3/uL (1.0-4.8); ABS Monocytes 0.3 10^3/uL (0.0-1.1); ABS Neutrophils 3.8 10^3/uL (1.5-7.6); Hematocrit 33.7 % (38-53); Hemoglobin 11.4 g/dL (13.2-16.3); Lymphocyte % 12.2 %; Mean Corpuscular Hgb Conc 33.7 g/dL (31-36); Mean Platelet Volume 7.4 fL (7.5-11.2); Nucleated Red Blood Cells % 0.1 %/100WBC (0.0-0.8); Platelet Count 239 10^3/uL (150-450); Red Blood Count 3.67 10^6/uL (4.06-5.63); Red Cell Distribution Width 16.9 % (12-17); White Blood Count 4.8 10^3/uL (3.6-10.2)
[2023-09-06 10:55] LABS: INR 3.23 (0.83-1.13)
[2023-09-06 11:02] LABS: Calcium 9.3 mg/dL (8.6-10.3); Creatinine, Serum 2.59 mg/dL (0.67-1.17); Phosphorus 4.1 mg/dL (2.5-5.0); Potassium 3.4 mmol/L (3.5-5.0)
[2023-09-06] MEDS ORDERED: Potassium Chlor 20 meq TAB.ER PO ONE (11:35)
[2023-09-06] MEDS ORDERED: NS 0.9% 250 ml 250 ML IV SCH (15:00)
[2023-09-06] MEDS: Warfarin DAILY REMINDER **NOTE FOLLOW UP SCH (17:12)
[2023-09-06 18:58] LABS: Calcium 9.3 mg/dL (8.6-10.3); Creatinine, Serum 2.46 mg/dL (0.67-1.17); Potassium 3.8 mmol/L (3.5-5.0); eGFR CKD-EPI 27.7 (>60)
[2023-09-06] MEDS: Pantoprazole VIAL 40 MG VIAL IV SCH (21:23)
[2023-09-07 05:55] LABS: Rapid COVID-19 Molecular Undetected (Undetected)
[2023-09-07 06:25] LABS: ABS Eosinophils 0.1 10^3/uL (0.0-0.5); ABS Lymphocytes 0.8 10^3/uL (1.0-4.8); ABS Monocytes 0.4 10^3/uL (0.0-1.1); ABS Neutrophils 3.1 10^3/uL (1.5-7.6); ABS Nucleated RBC 0.01 10^3/ul; Eosinophil % 2.2 %; Hematocrit 32.7 % (38-53); Hemoglobin 11.2 g/dL (13.2-16.3); Lymphocyte % 17.4 %; Mean Corpuscular Hemoglobin 31.6 pg (27-33); Mean Corpuscular Hgb Conc 34.2 g/dL (31-36); Mean Corpuscular Volume 92.3 fL (80-97); Mean Platelet Volume 7.1 fL (7.5-11.2); Nucleated Red Blood Cells % 0.2 %/100WBC (0.0-0.8); Platelet Count 207 10^3/uL (150-450); Red Blood Count 3.54 10^6/uL (4.06-5.63); Red Cell Distribution Width 17.4 % (12-17); White Blood Count 4.4 10^3/uL (3.6-10.2)
[2023-09-07 06:37] LABS: INR 3.55 (0.83-1.13)
[2023-09-07 06:42] LABS: Calcium 9.2 mg/dL (8.6-10.3); Creatinine, Serum 2.18 mg/dL (0.67-1.17); Potassium 3.5 mmol/L (3.5-5.0)
[2023-09-07] MEDS: Bacitracin OINTMENT TUBE TOPICAL SCH (07:52)
[2023-09-07] MEDS: Nystatin TOP POWDER 15 GM BTL TOPICAL SCH (07:53)
[2023-09-07 12:14] VITALS: BP 127/56
[2023-09-07] MEDS: Lidocaine PATCH 5% PATCH TRANSDERM SCH (12:17)
== END 2023-09-07 13:57 | DRG 291 ==
LOC: EDHOLD 11:52 → ED 11:52 → SUATTDRO 16:03 → MEDTELE 17:38 → SUATTDRO 09-01 13:35
PROVIDERS: ADMIT Internal Medicine; ATTEND Internal Medicine

== ENCOUNTER 2024-01-05 20:56 | Inpatient (IN) ==
[2024-01-05] MEDS: Albuterol HFA INHALER 8 gm MDI INH ONE (23:13)
[2024-01-05 23:31] LABS: ABS Basophils 0.1 10^3/uL (0.0-0.1); ABS Eosinophils 0.1 10^3/uL (0.0-0.5); ABS Lymphocytes 0.5 10^3/uL (1.0-4.8); ABS Monocytes 0.3 10^3/uL (0.0-1.1); ABS Neutrophils 3.2 10^3/uL (1.5-7.6); Eosinophil % 3.4 %; Hematocrit 30.3 % (38-53); Hemoglobin 10.3 g/dL (13.2-16.3); Lymphocyte % 11.8 %; Mean Corpuscular Hemoglobin 30.9 pg (27-33); Mean Corpuscular Hgb Conc 34.1 g/dL (31-36); Mean Corpuscular Volume 90.6 fL (80-97); Mean Platelet Volume 7.1 fL (7.5-11.2); Nucleated Red Blood Cells % 0.1 %/100WBC (0.0-0.8); Platelet Count 188 10^3/uL (150-450); Red Blood Count 3.34 10^6/uL (4.06-5.63); Red Cell Distribution Width 16.5 % (12-17); White Blood Count 4.2 10^3/uL (3.6-10.2)
[2024-01-05 23:44] LABS: Activated Partial Thrombo Time 34.7 seconds (26.0-38.0); INR 1.49 (0.83-1.13)
[2024-01-06 00:10] LABS: Albumin/Globulin Ratio 2.1 (1-3); Calcium 8.7 mg/dL (8.6-10.3); Creatinine, Serum 1.59 mg/dL (0.67-1.17); Globulin 1.9 g/dL (2-4); Potassium 4.4 mmol/L (3.5-5.0); Total Bilirubin 0.8 mg/dL (0.2-1.0); Total Protein 5.9 g/dL (6.4-8.9); eGFR CKD-EPI 46.4 (>60)
[2024-01-06 00:30] LABS: Venous Bicarbonate HCO3 29.4 mmol/L (24-28)
[2024-01-06] MEDS: Furosemide 40 mg/4 ml IV VIAL IV ONE (00:31)
[2024-01-06 00:56] LABS: High Sensitivity Troponin 1 Hr 9 pg/mL (<20)
[2024-01-06] MEDS ORDERED: Warfarin per PHARMACY **NOTE FOLLOW UP SCH (04:00)
[2024-01-06] MEDS: Cholecalciferol (VIT D3) 1,000 unit TAB PO SCH (08:56)
[2024-01-06] MEDS: Bumetanide IV 0.25 MG/ML 4 ml VIAL (1 mg) IV SLOW PU ONE (08:59)
[2024-01-06] MEDS: Heparin 5000 UNITS/ML 1 mL VIAL SUBCUT SCH (08:59)
[2024-01-06] MEDS: Potassium Chlor 20 meq TAB.ER PO SCH (08:59)
[2024-01-06] MEDS: Enoxaparin 100 MG/ML SYR SUBCUT SCH (10:55)
[2024-01-06] MEDS: Warfarin DAILY REMINDER **NOTE FOLLOW UP SCH (17:28)
[2024-01-07 06:42] LABS: Calcium 8.4 mg/dL (8.6-10.3); Creatinine, Serum 1.96 mg/dL (0.67-1.17); Magnesium 2.1 mg/dL (1.9-2.7); Potassium 3.8 mmol/L (3.5-5.0); eGFR CKD-EPI 36.1 (>60)
[2024-01-07 06:46] LABS: INR 1.62 (0.83-1.13)
[2024-01-07] MEDS ORDERED: Bumetanide IV 0.25 MG/ML 4 ml VIAL (1 mg) IV SLOW PU SCH (09:00)
[2024-01-07] MEDS: Bumetanide IV 0.25 MG/ML 4 ml VIAL (1 mg) IV SLOW PU SCH (10:51)
[2024-01-07] MEDS ORDERED: Sulfur Hexaflouride MICROSPHR 25 MG VIAL ONE (13:12)
[2024-01-07] MEDS: Polyethylene Glycol 3350 17 GM PACKET PO PRN (21:52)
[2024-01-07] MEDS: Senna TAB 8.6 mg TAB PO PRN (21:54)
[2024-01-08 06:47] LABS: INR 1.83 (0.83-1.13)
[2024-01-08] MEDS: Albuterol/Ipratropium NEB.SOL (2.5/0.5 MG) 3 ML NEB.SOLN INH SCH (16:27)
[2024-01-08] MEDS ORDERED: Albuterol/Ipratropium NEB.SOL (2.5/0.5 MG) 3 ML NEB.SOLN INH PRN (20:58)
[2024-01-09 06:43] LABS: INR 2.1 (0.83-1.13)
[2024-01-09] MEDS: Albuterol/Ipratropium NEB.SOL (2.5/0.5 MG) 3 ML NEB.SOLN INH SCH ×2 (07:10→19:50)
[2024-01-09] MEDS ORDERED: Albuterol/Ipratropium NEB.SOL (2.5/0.5 MG) 3 ML NEB.SOLN INH PRN (19:57)
[2024-01-10 07:09] LABS: INR 3.37 (0.83-1.13)
[2024-01-10 09:31] LABS: Rapid COVID-19 Molecular Undetected (Undetected)
[2024-01-10 10:08] VITALS: BP 138/57
== END 2024-01-10 10:51 | DRG 291 ==
LOC: EDHOLD 20:56 → ED 20:56 → SUATTDRO 01-06 02:30 → MEDTELE 01-06 03:02
PROVIDERS: ADMIT Student in an Organized Health Care Education/Training Program; ATTEND Internal Medicine

== ENCOUNTER 2024-01-14 12:18 | Inpatient (IN) ==
[2024-01-14 14:00] LABS: ALT 26 U/L (7-52); Albumin 5.4 g/dL (3.2-5.2); Alkaline Phosphatase 65 U/L (35-149); Anion Gap 9 mmol/L (2-16); Blood Urea Nitrogen 49 mg/dL (6-24); CO2 Carbon Dioxide 37 mmol/L (22-32); Calcium 10.1 mg/dL (8.6-10.3); Chloride 95 mmol/L (101-111); Creatinine, Serum 1.74 mg/dL (0.67-1.17); Globulin 2.7 g/dL (2-4); Glucose 114 mg/dL (70-100); Sodium 141 mmol/L (135-145); Total Bilirubin 0.9 mg/dL (0.2-1.0); Total Protein 8.1 g/dL (6.4-8.9); eGFR CKD-EPI 41.7 (>60)
[2024-01-14] MEDS: Bumetanide IV 0.25 MG/ML 4 ml VIAL (1 mg) IV SLOW PU ONE (14:18)
[2024-01-14 14:29] LABS: Hemoglobin 13.5 g/dL (13.2-16.3); Mean Corpuscular Hemoglobin 29.8 pg (27-33); Mean Corpuscular Hgb Conc 32.9 g/dL (31-36); Mean Corpuscular Volume 90.8 fL (80-97); Mean Platelet Volume 6.8 fL (7.5-11.2); Platelet Count 367 10^3/uL (150-450); Red Blood Count 4.51 10^6/uL (4.06-5.63); White Blood Count 15.9 10^3/uL (3.6-10.2)
[2024-01-14 15:01] LABS: Potassium Redraw 4.1 mmol/L (3.5-5.0)
[2024-01-14 15:17] LABS: ABS Lymphocytes 0.3 10^3/uL (1.0-4.8); ABS Monocytes 0.1 10^3/uL (0.0-1.1); ABS Neutrophils 15.4 10^3/uL (1.5-7.6); ABS Nucleated RBC 0.01 10^3/ul; Eosinophil % 0.3 %; Lymphocyte % 1.9 %
[2024-01-14 15:48] LABS: C Reactive Protein 14.11 mg/L (<8.01)
[2024-01-14] MEDS ORDERED: Senna TAB 8.6 mg TAB PO PRN (16:06)
[2024-01-14] MEDS ORDERED: Albuterol/Ipratropium NEB.SOL (2.5/0.5 MG) 3 ML NEB.SOLN INH PRN ×2 (16:45→20:09)
[2024-01-14] MEDS ORDERED: Warfarin per PHARMACY **NOTE FOLLOW UP SCH ×2 (17:00)
[2024-01-14 17:19] LABS: Urine Appearance Clear; Urine Bilirubin Negative (Negative); Urine Blood Trace (Negative); Urine Color Light-Yellow; Urine Glucose 1+ (>=70 mg/dL) (Negative); Urine Ketones Negative (Negative); Urine Nitrite Negative (Negative); Urine Protein Negative (Negative); Urine Specific Gravity 1.011 (1.002-1.030); Urine Urobilinogen Negative (Negative)
[2024-01-14 17:20] LABS: INR 3.18 (0.83-1.13)
[2024-01-14] MEDS: Ondansetron 4 mg VIAL 2 MG/ML 2 ml VIAL IV ONE (17:55)
[2024-01-14] MEDS: Metoclopramide 5 MG/ML VIAL (10 mg) IV ONE (17:58)
[2024-01-14] MEDS: cefTRIAXone 1 gm/50 mL D5W 1 GM/50 ML BAG IV SCH (17:58)
[2024-01-14] MEDS: methylPREDNISolone SOD SUCC 40 mg/ml 1 ml VIAL IV SCH (17:58)
[2024-01-14] MEDS: Warfarin - No Order Today **NOTE FOLLOW UP ONE (17:59)
[2024-01-14 18:01] LABS: PCO2 Arterial 45 mmHg (35-45); PO2 Arterial 89 mmHg (80-100)
[2024-01-14] MEDS: Azithromycin 500 mg/250 ml NS 500 MG/250 ML BAG IVPB SCH ×2 (19:29→20:01)
[2024-01-14] MEDS: Bumetanide IV 0.25 MG/ML 4 ml VIAL (1 mg) IV SLOW PU SCH (19:50)
[2024-01-14] MEDS: Albuterol/Ipratropium NEB.SOL (2.5/0.5 MG) 3 ML NEB.SOLN INH SCH (20:09)
[2024-01-15 06:52] LABS: INR 3.88 (0.83-1.13)
[2024-01-15 07:14] LABS: Calcium 7.9 mg/dL (8.6-10.3); Creatinine, Serum 2.01 mg/dL (0.67-1.17); Magnesium 2.4 mg/dL (1.9-2.7); Potassium 4.1 mmol/L (3.5-5.0)
[2024-01-15 07:54] LABS: ABS Lymphocytes 0.3 10^3/uL (1.0-4.8); ABS Monocytes 0.2 10^3/uL (0.0-1.1); ABS Neutrophils 16.5 10^3/uL (1.5-7.6); Hematocrit 33.8 % (38-53); Hemoglobin 11.1 g/dL (13.2-16.3); Lymphocyte % 1.9 %; Mean Corpuscular Hemoglobin 29.7 pg (27-33); Mean Corpuscular Hgb Conc 32.8 g/dL (31-36); Mean Corpuscular Volume 90.6 fL (80-97); Mean Platelet Volume 7.5 fL (7.5-11.2); Platelet Count 252 10^3/uL (150-450); Red Blood Count 3.73 10^6/uL (4.06-5.63); Red Cell Distribution Width 16.2 % (12-17); White Blood Count 17.1 10^3/uL (3.6-10.2)
[2024-01-15] MEDS: methylPREDNISolone SOD SUCC 40 mg/ml 1 ml VIAL IV SCH (12:23)
[2024-01-15] MEDS: Warfarin DAILY REMINDER **NOTE FOLLOW UP SCH (16:56)
[2024-01-16 07:07] LABS: ABS Lymphocytes 0.2 10^3/uL (1.0-4.8); ABS Monocytes 0.1 10^3/uL (0.0-1.1); ABS Neutrophils 6.1 10^3/uL (1.5-7.6); Hematocrit 28.4 % (38-53); Hemoglobin 9.8 g/dL (13.2-16.3); Mean Corpuscular Hemoglobin 30.5 pg (27-33); Mean Corpuscular Hgb Conc 34.4 g/dL (31-36); Mean Corpuscular Volume 88.6 fL (80-97); Mean Platelet Volume 7.5 fL (7.5-11.2); Platelet Count 197 10^3/uL (150-450); Red Blood Count 3.21 10^6/uL (4.06-5.63); Red Cell Distribution Width 15.8 % (12-17); White Blood Count 6.5 10^3/uL (3.6-10.2)
[2024-01-16 07:11] LABS: INR 4.24 (0.83-1.13)
[2024-01-16 07:21] LABS: Calcium 7.6 mg/dL (8.6-10.3); Creatinine, Serum 1.62 mg/dL (0.67-1.17); Magnesium 2.6 mg/dL (1.9-2.7); Potassium 3.3 mmol/L (3.5-5.0); eGFR CKD-EPI 45.4 (>60)
[2024-01-16] MEDS ORDERED: Potassium Chlor 20 meq TAB.ER PO ONE (07:48)
[2024-01-16] MEDS: Potassium Chloride LIQUID 20 MEQ/15 ML LIQUID PO ONE ×2 (10:39)
[2024-01-16] MEDS: Warfarin - No Order Today **NOTE FOLLOW UP ONE (18:30)
[2024-01-17 06:57] LABS: ABS Lymphocytes 0.5 10^3/uL (1.0-4.8); ABS Monocytes 0.4 10^3/uL (0.0-1.1); ABS Neutrophils 5.5 10^3/uL (1.5-7.6); Eosinophil % 0.1 %; Hematocrit 30.8 % (38-53); Hemoglobin 10.3 g/dL (13.2-16.3); Mean Corpuscular Hemoglobin 30.1 pg (27-33); Mean Corpuscular Hgb Conc 33.5 g/dL (31-36); Mean Corpuscular Volume 89.9 fL (80-97); Mean Platelet Volume 7.5 fL (7.5-11.2); Platelet Count 206 10^3/uL (150-450); Red Blood Count 3.43 10^6/uL (4.06-5.63); Red Cell Distribution Width 15.4 % (12-17); White Blood Count 6.4 10^3/uL (3.6-10.2)
[2024-01-17 06:59] LABS: INR 3.24 (0.83-1.13)
[2024-01-17 07:36] LABS: Calcium 7.8 mg/dL (8.6-10.3); Creatinine, Serum 1.5 mg/dL (0.67-1.17); Magnesium 2.5 mg/dL (1.9-2.7); eGFR CKD-EPI 49.8 (>60)
[2024-01-17] MEDS: Potassium EFFERVES 25 meq TAB PO ONE ×2 (09:59→12:45)
[2024-01-17] MEDS: Potassium Chlor 20 meq TAB.ER PO ONE (10:00)
[2024-01-17 10:15] VITALS: BP 136/49
[2024-01-17] MEDS ORDERED: Potassium Chlor 20 meq TAB.ER PO ONE (12:00)
== END 2024-01-17 13:55 | DRG 193 ==
LOC: ED 12:18 → EDHOLD 12:18 → MEDTELE 17:46
PROVIDERS: ADMIT Internal Medicine; ATTEND Internal Medicine

== ENCOUNTER 2024-03-15 07:20 | Inpatient (IN) ==
[2024-03-15] MEDS: Vancomycin 1,500 MG in NS 0.9% 250 ml 250 ML IVPB ONE (08:40)
[2024-03-15 09:01] LABS: INR 1.8 (0.83-1.13)
[2024-03-15 09:15] LABS: ALT 10 U/L (7-52); Albumin 3.9 g/dL (3.2-5.2); Albumin/Globulin Ratio 1.8 (1-3); Alkaline Phosphatase 54 U/L (35-149); Anion Gap 10 mmol/L (2-16); Blood Urea Nitrogen 28 mg/dL (6-24); C Reactive Protein 50.12 mg/L (<8.01); CO2 Carbon Dioxide 33 mmol/L (22-32); Calcium 8.6 mg/dL (8.6-10.3); Chloride 98 mmol/L (101-111); Creatinine, Serum 1.55 mg/dL (0.67-1.17); Globulin 2.2 g/dL (2-4); Glucose 103 mg/dL (70-100); Sodium 141 mmol/L (135-145); Total Bilirubin 0.5 mg/dL (0.2-1.0); Total Protein 6.1 g/dL (6.4-8.9); eGFR CKD-EPI 47.9 (>60)
[2024-03-15 09:34] LABS: ABS Lymphocytes 0.5 10^3/uL (1.0-4.8); ABS Monocytes 0.4 10^3/uL (0.0-1.1); ABS Neutrophils 2.3 10^3/uL (1.5-7.6); Eosinophil % 1.4 %; Hematocrit 26.5 % (38-53); Hemoglobin 8.8 g/dL (13.2-16.3); Lymphocyte % 15.9 %; Mean Corpuscular Hemoglobin 29.7 pg (27-33); Mean Corpuscular Hgb Conc 33.3 g/dL (31-36); Mean Corpuscular Volume 89.3 fL (80-97); Mean Platelet Volume 6.1 fL (7.5-11.2); Platelet Count 230 10^3/uL (150-450); Red Blood Count 2.97 10^6/uL (4.06-5.63); Red Cell Distribution Width 17.1 % (12-17); White Blood Count 3.3 10^3/uL (3.6-10.2)
[2024-03-15] MEDS ORDERED: Albuterol/Ipratropium NEB.SOL (2.5/0.5 MG) 3 ML NEB.SOLN INH PRN (13:29)
[2024-03-15] MEDS ORDERED: Vancomycin per Pharmacy 1 EA NOTE FOLLOW UP SCH (17:00)
[2024-03-15] MEDS: Potassium Chlor 20 meq TAB.ER PO SCH (18:08)
[2024-03-15] MEDS: Vancomycin 1000 MG in NS 0.9% 250 ML IVPB SCH (22:46)
[2024-03-16 06:20] LABS: ABS Eosinophils 0.1 10^3/uL (0.0-0.5); ABS Lymphocytes 0.5 10^3/uL (1.0-4.8); ABS Monocytes 0.3 10^3/uL (0.0-1.1); ABS Neutrophils 2.7 10^3/uL (1.5-7.6); Eosinophil % 1.5 %; Hematocrit 26.3 % (38-53); Mean Corpuscular Hemoglobin 30.5 pg (27-33); Mean Corpuscular Hgb Conc 34.2 g/dL (31-36); Mean Corpuscular Volume 89.1 fL (80-97); Mean Platelet Volume 6.3 fL (7.5-11.2); Platelet Count 249 10^3/uL (150-450); Red Blood Count 2.95 10^6/uL (4.06-5.63); Red Cell Distribution Width 17.2 % (12-17); White Blood Count 3.6 10^3/uL (3.6-10.2)
[2024-03-16 06:26] LABS: INR 1.95 (0.83-1.13)
[2024-03-16 06:43] LABS: Calcium 8.7 mg/dL (8.6-10.3); Creatinine, Serum 1.43 mg/dL (0.67-1.17); Potassium 4.4 mmol/L (3.5-5.0); eGFR CKD-EPI 52.7 (>60)
[2024-03-16] MEDS: Phytonadione Oral Solution 5 MG/25 ML UDC PO ONE (16:36)
[2024-03-16] MEDS: Enoxaparin 80 MG/0.8 ML SYR SUBCUT SCH (16:36)
[2024-03-16] MEDS ORDERED: Warfarin DAILY REMINDER **NOTE FOLLOW UP SCH (17:00)
[2024-03-16] MEDS: Vancomycin 1000 MG in NS 0.9% 250 ML IVPB SCH (23:44)
[2024-03-17 11:59] LABS: ABS Lymphocytes 0.5 10^3/uL (1.0-4.8); ABS Monocytes 0.3 10^3/uL (0.0-1.1); Eosinophil % 1.5 %; Hematocrit 29.9 % (38-53); Hemoglobin 10.1 g/dL (13.2-16.3); Lymphocyte % 16.9 %; Mean Corpuscular Hemoglobin 30.3 pg (27-33); Mean Corpuscular Hgb Conc 33.9 g/dL (31-36); Mean Corpuscular Volume 89.2 fL (80-97); Mean Platelet Volume 6.2 fL (7.5-11.2); Nucleated Red Blood Cells % 0.1 %/100WBC (0.0-0.8); Platelet Count 265 10^3/uL (150-450); Red Blood Count 3.35 10^6/uL (4.06-5.63); Red Cell Distribution Width 17.5 % (12-17); White Blood Count 2.9 10^3/uL (3.6-10.2)
[2024-03-17 12:08] LABS: INR 1.57 (0.83-1.13)
[2024-03-17 12:14] LABS: Calcium 8.9 mg/dL (8.6-10.3); Creatinine, Serum 1.55 mg/dL (0.67-1.17); Potassium 3.6 mmol/L (3.5-5.0); eGFR CKD-EPI 47.9 (>60)
[2024-03-17 12:39] LABS: Folate 16.77 ng/mL (5.90-24.80)
[2024-03-17] MEDS: Vancomycin Trough Check NOTE FOLLOW UP ONE (13:19)
[2024-03-18 08:32] LABS: ABS Eosinophils 0.1 10^3/uL (0.0-0.5); ABS Lymphocytes 0.5 10^3/uL (1.0-4.8); ABS Monocytes 0.2 10^3/uL (0.0-1.1); ABS Neutrophils 2.8 10^3/uL (1.5-7.6); Eosinophil % 1.4 %; Hematocrit 30.5 % (38-53); Hemoglobin 10.1 g/dL (13.2-16.3); Lymphocyte % 14.6 %; Mean Corpuscular Hemoglobin 29.5 pg (27-33); Mean Corpuscular Volume 89.5 fL (80-97); Mean Platelet Volume 6.1 fL (7.5-11.2); Nucleated Red Blood Cells % 0.1 %/100WBC (0.0-0.8); Platelet Count 261 10^3/uL (150-450); Red Blood Count 3.41 10^6/uL (4.06-5.63); Red Cell Distribution Width 17.1 % (12-17); White Blood Count 3.6 10^3/uL (3.6-10.2)
[2024-03-18 09:30] LABS: Calcium 8.7 mg/dL (8.6-10.3); Creatinine, Serum 1.66 mg/dL (0.67-1.17); Potassium 3.6 mmol/L (3.5-5.0); eGFR CKD-EPI 44.1 (>60)
[2024-03-18] MEDS: Vancomycin 1,250 MG in NS 0.9% 250 ml 250 ML IVPB SCH (11:37)
[2024-03-18] MEDS: Vancomycin Random Level NOTE FOLLOW UP ONE (11:38)
[2024-03-19 07:45] LABS: ABS Basophils 0.1 10^3/uL (0.0-0.1); ABS Eosinophils 0.1 10^3/uL (0.0-0.5); ABS Lymphocytes 0.7 10^3/uL (1.0-4.8); ABS Monocytes 0.4 10^3/uL (0.0-1.1); ABS Neutrophils 3.4 10^3/uL (1.5-7.6); Eosinophil % 1.8 %; Hematocrit 30.9 % (38-53); Hemoglobin 10.6 g/dL (13.2-16.3); Lymphocyte % 15.7 %; Mean Corpuscular Hemoglobin 30.4 pg (27-33); Mean Corpuscular Hgb Conc 34.2 g/dL (31-36); Mean Corpuscular Volume 88.9 fL (80-97); Mean Platelet Volume 6.2 fL (7.5-11.2); Nucleated Red Blood Cells % 0.1 %/100WBC (0.0-0.8); Platelet Count 265 10^3/uL (150-450); Red Blood Count 3.48 10^6/uL (4.06-5.63); White Blood Count 4.8 10^3/uL (3.6-10.2)
[2024-03-19 08:30] LABS: Calcium 8.9 mg/dL (8.6-10.3); Creatinine, Serum 1.55 mg/dL (0.67-1.17); Potassium 3.8 mmol/L (3.5-5.0); eGFR CKD-EPI 47.9 (>60)
[2024-03-20 09:34] LABS: ABS Eosinophils 0.1 10^3/uL (0.0-0.5); ABS Lymphocytes 0.6 10^3/uL (1.0-4.8); ABS Monocytes 0.3 10^3/uL (0.0-1.1); ABS Neutrophils 4.1 10^3/uL (1.5-7.6); ABS Nucleated RBC 0.01 10^3/ul; Eosinophil % 1.3 %; Hematocrit 34.2 % (38-53); Hemoglobin 11.3 g/dL (13.2-16.3); Lymphocyte % 11.7 %; Mean Corpuscular Hemoglobin 29.9 pg (27-33); Mean Corpuscular Volume 90.5 fL (80-97); Mean Platelet Volume 6.3 fL (7.5-11.2); Nucleated Red Blood Cells % 0.2 %/100WBC (0.0-0.8); Platelet Count 276 10^3/uL (150-450); Red Blood Count 3.77 10^6/uL (4.06-5.63); Red Cell Distribution Width 17.9 % (12-17); White Blood Count 5.1 10^3/uL (3.6-10.2)
[2024-03-20 10:07] LABS: Creatinine, Serum 1.47 mg/dL (0.67-1.17); Potassium 3.4 mmol/L (3.5-5.0)
[2024-03-20] MEDS ORDERED: Naloxone 0.4 mg VIAL 0.4 mg/ml 1 ml VIAL ONE (14:45)
[2024-03-20] MEDS ORDERED: fentaNYL 100 mcg/2 ml 50 MCG/ML VIAL ONE (14:45)
[2024-03-20] MEDS ORDERED: Flumazenil 0.5 mg/5 ml 0.1 MG/ML 5 ml VIAL ONE (14:45)
[2024-03-20] MEDS ORDERED: Midazolam 5 mg/5 ml VIAL 1 mg/ml 5 ml VIAL (5 mg) ONE (14:45)
[2024-03-20] MEDS ORDERED: Flumazenil 0.5 mg/5 ml 0.1 MG/ML 5 ml VIAL IV PRN (15:56)
[2024-03-20] MEDS ORDERED: Naloxone 0.4 mg VIAL 0.4 mg/ml 1 ml VIAL IV PUSH PRN (15:56)
[2024-03-20] MEDS ORDERED: Warfarin per PHARMACY **NOTE FOLLOW UP SCH (17:00)
[2024-03-20] MEDS: fentaNYL 100 mcg/2 ml 50 MCG/ML VIAL IV SLOW PU ONE (19:55)
[2024-03-20] MEDS: Midazolam 10 mg/10 ml VIAL 1 mg/ml 10 ml VIAL (10 mg) IV SLOW PU ONE (20:20)
[2024-03-21 07:57] LABS: ABS Basophils 0.1 10^3/uL (0.0-0.1); ABS Eosinophils 0.1 10^3/uL (0.0-0.5); ABS Lymphocytes 0.8 10^3/uL (1.0-4.8); ABS Monocytes 0.3 10^3/uL (0.0-1.1); ABS Nucleated RBC 0.01 10^3/ul; Hematocrit 33.3 % (38-53); Hemoglobin 11.3 g/dL (13.2-16.3); Lymphocyte % 17.9 %; Mean Corpuscular Hemoglobin 30.2 pg (27-33); Mean Platelet Volume 6.2 fL (7.5-11.2); Nucleated Red Blood Cells % 0.2 %/100WBC (0.0-0.8); Platelet Count 249 10^3/uL (150-450); Red Blood Count 3.74 10^6/uL (4.06-5.63); Red Cell Distribution Width 17.8 % (12-17); White Blood Count 4.2 10^3/uL (3.6-10.2)
[2024-03-21 08:13] LABS: Creatinine, Serum 1.51 mg/dL (0.67-1.17); Potassium 3.9 mmol/L (3.5-5.0); Vancomycin Trough 18.9 mcg/mL; eGFR CKD-EPI 49.4 (>60)
[2024-03-21 08:22] LABS: INR 1.28 (0.83-1.13)
[2024-03-21] MEDS: Vancomycin Trough Check NOTE FOLLOW UP ONE (08:27)
[2024-03-22 08:53] LABS: INR 1.28 (0.83-1.13)
[2024-03-22] MEDS: Vancomycin 1000 MG in NS 0.9% 250 ML IVPB SCH (11:52)
[2024-03-22] MEDS: Warfarin DAILY REMINDER **NOTE FOLLOW UP SCH (19:24)
[2024-03-23 06:24] LABS: ABS Eosinophils 0.1 10^3/uL (0.0-0.5); ABS Lymphocytes 0.6 10^3/uL (1.0-4.8); ABS Monocytes 0.4 10^3/uL (0.0-1.1); ABS Neutrophils 2.8 10^3/uL (1.5-7.6); Eosinophil % 1.7 %; Hemoglobin 10.7 g/dL (13.2-16.3); Lymphocyte % 16.2 %; Mean Corpuscular Hemoglobin 30.8 pg (27-33); Mean Corpuscular Hgb Conc 34.7 g/dL (31-36); Mean Corpuscular Volume 88.7 fL (80-97); Mean Platelet Volume 6.3 fL (7.5-11.2); Nucleated Red Blood Cells % 0.1 %/100WBC (0.0-0.8); Platelet Count 211 10^3/uL (150-450); Red Blood Count 3.49 10^6/uL (4.06-5.63); Red Cell Distribution Width 17.7 % (12-17); White Blood Count 3.9 10^3/uL (3.6-10.2)
[2024-03-23] MEDS: Enoxaparin 80 MG/0.8 ML SYR SUBCUT SCH (06:25)
[2024-03-23 06:44] LABS: Calcium 8.8 mg/dL (8.6-10.3); Creatinine, Serum 1.5 mg/dL (0.67-1.17); Potassium 3.7 mmol/L (3.5-5.0); eGFR CKD-EPI 49.8 (>60)
[2024-03-23 07:00] LABS: INR 1.43 (0.83-1.13)
[2024-03-24 08:32] LABS: ABS Basophils 0.1 10^3/uL (0.0-0.1); ABS Eosinophils 0.1 10^3/uL (0.0-0.5); ABS Lymphocytes 0.8 10^3/uL (1.0-4.8); ABS Monocytes 0.4 10^3/uL (0.0-1.1); ABS Neutrophils 2.5 10^3/uL (1.5-7.6); Eosinophil % 2.2 %; Hematocrit 35.3 % (38-53); Hemoglobin 11.7 g/dL (13.2-16.3); Lymphocyte % 20.7 %; Mean Corpuscular Hgb Conc 33.1 g/dL (31-36); Mean Corpuscular Volume 90.9 fL (80-97); Mean Platelet Volume 6.4 fL (7.5-11.2); Nucleated Red Blood Cells % 0.1 %/100WBC (0.0-0.8); Platelet Count 217 10^3/uL (150-450); Red Blood Count 3.88 10^6/uL (4.06-5.63); Red Cell Distribution Width 17.6 % (12-17); White Blood Count 3.7 10^3/uL (3.6-10.2)
[2024-03-24 08:49] LABS: INR 1.36 (0.83-1.13)
[2024-03-24 10:25] LABS: Rapid COVID-19 Molecular Undetected (Undetected)
[2024-03-24] MEDS: Vancomycin Trough Check NOTE FOLLOW UP ONE (14:00)
[2024-03-24 15:09] LABS: Creatinine, Serum 1.53 mg/dL (0.67-1.17); Vancomycin Trough 15.2 mcg/mL; eGFR CKD-EPI 48.6 (>60)
[2024-03-25 09:51] LABS: INR 1.5 (0.83-1.13)
[2024-03-26 09:36] VITALS: BP 155/67
== END 2024-03-26 12:25 | DRG 539 ==
LOC: ED 07:20 → EDHOLD 07:20 → SUATTDRO 12:37 → SSU 15:11 → SUATTDRO 03-17 11:00
PROVIDERS: ADMIT Hospitalist; ATTEND Hospitalist